=== PATIENT | male | born 1940 | race Caucasian/White ===

== ENCOUNTER 2020-06-07 11:19 | Outpatient (REF) | payer MEDICARE, SELFPAY ==
[2020-06-07 12:22] LABS: MANUAL DIFF FLAG NO
[2020-06-07 12:30] LABS: Basophils Absolute Auto 0.1 X10*3/uL (0.0-0.2); Basophils Percent Auto 0.7 % (0-2); Eosinophils Absolute Auto 0.1 X10*3/uL (0.0-0.4); Eosinophils Percent Auto 1.8 % (0-4); Hematocrit 42.4 % (42-52); Hemoglobin 13.6 g/dl (14.0-18.0); Imm Gran Abs Auto 0.01 X10*3/uL (0.00-0.03); Imm Gran Pct Auto 0.1 % (0.0-0.4); Lymphocytes Absolute Auto 1.3 X10*3/uL (1.2-4.9); Lymphocytes Percent Auto 16.6 % (20-40); Mean Corpuscular HGB Conc 32.1 g/dl (31.0-36.0); Mean Corpuscular Hemoglobin 31.4 pg (27.0-33.0); Mean Corpuscular Volume 97.9 fL (80-98); Mean Platelet Volume 10.5 fL (9.4-12.4); Monocytes Absolute Auto 0.6 X10*3/uL (0.1-1.2); Monocytes Percent Auto 7.2 % (2-11); Neutrophils Absolute Auto 5.6 X10*3/uL (2.0-8.3); Neutrophils Percent Auto 73.6 % (45-73); Platelet Count 179 X10*3/uL (160-400); Red Blood Count 4.33 X10*6/uL (4.60-5.80); Red Cell Distribution Width 12.7 % (11.0-16.0); White Blood Count 7.6 X10*3/uL (4.8-10.8)
[2020-06-07 12:40] LABS: Estimated Average Glucose 197 mg/dL; Hemoglobin A1c % 8.5 %
[2020-06-07 13:12] LABS: Alanine Aminotransferase 10 U/L (0-40); Alkaline Phosphatase 81 U/L (39-117); Anion Gap 14 (12-20); Aspartate Amino Transferase 14 U/L (5-37); Bilirubin Total 0.4 mg/dL (0.0-1.0); Blood Urea Nitrogen 21 mg/dL (9-16); Carbon Dioxide 30 mmol/L (22-29); Chloride 102 mmol/L (96-108); Estimated Glomerular Filt Rate 57; Glucose Random 290 mg/dL (60-115); Potassium 4.8 mmol/l (3.3-5.1); Sodium 141 mmol/L (135-145)
[2020-06-07 14:24] LABS: Creatinine Urine 128.02 mg/dL; Microalbum/Creatinine Ratio Ur 185.1 ug/mg cr
== END 2020-06-07 11:20 | disposition home or self-care (01) ==
LOC: HO.LAB 11:19
PROVIDERS: PCP Internal Medicine; Visit Provider Internal Medicine
DX: E11.9 Type 2 diabetes mellitus without complications (principal); I10 Essential (primary) hypertension; I42.9 Cardiomyopathy, unspecified; I25.10 Atherosclerotic heart disease of native coronary artery without angina pectoris
CPT/HCPCS: 36415; 80053; 82043; 83036; 85025

== ENCOUNTER 2020-09-17 08:01 | Outpatient (REF) | payer MEDICARE, SELFPAY ==
[2020-09-17 09:19] LABS: MANUAL DIFF FLAG NO
[2020-09-17 09:30] LABS: Estimated Average Glucose 197 mg/dL; Hemoglobin A1c % 8.5 %
[2020-09-17 09:32] LABS: Basophils Absolute Auto 0.1 X10*3/uL (0.0-0.2); Basophils Percent Auto 0.7 % (0-2); Eosinophils Absolute Auto 0.2 X10*3/uL (0.0-0.4); Eosinophils Percent Auto 2.5 % (0-4); Hematocrit 44.5 % (42-52); Hemoglobin 13.9 g/dl (14.0-18.0); Imm Gran Abs Auto 0.02 X10*3/uL (0.00-0.03); Imm Gran Pct Auto 0.3 % (0.0-0.4); Lymphocytes Absolute Auto 1.4 X10*3/uL (1.2-4.9); Lymphocytes Percent Auto 18.6 % (20-40); Mean Corpuscular HGB Conc 31.2 g/dl (31.0-36.0); Mean Corpuscular Hemoglobin 30.8 pg (27.0-33.0); Mean Corpuscular Volume 98.5 fL (80-98); Mean Platelet Volume 10.6 fL (9.4-12.4); Monocytes Absolute Auto 0.7 X10*3/uL (0.1-1.2); Monocytes Percent Auto 8.6 % (2-11); Neutrophils Absolute Auto 5.3 X10*3/uL (2.0-8.3); Neutrophils Percent Auto 69.3 % (45-73); Platelet Count 171 X10*3/uL (160-400); Red Blood Count 4.52 X10*6/uL (4.60-5.80); White Blood Count 7.6 X10*3/uL (4.8-10.8)
[2020-09-17 09:49] LABS: Alanine Aminotransferase 12 U/L (0-40); Albumin Level 4.3 g/dL (3.5-5.0); Alkaline Phosphatase 89 U/L (39-117); Anion Gap 14 (12-20); Aspartate Amino Transferase 17 U/L (5-37); Bilirubin Total 0.6 mg/dL (0.0-1.0); Blood Urea Nitrogen 19 mg/dL (9-16); Calcium 9.7 mg/dL (8.4-10.2); Carbon Dioxide 32 mmol/L (22-29); Chloride 104 mmol/L (96-108); Cholesterol 93 mg/dL; Estimated Glomerular Filt Rate > 60; Glucose Fasting 193 mg/dL (60-99); HDL Cholesterol 31 mg/dL; LDL Cholesterol Calculated 50 mg/dl; Potassium 5.2 mmol/L (3.3-5.1); Sodium 145 mmol/L (135-145); Total Protein 6.6 g/dL (6.5-8.0); Triglycerides 61 mg/dL
[2020-09-17 10:07] LABS: Prostate Specific Antigen 2.97 ng/mL (<0.05-4.0)
[2020-09-17 11:04] LABS: Glucose Urine UA NEG (NEG); Leukocyte Esterase Urine NEG (NEG); Nitrite Urine NEG (NEG); PH 6.5 (5.0-8.0); Urine Blood TRACE (NEG); Urine Ketones NEG (NEG); Urine Protein 1+ MG/DL (NEG-TRACE)
[2020-09-17 11:06] LABS: Appearance Urine CLEAR; Color Urine YELLOW
[2020-09-17 11:27] LABS: Microalbum/Creatinine Ratio Ur 238.4 ug/mg cr
[2020-09-17 11:30] LABS: Bacteria Urine 1+ /LPF; Mucus Urine 1+ /LPF; WBC Urine 0-2 /HPF (0-4)
== END 2020-09-17 08:02 | disposition home or self-care (01) ==
LOC: HO.LAB 08:01
PROVIDERS: PCP Internal Medicine; Visit Provider Internal Medicine
DX: Z00.00 Encounter for general adult medical examination without abnormal findings (principal); Z12.5 Encounter for screening for malignant neoplasm of prostate; I25.10 Atherosclerotic heart disease of native coronary artery without angina pectoris; N40.0 Benign prostatic hyperplasia without lower urinary tract symptoms; E78.00 Pure hypercholesterolemia, unspecified; E11.9 Type 2 diabetes mellitus without complications; I42.9 Cardiomyopathy, unspecified
CPT/HCPCS: 36415; 80053; 80061; 81001; 81003; 82043; 83036; 84153; 85025

== ENCOUNTER 2020-12-28 10:56 | Outpatient (REF) | payer MEDICARE, SELFPAY ==
[2020-12-28 11:27] LABS: MANUAL DIFF FLAG NO
[2020-12-28 11:36] LABS: Basophils Absolute Auto 0.1 X10*3/uL (0.0-0.2); Basophils Percent Auto 0.9 % (0-2); Eosinophils Absolute Auto 0.2 X10*3/uL (0.0-0.4); Eosinophils Percent Auto 2.4 % (0-4); Hematocrit 41.7 % (42-52); Hemoglobin 13.1 g/dl (14.0-18.0); Imm Gran Abs Auto 0.03 X10*3/uL (0.00-0.03); Imm Gran Pct Auto 0.4 % (0.0-0.4); Lymphocytes Absolute Auto 1.4 X10*3/uL (1.2-4.9); Lymphocytes Percent Auto 17.6 % (20-40); Mean Corpuscular HGB Conc 31.4 g/dl (31.0-36.0); Mean Corpuscular Hemoglobin 30.6 pg (27.0-33.0); Mean Corpuscular Volume 97.4 fL (80-98); Mean Platelet Volume 10.3 fL (9.4-12.4); Monocytes Absolute Auto 0.6 X10*3/uL (0.1-1.2); Monocytes Percent Auto 7.8 % (2-11); Neutrophils Absolute Auto 5.5 X10*3/uL (2.0-8.3); Neutrophils Percent Auto 70.9 % (45-73); Platelet Count 169 X10*3/uL (160-400); Red Blood Count 4.28 X10*6/uL (4.60-5.80); Red Cell Distribution Width 13.1 % (11.0-16.0); White Blood Count 7.8 X10*3/uL (4.8-10.8)
[2020-12-28 12:08] LABS: Alanine Aminotransferase 13 U/L (0-40); Alkaline Phosphatase 81 U/L (39-117); Anion Gap 12 (12-20); Aspartate Amino Transferase 17 U/L (5-37); Bilirubin Total 0.5 mg/dL (0.0-1.0); Blood Urea Nitrogen 17 mg/dL (9-16); Calcium 9.4 mg/dL (8.4-10.2); Carbon Dioxide 31 mmol/L (22-29); Chloride 104 mmol/L (96-108); Estimated Glomerular Filt Rate > 60; Glucose Random 253 mg/dL (60-115); Potassium 5.4 mmol/L (3.3-5.1); Sodium 142 mmol/L (135-145); Total Protein 6.2 g/dL (6.5-8.0)
[2020-12-28 12:12] LABS: Estimated Average Glucose 212 mg/dL
[2020-12-28 12:13] LABS: Creatinine Urine 136.29 mg/dL
== END 2020-12-28 10:57 | disposition home or self-care (01) ==
LOC: HO.LAB 10:56
PROVIDERS: PCP Internal Medicine; Visit Provider Internal Medicine
DX: I12.9 Hypertensive chronic kidney disease with stage 1 through stage 4 chronic kidney disease, or unspecified chronic kidney disease (principal); N18.9 Chronic kidney disease, unspecified; E11.22 Type 2 diabetes mellitus with diabetic chronic kidney disease
CPT/HCPCS: 36415; 80053; 82043; 83036; 85025

== ENCOUNTER 2021-03-06 10:50 | Outpatient (REF) | payer MEDICARE, SELFPAY ==
[2021-03-06 10:56] LABS: MANUAL DIFF FLAG NO
[2021-03-06 11:36] LABS: Basophils Absolute Auto 0.1 X10*3/uL (0.0-0.2); Basophils Percent Auto 0.6 % (0-2); Eosinophils Absolute Auto 0.2 X10*3/uL (0.0-0.4); Eosinophils Percent Auto 2.4 % (0-4); Hemoglobin 13.1 g/dl (14.0-18.0); Imm Gran Abs Auto 0.04 X10*3/uL (0.00-0.03); Imm Gran Pct Auto 0.5 % (0.0-0.4); Lymphocytes Absolute Auto 1.2 X10*3/uL (1.2-4.9); Lymphocytes Percent Auto 14.5 % (20-40); Mean Corpuscular Hemoglobin 31.4 pg (27.0-33.0); Mean Corpuscular Volume 98.3 fL (80-98); Mean Platelet Volume 10.1 fL (9.4-12.4); Monocytes Absolute Auto 0.8 X10*3/uL (0.1-1.2); Monocytes Percent Auto 9.1 % (2-11); Neutrophils Absolute Auto 6.1 X10*3/uL (2.0-8.3); Neutrophils Percent Auto 72.9 % (45-73); Platelet Count 192 X10*3/uL (160-400); Red Blood Count 4.17 X10*6/uL (4.60-5.80); Red Cell Distribution Width 13.2 % (11.0-16.0); White Blood Count 8.4 X10*3/uL (4.8-10.8)
[2021-03-06 11:54] LABS: Estimated Average Glucose 203 mg/dL; Hemoglobin A1c % 8.7 %
[2021-03-06 12:00] LABS: Alanine Aminotransferase 19 U/L (0-40); Albumin Level 3.9 g/dL (3.5-5.0); Alkaline Phosphatase 83 U/L (39-117); Anion Gap 14 (12-20); Aspartate Amino Transferase 18 U/L (5-37); Bilirubin Total 0.6 mg/dL (0.0-1.0); Blood Urea Nitrogen 19 mg/dL (9-16); Calcium 9.6 mg/dL (8.4-10.2); Carbon Dioxide 29 mmol/L (22-29); Chloride 104 mmol/L (96-108); Estimated Glomerular Filt Rate > 60; Glucose Random 267 mg/dL (60-115); Potassium 5.5 mmol/L (3.3-5.1); Sodium 141 mmol/L (135-145)
== END 2021-03-06 10:51 | disposition home or self-care (01) ==
LOC: HO.LAB 10:50
PROVIDERS: PCP Internal Medicine; Visit Provider Internal Medicine
DX: E11.9 Type 2 diabetes mellitus without complications (principal); I42.9 Cardiomyopathy, unspecified
CPT/HCPCS: 36415; 80053; 83036; 85025

== ENCOUNTER 2021-07-03 10:17 | Outpatient (REF) | payer MEDICARE, SELFPAY ==
[2021-07-03 10:37] LABS: MANUAL DIFF FLAG NO
[2021-07-03 11:08] LABS: Basophils Absolute Auto 0.1 X10*3/uL (0.0-0.2); Basophils Percent Auto 0.8 % (0-2); Eosinophils Absolute Auto 0.2 X10*3/uL (0.0-0.4); Eosinophils Percent Auto 2.7 % (0-4); Hematocrit 43.1 % (42.0-52.0); Hemoglobin 13.5 g/dl (14.0-18.0); Imm Gran Abs Auto 0.02 X10*3/uL (0.00-0.03); Imm Gran Pct Auto 0.3 % (0.0-0.4); Lymphocytes Absolute Auto 1.1 X10*3/uL (1.2-4.9); Lymphocytes Percent Auto 15.2 % (20-40); Mean Corpuscular HGB Conc 31.3 g/dl (31.0-36.0); Mean Corpuscular Hemoglobin 30.4 pg (27.0-33.0); Mean Corpuscular Volume 97.1 fL (80.0-98.0); Mean Platelet Volume 9.8 fL (9.4-12.4); Monocytes Absolute Auto 0.6 X10*3/uL (0.1-1.2); Monocytes Percent Auto 7.5 % (2-11); Neutrophils Absolute Auto 5.4 x10*3/uL (2.0-8.3); Neutrophils Percent Auto 73.5 % (45-73); Platelet Count 173 X10*3/uL (160-400); Red Blood Count 4.44 X10*6/uL (4.60-5.80); Red Cell Distribution Width 12.8 % (11.0-16.0); White Blood Count 7.3 X10*3/uL (4.8-10.8)
[2021-07-03 11:22] LABS: Estimated Average Glucose 217 mg/dL; Hemoglobin A1c % 9.2 %
[2021-07-03 11:29] LABS: Alanine Aminotransferase 16 U/L (0-40); Albumin Level 4.1 g/dL (3.5-5.0); Alkaline Phosphatase 80 U/L (39-117); Anion Gap 11 (12-20); Aspartate Amino Transferase 16 U/L (5-37); Bilirubin Total 0.5 mg/dL (0.0-1.0); Blood Urea Nitrogen 16 mg/dL (9-16); Calcium 9.6 mg/dL (8.4-10.2); Carbon Dioxide 33 mmol/L (22-29); Chloride 102 mmol/L (96-108); Estimated Glomerular Filt Rate > 60; Glucose Random 314 mg/dL (60-115); Sodium 141 mmol/L (135-145); Total Protein 6.4 g/dL (6.5-8.0)
[2021-07-03 16:08] LABS: Creatinine Urine 83.03 mg/dL; Microalbum/Creatinine Ratio Ur 227.6 ug/mg cr
== END 2021-07-03 10:18 | disposition home or self-care (01) ==
LOC: HO.LAB 10:17
PROVIDERS: PCP Internal Medicine; Visit Provider Internal Medicine
DX: E11.9 Type 2 diabetes mellitus without complications (principal); I25.10 Atherosclerotic heart disease of native coronary artery without angina pectoris
CPT/HCPCS: 36415; 80053; 82043; 83036; 85025

== ENCOUNTER 2021-08-18 11:08 | Outpatient (REF) | payer MEDICARE, SELFPAY ==
[2021-08-18 12:46] LABS: Estimated Average Glucose 189 mg/dL; Hemoglobin A1c % 8.2 %
[2021-08-18 13:23] LABS: Anion Gap 15 (12-20); Blood Urea Nitrogen 20 mg/dL (9-16); Calcium 9.7 mg/dL (8.4-10.2); Carbon Dioxide 28 mmol/L (22-29); Chloride 103 mmol/L (96-108); Estimated Glomerular Filt Rate > 60; Glucose Random 336 mg/dL (60-115); Potassium 4.8 mmol/L (3.3-5.1); Sodium 141 mmol/L (135-145)
== END 2021-08-18 11:09 | disposition home or self-care (01) ==
LOC: HO.LAB 11:08
PROVIDERS: PCP Internal Medicine; Visit Provider Internal Medicine
DX: I25.10 Atherosclerotic heart disease of native coronary artery without angina pectoris (principal); E11.9 Type 2 diabetes mellitus without complications
CPT/HCPCS: 36415; 80048; 83036

== ENCOUNTER 2021-10-21 10:37 | Outpatient (REF) | payer MEDICARE, SELFPAY ==
--- NOTE | ~2021-10-21 | XR_ITS ---
EXAMINATION: XR CHEST CLINICAL INFORMATION: Weight loss. Rule out lesion. Cardiomyopathy. COMPARISON: July 06, 2017 and July 16, 2015 TECHNIQUE: 2 views of the chest were obtained. FINDINGS: There is noted to be an enlarging 3.4 cm irregularly marginated soft tissue mass within either the superior segment of the right lower lobe or within the right upper lobe. There is also noted to be an approximately 1.6 cm nodule within the lower left lung. These lesions are suspicious for possible malignancy. Heart normal size. No evidence of pulmonary edema. No pneumothorax or pleural effusion. Unipolar pacemaker/defibrillator in place. XR/XR chest 2V IMPRESSION: 2 lung nodules as described suspicious for possible malignancy.
== END 2021-10-21 10:38 | disposition home or self-care (01) ==
LOC: HO.XRAY 10:37
PROVIDERS: PCP Internal Medicine; Visit Provider Internal Medicine
DX: I42.9 Cardiomyopathy, unspecified (principal); E11.9 Type 2 diabetes mellitus without complications; R63.4 Abnormal weight loss
CPT/HCPCS: 71046

== ENCOUNTER 2021-10-30 10:07 | Outpatient (REF) | payer MEDICARE, SELFPAY ==
--- NOTE | ~2021-10-30 | CT_ITS ---
EXAMINATION: CT CHEST WITHOUT CONTRAST CLINICAL INFORMATION: Follow-up lung nodules COMPARISON: Previous chest x-ray September 2021 TECHNIQUE: Multidetector volumetric CT imaging of the chest was done. Axial MIP volume rendering provided. Sagittal and coronal reformatted images were obtained. This CT examination was performed using dose optimization techniques as appropriate, variously including the following: *Automated exposure control *Adjustment of mA and/or kV according to patient size (this includes techniques or standardized protocols for targeted exams where dose is matched to indication/reason for exam; i.e. extremities or head) *Use of iterative reconstruction technique DLP: 127 mGy-cm FINDINGS: LUNGS: There is a 2.2 x 3 cm mass/nodule in the superior segment of the right lower lobe. This abuts the major fissure and retracts the fissure. It is uncertain whether this crosses the fissure involving the posterior segment of the right upper lobe. This has spiculated margins. Evaluation for left pulmonary nodules is somewhat limited due to artifact from respiratory motion. There is an 8 mm nodule in the superior segment of the left lower lobe axial image 280 series 7. There is a 1.3 cm nodule in the left lower lobe axial image 480 series 7. There is a 3 mm right upper lobe nodule axial image 125 series 7. There is a 3 mm left upper lobe nodule axial image 300 series 7. MEDIASTINUM: There are small mediastinal lymph nodes. No enlarged lymph nodes are seen. The heart does not appear enlarged. There is coronary artery calcification. There is a left subclavian AICD device. The thoracic aorta is normal in caliber. PLEURA: There is no pleural effusion. No pleural mass or thickening. AXILLA: No lymphadenopathy. UPPER ABDOMEN: There are gallstones in the gallbladder. There are multiple bilateral renal stones. Largest visualized stone measures 1 x 1.4 cm in the upper pole of the right kidney. There is diverticulosis of the colon. OSSEOUS STRUCTURES: There are degenerative changes of the spine. CT/CT chest wo con IMPRESSION: Bilateral pulmonary nodules, largest a 2.2 x 3 cm right lower lobe nodule//mass. Appearance is concerning for malignancy. Severe coronary artery calcification. Large bilateral renal stones. Fleischner guidelines were followed.
== END 2021-10-30 10:08 | disposition home or self-care (01) ==
LOC: HO.CT 10:07
PROVIDERS: PCP Internal Medicine; Visit Provider Internal Medicine
DX: R91.8 Other nonspecific abnormal finding of lung field (principal)
CPT/HCPCS: 71250

== ENCOUNTER 2021-11-04 12:03 | Outpatient (REF) | payer MEDICARE, SELFPAY ==
[2021-11-04 12:24] LABS: MANUAL DIFF FLAG NO
[2021-11-04 12:52] LABS: Basophils Absolute Auto 0.1 X10*3/uL (0.0-0.2); Basophils Percent Auto 1.2 % (0-2); Eosinophils Absolute Auto 0.2 X10*3/uL (0.0-0.4); Eosinophils Percent Auto 2.3 % (0-4); Hematocrit 37.3 % (42.0-52.0); Hemoglobin 11.8 g/dl (14.0-18.0); Imm Gran Abs Auto 0.02 X10*3/uL (0.00-0.03); Imm Gran Pct Auto 0.3 % (0.0-0.4); Lymphocytes Absolute Auto 1.1 X10*3/uL (1.2-4.9); Lymphocytes Percent Auto 15.1 % (20-40); Mean Corpuscular HGB Conc 31.6 g/dl (31.0-36.0); Mean Corpuscular Volume 101.1 fL (80.0-98.0); Mean Platelet Volume 10.1 fL (9.4-12.4); Monocytes Absolute Auto 0.5 X10*3/uL (0.1-1.2); Monocytes Percent Auto 7.2 % (2-11); Neutrophils Absolute Auto 5.4 x10*3/uL (2.0-8.3); Neutrophils Percent Auto 73.9 % (45-73); Platelet Count 177 X10*3/uL (160-400); Red Blood Count 3.69 X10*6/uL (4.60-5.80); Red Cell Distribution Width 13.9 % (11.0-16.0); White Blood Count 7.3 X10*3/uL (4.8-10.8)
[2021-11-04 13:07] LABS: INTERNATIONAL NORM RATIO 1.1 (0.9-1.1); Prothrombin Time 12.6 SEC (9.9-13.0)
[2021-11-04 13:10] LABS: Partial Thromboplastin Time 31.7 SEC (24.1-38.0)
== END 2021-11-04 12:04 | disposition home or self-care (01) ==
LOC: HO.LAB 12:03
PROVIDERS: PCP Internal Medicine Medical Oncology; Visit Provider Internal Medicine Medical Oncology
DX: R91.1 Solitary pulmonary nodule (principal); D49.1 Neoplasm of unspecified behavior of respiratory system; Z79.01 Long term (current) use of anticoagulants
CPT/HCPCS: 36415; 85025; 85610; 85730

== ENCOUNTER 2021-11-18 10:42 | Outpatient (REF) | payer MEDICARE, SELFPAY ==
--- NOTE | ~2021-11-18 | PE_ITS ---
EXAMINATION: Fluorine-18 FDG PET/CT Scan CLINICAL INDICATION: Initial treatment management. Right lower lobe lung nodule. PROCEDURE: 82 minutes following the intravenous administration of 18.4 mCi of fluorine 18 FDG, images from the base of the skull to the mid thighs were obtained using a combined PET/CT scanner with CT scan based attenuation correction. No oral contrast was administered. No intravenous contrast was administered. Transverse, coronal, sagittal, and volume reconstruction projections were obtained. The patient's blood glucose as determined by a finger stick, was 211 mg/dl immediately prior to injection. Total CT exam dose-length product 205.21 mGy-cm * These CT images were obtained using dose optimization techniques as appropriate, variously including the following: Automated exposure control * Adjustment of mA and/or kV according to patient size (this includes techniques or standardized protocols for targeted exams where dose is matched to indication/reason for exam; i.e. extremities or head) * Use of iterative reconstruction technique COMPARISON: No previous PET/CT scan is available for comparison. CT scan of the chest dated 10/30/2021 is available for comparison. FINDINGS: (Slice numbers described in this report are numbered superiorly to inferiorly with slice #1 in the head) NECK AND VISUALIZED HEAD: No foci of abnormal FDG activity are noted. The distribution of FDG activity is physiological. There is no cervical lymphadenopathy. THORAX: The spiculated right lung pulmonary mass a nodule in the superior segment of the left lower lobe measures 1.3 x 1.0 cm in largest transverse dimensions visualized on the prior 10/30/[address] scan is again visualized and is unchanged in appearance. This is FDG avid showing SUVmax 5.3, slice 87/267. This is again noted to penetrate the major interlobar fissure and extend into the posterior segment of the right upper lobe but most of the volume of the mass is in the superior segment of the right lower lobe. On the current CT images this measures 3.3 x 2.1 cm in largest transverse dimensions, and approximately 2.5 cm cephalocaudad. Additional 0.3 cm nodules visualized on 10/30/2021 are again visualized, in the right upper lobe posteriorly, slice 176/698 and anterolaterally in the left upper lobe, slice 255/698. Both of these are much too small to be characterized on the FDG PET images. No additional suspicious pulmonary nodules are visualized. There is no mediastinal, supraclavicular, or axillary lymphadenopathy. There is no pleural or pericardial fluid, or pneumothorax. A left-sided AICD and associated leads are noted, unchanged from 10/30/2021, ABDOMEN AND PELVIS: There is diffuse FDG activity throughout the gastrointestinal tract, most prominently in the hepatic flexure of the large bowel. This is probably physiological, possibly due to metformin use. No associated CT abnormalities are present. There is diverticulosis without evidence of diverticulitis. The hollow viscera are otherwise unremarkable. There are no suspicious foci of abnormally increased FDG activity present in the abdomen or pelvis. The liver is unremarkable. Multiple deep tendon densely calcified gallstones are present. The gallbladder is otherwise unremarkable. The spleen is unremarkable. Multiple bilateral densely calcified nonobstructing renal calculi are present, the largest in the upper pole of the right kidney measuring 2.2 x 1.3 cm in largest transverse dimensions. The kidneys are otherwise unremarkable. The adrenal glands and pancreas are unremarkable. Densely calcified calculi are present in the urinary bladder. The pelvic organs are otherwise unremarkable. There is no retroperitoneal, mesenteric, pelvic or inguinal lymphadenopathy. MUSCULOSKELETAL: No foci of abnormal FDG activity are present in the osseous structures. There are diffuse degenerative changes in the spine but no suspicious sclerotic or lytic lesions are visualized. VASCULAR: Diffuse vascular calcifications including dense coronary calcifications are noted. PET/PET CT fusion skull to thigh IMPRESSION: 1. The previously visualized right lung mass shows abnormal FDG activity and is most likely malignant in etiology. 2. No additional abnormalities suspicious for metastatic or other malignant lesions are noted. 3. Cholelithiasis. 4. Densely calcified bilateral nonobstructing renal calculi and prominent bladder calculi are noted. 5. Diffuse vascular calcifications including coronary.
== END 2021-11-18 10:43 | disposition home or self-care (01) ==
LOC: HO.PET 10:42
PROVIDERS: PCP Internal Medicine Medical Oncology; Visit Provider Internal Medicine Medical Oncology
DX: Z13.89 Encounter for screening for other disorder (principal)

== ENCOUNTER 2021-11-21 12:38 | Emergency (ER) | payer MEDICARE, SELFPAY ==
--- NOTE | ~2021-11-21 | XR_ITS ---
EXAMINATION: XR CHEST CLINICAL INFORMATION: Shortness of breath COMPARISON: Chest x-ray 10/21/2021 TECHNIQUE: Frontal view of the chest was obtained. FINDINGS: Pulmonary nodules in the right midlung measuring up to 3 cm in left lower lung measuring 1.2 cm appears slightly smaller than on prior chest x-ray. No airspace consolidation, pleural effusion, or pneumothorax. Normal cardiomediastinal silhouette. No evidence pulmonary edema. Left-sided AICD with lead tip terminating in the right ventricle, unchanged. No acute osseous injury. XR/XR chest 1V IMPRESSION: 1. No acute pulmonary process. 2. Pulmonary nodules in the right midlung and left lower lung redemonstrated, perhaps minimally smaller than on prior chest x-ray 10/21/2021.
[2021-11-21 12:51] VITALS: BP 118/55; PULSE 63; RESP 16; TEMP 36.5; O2SAT 97; BMI 21.7
--- NOTE | 2021-11-21 12:56 | ECG_ITS ---
Test Reason : shortness of breath Blood Pressure : / mmHG Vent. Rate : 066 BPM Atrial Rate : 066 BPM P-R Int : 190 ms QRS Dur : 100 ms QT Int : 416 ms P-R-T Axes : 071 044 002 degrees QTc Int : 436 ms Sinus rhythm with Premature atrial complexes cannot exclude Inferior infarct , age undetermined Cannot rule out Anterior infarct , age undetermined Abnormal ECG No previous ECGs available Referred By: Generic ED Physician Electronically Signed By:JAH CASTELLANOS
[2021-11-21 13:18] LABS: MANUAL DIFF FLAG NO
[2021-11-21 13:19] LABS: Basophils Absolute Auto 0.1 X10*3/uL (0.0-0.2); Basophils Percent Auto 0.4 % (0-2); Eosinophils Absolute Auto 0.1 X10*3/uL (0.0-0.4); Eosinophils Percent Auto 0.6 % (0-4); Hematocrit 43.4 % (42.0-52.0); Hemoglobin 13.9 g/dl (14.0-18.0); Imm Gran Abs Auto 0.05 X10*3/uL (0.00-0.03); Imm Gran Pct Auto 0.4 % (0.0-0.4); Lymphocytes Absolute Auto 1.1 X10*3/uL (1.2-4.9); Lymphocytes Percent Auto 8.1 % (20-40); Mean Corpuscular Hemoglobin 31.8 pg (27.0-33.0); Mean Corpuscular Volume 99.3 fL (80.0-98.0); Mean Platelet Volume 10.1 fL (9.4-12.4); Monocytes Absolute Auto 1.2 X10*3/uL (0.1-1.2); Monocytes Percent Auto 8.5 % (2-11); Neutrophils Absolute Auto 11.2 x10*3/uL (2.0-8.3); Platelet Count 170 X10*3/uL (160-400); Red Blood Count 4.37 X10*6/uL (4.60-5.80); Red Cell Distribution Width 13.4 % (11.0-16.0); White Blood Count 13.7 X10*3/uL (4.8-10.8)
[2021-11-21 13:36] LABS: COVID-19 Test Negative (Negative)
[2021-11-21 13:37] LABS: Anion Gap 15 (12-20); Blood Urea Nitrogen 22 mg/dL (9-16); Calcium 8.5 mg/dL (8.4-10.2); Carbon Dioxide 22 mmol/L (22-29); Chloride 105 mmol/L (96-108); Creatinine Clr Calc Pharmacy 36.5; Estimated Glomerular Filt Rate 49; Glucose Random 221 mg/dL (60-115); Potassium 4.6 mmol/L (3.3-5.1); Sodium 137 mmol/L (135-145)
[2021-11-21 13:44] LABS: Troponin-I High Sensitivity 11.3 ng/L (<3.5-35.0)
== END 2021-11-21 16:49 | disposition left against medical advice (07) ==
PROVIDERS: Emergency Provider Emergency Medicine; PCP Internal Medicine Medical Oncology
DX: R06.02 Shortness of breath (principal); R26.81 Unsteadiness on feet; Z20.822 Contact with and (suspected) exposure to COVID-19; Z79.899 Other long term (current) drug therapy
CPT/HCPCS: 36415; 71045; 80048; 84484; 85025; 87635; 93005; 99281; 99283

== ENCOUNTER 2021-11-26 10:32 | Inpatient (IN) | payer MEDICARE, SELFPAY ==
--- NOTE | 2021-11-26 | ECG_ITS ---
Test Reason : weakness Blood Pressure : / mmHG Vent. Rate : 052 BPM Atrial Rate : 052 BPM P-R Int : 206 ms QRS Dur : 094 ms QT Int : 452 ms P-R-T Axes : 068 063 -73 degrees QTc Int : 420 ms Sinus bradycardia with Premature atrial complexes Septal infarct (cited on or before 21-NOV-2021) Cannot ruke out inferior infarct T wave abnormality, consider inferolateral ischemia Abnormal ECG When compared with ECG of 21-NOV-2021 13:05, T wave inversion now evident in Inferior leads T wave inversion now evident in Lateral leads Referred By: Generic ED Physician Electronically Signed By:Nestor [place]
--- NOTE | ~2021-11-26 | XR_ITS ---
EXAMINATION: XR RIBS, RIGHT CLINICAL INFORMATION: Fall with right posterior chest wall pain COMPARISON: Previous chest x-ray most recent from earlier this month TECHNIQUE: 3 views of the right ribs were obtained. FINDINGS: The cardiac and mediastinal contours are stable. There is a left subclavian AICD that appears unchanged. There are bilateral pulmonary nodules that appear unchanged. The lungs are otherwise clear. There is no pleural effusion or pneumothorax. No rib fracture is seen. There are degenerative changes of the spine. XR/XR ribs RT min 3V w CXR1V IMPRESSION: No evidence for acute disease in the chest. No rib fracture seen.
--- NOTE | ~2021-11-26 | CT_ITS ---
EXAMINATION: NONCONTRAST HEAD CT NONCONTRAST CERVICAL SPINE CT INDICATION INFORMATION: Fall COMPARISON: None TECHNIQUE: Separate noncontrast CT examinations of the head and cervical spine were performed. Coronal and sagittal images were created for each examination at the technologist workstation. This CT examination was performed using dose optimization techniques as appropriate, variously including the following: *Automated exposure control *Adjustment of mA and/or kV according to patient size (this includes techniques or standardized protocols for targeted exams where dose is matched to indication/reason for exam; i.e. extremities or head) *Use of iterative reconstruction technique DLP: 1025 mGy-cm FINDINGS: Head: There is no evidence of acute intracranial hemorrhage or territorial infarction. No abnormal mass effect or midline shift is seen. [place]pp[place] to white matter differentiation is well preserved. No extra-axial fluid collections are identified. No hydrocephalus. Proportional prominence of the ventricles and sulcal spaces is consistent with moderate volume loss. Patchy periventricular and deep white matter hypoattenuation is consistent with moderate small vessel ischemic changes. No acute osseous or soft tissue abnormality. The mastoid air cells and visualized portions of the paranasal sinuses are well aerated. Cervical spine: There is anatomic alignment of the vertebral bodies and posterior elements. The atlantoaxial and atlantooccipital articulations are intact. Vertebral body heights are maintained. There is multilevel intervertebral disc space narrowing with endplate osteophyte formation and facet arthropathy. No evidence of acute fracture. No prevertebral soft tissue swelling. Visualized portions of the lung apices are unremarkable. The thyroid gland is unremarkable. CT/CT cervical spine wo con IMPRESSION: No acute intracranial finding. No acute fracture or malalignment of the cervical spine. Moderate degenerative change.
--- NOTE | ~2021-11-26 | XR_ITS ---
EXAMINATION: XR CHEST CLINICAL INFORMATION: Lower lobe tumor. Weakness. COMPARISON: Chest x-ray dated November 21, 2021. Chest CT dated October 30, 2021. TECHNIQUE: Portable AP view of the chest was obtained. XR/XR chest 1V FINDINGS/IMPRESSION: Bilateral lung masses are again visualized, better appreciated on recent prior CT scan. There is no acute radiographic finding. No infiltrate, effusion, or pneumothorax is seen. The heart appears normal in size. The tip of a left subclavian pulse generator device lead projects over the right ventricle. The aorta is mildly atherosclerotic. The right hemidiaphragm is mildly elevated, unchanged. The mediastinum, bones and soft tissues appear unremarkable.
--- NOTE | ~2021-11-26 | XR_ITS ---
EXAMINATION: XR LUMBOSACRAL SPINE CLINICAL INFORMATION: Fall. Right posterior chest wall pain. COMPARISON: PET/CT scan 11/18/2021 TECHNIQUE: Three views of the lumbosacral spine. FINDINGS: There is mild curvature of the mid lumbar spine to the right. Bone alignment is otherwise normal. No fracture or dislocation is seen. There is multilevel degenerative spondylosis. There is disc space narrowing at L5-S1. There is multilevel facet arthritis. Bilateral renal stones and bladder stones are noted. XR/XR lumbar spine 2-3V IMPRESSION: Degenerative changes. No fracture or dislocation.
--- NOTE | ~2021-11-26 | XR_ITS ---
EXAMINATION: XR CHEST CLINICAL INFORMATION: Cough COMPARISON: Multiple prior examinations including chest x-ray 11/28/20082021 TECHNIQUE: Frontal view of the chest was obtained. FINDINGS: Left subclavian AICD unchanged Right lung pulmonary nodule unchanged. Small nodules noted on prior CT not conspicuous on x-ray. Cardiac mediastinal silhouette unremarkable. Bone and soft tissues unremarkable. XR/XR chest 1V IMPRESSION: No acute disease. Right pulmonary nodule unchanged.
[2021-11-26 10:58] VITALS: BP 97/69; PULSE 66; RESP 16; TEMP 36.7; BMI 18.5
--- NOTE | 2021-11-26 11:38 | ED_ITS ---
HPI - Weakness General Chief complaint: Weakness <Jamel Smalls MD - Last Filed: 11/26/21 13:52> Stated complaint: lethargic <Jamel Smalls MD - Last Filed: 11/26/21 13:52> Time Seen by Provider: 11/26/21 11:38 <Jamel Smalls MD - Last Filed: 11/26/21 13:52> Source: family <Jamel Smalls MD - Last Filed: 11/26/21 13:52> Mode of arrival: ambulatory <Jamel Smalls MD - Last Filed: 11/26/21 13:52> Limitations: no limitations <Jamel Smalls MD - Last Filed: 11/26/21 13:52> History of Present Illness HPI Narrative: weight loss and weakness, saw Dr. Parry and had a PET scan. 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 Now with increased tiredness and fatigue. Not getting up or walking. Lethargic, disoriented, could not get himself dressed this morning. Not eating or drinking. <Jamel Smalls MD - Last Filed: 11/26/21 13:52> MD Complaint: generalized weakness <Jamel Smalls MD - Last Filed: 11/26/21 13:52> Onset (ago): week(s) <Jamel Smalls MD - Last Filed: 11/26/21 13:52> Duration: constant <Jamel Smalls MD - Last Filed: 11/26/21 13:52> Severity: moderate <Jamel Smalls MD - Last Filed: 11/26/21 13:52> Relieving factors: none <Jamel Smalls MD - Last Filed: 11/26/21 13:52> Associated symptoms: loss of appetite and other (nausea, vomiting and diarrhea) <Jamel Smalls MD - Last Filed: 11/26/21 13:52> Related Data Home medications: Home Medications Medication Instructions Recorded Confirmed aspirin 81 mg tablet,delayed 81 mg PO DAILY 11/26/21 11/26/21 release glipizide 10 mg tablet 1 tab PO BID 11/26/21 11/26/21 metformin 500 mg tablet 2 tab PO BID 11/26/21 11/26/21 metoprolol tartrate 50 mg tablet 50 mg PO BID 11/26/21 11/26/21 simvastatin 80 mg tablet 1 tab PO BEDTIME 11/26/21 11/26/21 <Jamel Smalls MD - Last Filed: 11/26/21 13:52> Allergies/Adverse reactions: Allergies Allergy/AdvReac Type Severity Reaction Status Date / Time No Known Allergies Allergy Verified 11/26/21 10:58 <Jamel Smalls MD - Last Filed: 11/26/21 13:52> Review of Systems Constitutional: Constitutional: Reports no additional constitutional complaints <Jamel Smalls MD - Last Filed: 11/26/21 13:52> Eyes: Eyes: Reports no additional eye complaints <Jamel Smalls MD - Last Filed: 11/26/21 13:52> ENT: Denies dizziness <Jamel Smalls MD - Last Filed: 11/26/21 13:52> Cardiovascular: Cardiovascular: Reports no additional cardiovascular complaints <Jamel Smalls MD - Last Filed: 11/26/21 13:52> Respiratory: Respiratory: Reports as per HPI <Jamel Smalls MD - Last Filed: 11/26/21 13:52> Gastrointestinal: Gastrointestinal: Reports no additional gastrointestinal complaints <Jamel Smalls MD - Last Filed: 11/26/21 13:52> Musculoskeletal: Musculoskeletal: Reports no additional musculoskeletal complaints <Jamel Smalls MD - Last Filed: 11/26/21 13:52> Integumentary/Breasts: Skin/Breast: Denies rash <Jamel Smalls MD - Last Filed: 11/26/21 13:52> Neurologic: Reports system reviewed and no additional complaints, except as documented, Denies dizziness and Denies Sensory deficit (Neuro) <Jamel Smalls MD - Last Filed: 11/26/21 13:52> Psychiatric: Psychiatric: Denies anxiety <Jamel Smalls MD - Last Filed: 11/26/21 13:52> PMFSH Past Medical History Medical History: Medical History Anemia CAD (coronary artery disease) Hyperlipidemia Hypertension Personal history of nicotine dependence Type 2 diabetes mellitus without complication <Jamel Smalls MD - Last Filed: 11/26/21 13:52> Surgical History: Surgical History History of heart artery stent History of implantable cardiac defibrillator (ICD) <Jamel Smalls MD - Last Filed: 11/26/21 13:52> Family History Family History: Family History Father ETOH abuse Mother DM2 (diabetes mellitus, type 2) Brother Ischemic heart disease <Jamel Smalls MD - Last Filed: 11/26/21 13:52> Social History Social History: Social History Patient Tobacco Use Status: Former Tobacco user Advance Directives: No Advance Directives Information Provided: Yes service: No Current occupational status: retired Current occupation: Retired - own an [employer] <Jamel Smalls MD - Last Filed: 11/26/21 13:52> Physical Exam Vital Signs: Vital Signs: Last Vital Signs Temp 97.4 F 11/27/21 05:11 Pulse 87 11/27/21 05:11 Resp 16 11/27/21 05:11 BP 119/57 L 11/27/21 05:11 Pulse Ox 90 L 11/27/21 05:11 O2 Del Method 11/27/21 05:11 BMI result Body Mass Index 18.5 <Jamel Smalls MD - Last Filed: 11/26/21 13:52> Vital Signs: Last Vital Signs Temp 97.4 F 11/27/21 05:11 Pulse 87 11/27/21 05:11 Resp 16 11/27/21 05:11 BP 119/57 L 11/27/21 05:11 Pulse Ox 90 L 11/27/21 05:11 O2 Del Method 11/27/21 05:11 BMI result Body Mass Index 18.5 <Sarah Coelho MD - Last Filed: 11/27/21 06:10> Const: Other: frail male, cachectic appearing weak <Jamel Smalls MD - Last Filed: 11/26/21 13:52> Nutritional Appearance: average body habitus <Jamel Smalls MD - Last Filed: 11/26/21 13:52> Orientation/consciousness: oriented to person <Jamel Smalls MD - Last Filed: 11/26/21 13:52> Limitations: no limitations <Jamel Smalls MD - Last Filed: 11/26/21 13:52> HEENT: Other: very dry oral mucosa <Jamel Smalls MD - Last Filed: 11/26/21 13:52> Ears: external ears normal <Jamel Smalls MD - Last Filed: 11/26/21 13:52> General nose exam: Normal external nose present <Jamel Smalls MD - Last Filed: 11/26/21 13:52> Mouth: Normal oral and palatal mucosa present and oropharynx normal <Jamel Smalls MD - Last Filed: 11/26/21 13:52> Throat: Yes posterior oropharynx normal <Jamel Smalls MD - Last Filed: 11/26/21 13:52> Eyes: General: appearance normal, both eyes and all related structures <Jamel Smalls MD - Last Filed: 11/26/21 13:52> Neck: Other: supple <Jamel Smalls MD - Last Filed: 11/26/21 13:52> Neck: Yes normal visual inspection <Jamel Smalls MD - Last Filed: 11/26/21 13:52> Chest: Chest palpation & inspection: normal inspection of the chest <Jamel Smalls MD - Last Filed: 11/26/21 13:52> Resp: Auscultation: clear to auscultation bilaterally <Jamel Smalls MD - Last Filed: 11/26/21 13:52> Cardio: Jugular venous distension: no JVD <Jamel Smalls MD - Last Filed: 11/26/21 13:52> Rate: regular rate <Jamel Smalls MD - Last Filed: 11/26/21 13:52> Rhythm: regular rhythm <Jamel Smalls MD - Last Filed: 11/26/21 13:52> Heart sounds: S1 normal heart sound present and S2 normal heart sound present <Jamel Smalls MD - Last Filed: 11/26/21 13:52> GI: Other: scaphoid abdomen, non tender <Jamel Smalls MD - Last Filed: 11/26/21 13:52> Palpation (GI): Soft to palpation, nontender and No hepatosplenomegaly present <Jamel Smalls MD - Last Filed: 11/26/21 13:52> Auscultation: normal bowel sounds <Jamel Smalls MD - Last Filed: 11/26/21 13:52> : General: Yes no CVA tenderness <Jamel Smalls MD - Last Filed: 11/26/21 13:52> Back/Spine/Pelvis: Back: no CVA tenderness <Jamel Smalls MD - Last Filed: 11/26/21 13:52> Skin: General skin exam: no rashes or lesions noted <Jamel Smalls MD - Last Filed: 11/26/21 13:52> Neuro: General: oriented to person <Jamel Smalls MD - Last Filed: 11/26/21 13:52> Cranial nerves: Yes CN's II-XII intact bilaterally <Jamel Smalls MD - Last Filed: 11/26/21 13:52> Motor exam (neuro): 5/5 motor strength present throughout <Jamel Smalls MD - Last Filed: 11/26/21 13:52> Sensory Exam: No Sensory deficit (Neuro) <Jamel Smalls MD - Last Filed: 11/26/21 13:52> Extrem: Other: 2+ edema bilaterally <Jamel Smalls MD - Last Filed: 11/26/21 13:52> Psych: Appearance: grossly normal <Jamel Smalls MD - Last Filed: 11/26/21 13:52> Course Course Course Narrative: 03:14 a Mr. Stephen got out of bed, seems that he was trying to get to the bathroom, got confused, and walk into another patient's room and fell. Seems that patient fell, it was unwitnessed, unclear if he hit his head. Patient had been conscious the whole time. He was helped up, back to his room. Head CT and neck CT are pending. Patient has no complaints. Dr. Phillip has been informed of the incident Head and cervical spine CT negative <Sarah Coelho MD - Last Filed: 11/27/21 06:10> Reevaluation(s) Reevaluation #1: Patient with right lung mass, new dehydration and renal failure, will start hydrating and admit <Jamel Smalls MD - Last Filed: 11/26/21 13:52> Time: 13:51 <Jamel Smalls MD - Last Filed: 11/26/21 13:52> MDM - Weakness Lab Data Result diagrams: : 11/26/21 12:43 11/26/21 12:43 <Jamel Smalls MD - Last Filed: 11/26/21 13:52> Labs: Lab Results 11/26/21 11/26/21 11/26/21 Range/Units 12:43 12:43 12:43 WBC 13.8 H (4.8-10.8) X10*3/uL RBC 4.36 L (4.60-5.80) X10*6/uL Hgb 14.2 (14.0-18.0) g/dl Hct 43.6 (42.0-52.0) % MCV 100.0 H (80.0-98.0) fL MCH 32.6 (27.0-33.0) pg MCHC 32.6 (31.0-36.0) g/dl RDW 13.1 (11.0-16.0) % Plt Count 222 D (160-400) X10*3/uL MPV 9.5 (9.4-12.4) fL Immature Gran % (Auto) 0.4 (0.0-0.4) % Neut % (Auto) 89.4 H (45-73) % Lymph % (Auto) 5.7 L (20-40) % [place] % (Auto) 4.1 (2-11) % Eos % (Auto) 0.1 (0-4) % Baso % (Auto) 0.3 (0-2) % Lymph # (Auto) 0.8 L (1.2-4.9) X10*3/uL [place] # (Auto) 0.6 (0.1-1.2) X10*3/uL Eos # (Auto) 0.0 (0.0-0.4) X10*3/uL Baso # (Auto) 0.0 (0.0-0.2) X10*3/uL Abs Immat Gran (auto) 0.05 H (0.00-0.03) X10*3/uL Absolute Neuts (auto) 12.3 H (2.0-8.3) x10*3/uL Absolute Nucleated RBC 0.000 (0.0-0.012) X10*3/uL Nucleated RBC % (auto) 0.0 (0.0-0.2) /100WBC Sodium 141 (135-145) mmol/L Potassium 5.3 H (3.3-5.1) mmol/L Chloride 106 (96-108) mmol/L Carbon Dioxide 23 (22-29) mmol/L Anion Gap 17 (12-20) BUN 61 H D (9-16) mg/dL Creatinine 2.15 H (0.5-1.4) mg/dL Estim Creat Clear Calc 20.0 Estimated GFR 30 POC Glucose (60-115) mg/dL Random Glucose 182 H (60-115) mg/dL Lactic Acid (0.5-2.0) mmol/L Calcium 8.6 (8.4-10.2) mg/dL Total Bilirubin 0.4 (0.0-1.0) mg/dL Direct Bilirubin 0.2 (0.0-0.5) mg/dL AST 41 H D (5-37) U/L ALT 34 (0-40) U/L Alkaline Phosphatase 80 (39-117) U/L Total Protein 5.7 L (6.5-8.0) g/dL Albumin 3.5 (3.5-5.0) g/dL Lipase 283 H (8-78) U/L TSH 1.83 (0.32-4.0) uIU/mL Urine Color Urine Appearance Urine pH (5.0-8.0) Ur Specific [place] (1.005-1.025) Urine Protein (NEG-TRACE) MG/DL Urine Glucose (UA) (NEG) MG/DL Urine Ketones (NEG) MG/DL Urine Blood (NEG) Urine Nitrite (NEG) Ur Leukocyte Esterase (NEG) Urine RBC (0) /HPF Urine WBC (0-4) /HPF Ur Squamous Epith Cells /LPF Ur Renal Epithelial Cell /LPF Triple Phos Crystals /LPF Amorphous Sediment /LPF Urine Bacteria /LPF Hyaline Casts /LPF Granular Casts /LPF Urine Mucus /LPF COVID-19 ([facility]) (Negative) COVID-19 Clin Com 11/26/21 11/26/21 11/26/21 Range/Units 12:43 13:56 14:12 WBC (4.8-10.8) X10*3/uL RBC (4.60-5.80) X10*6/uL Hgb (14.0-18.0) g/dl Hct (42.0-52.0) % MCV (80.0-98.0) fL MCH (27.0-33.0) pg MCHC (31.0-36.0) g/dl RDW (11.0-16.0) % Plt Count (160-400) X10*3/uL MPV (9.4-12.4) fL Immature Gran % (Auto) (0.0-0.4) % Neut % (Auto) (45-73) % Lymph % (Auto) (20-40) % [place] % (Auto) (2-11) % Eos % (Auto) (0-4) % Baso % (Auto) (0-2) % Lymph # (Auto) (1.2-4.9) X10*3/uL [place] # (Auto) (0.1-1.2) X10*3/uL Eos # (Auto) (0.0-0.4) X10*3/uL Baso # (Auto) (0.0-0.2) X10*3/uL Abs Immat Gran (auto) (0.00-0.03) X10*3/uL Absolute Neuts (auto) (2.0-8.3) x10*3/uL Absolute Nucleated RBC (0.0-0.012) X10*3/uL Nucleated RBC % (auto) (0.0-0.2) /100WBC Sodium (135-145) mmol/L Potassium (3.3-5.1) mmol/L Chloride (96-108) mmol/L Carbon Dioxide (22-29) mmol/L Anion Gap (12-20) BUN (9-16) mg/dL Creatinine (0.5-1.4) mg/dL Estim Creat Clear Calc Estimated GFR POC Glucose 104 (60-115) mg/dL Random Glucose (60-115) mg/dL Lactic Acid 1.8 (0.5-2.0) mmol/L Calcium (8.4-10.2) mg/dL Total Bilirubin (0.0-1.0) mg/dL Direct Bilirubin (0.0-0.5) mg/dL AST (5-37) U/L ALT (0-40) U/L Alkaline Phosphatase (39-117) U/L Total Protein (6.5-8.0) g/dL Albumin (3.5-5.0) g/dL Lipase (8-78) U/L TSH (0.32-4.0) uIU/mL Urine Color Urine Appearance Urine pH (5.0-8.0) Ur Specific [place] (1.005-1.025) Urine Protein (NEG-TRACE) MG/DL Urine Glucose (UA) (NEG) MG/DL Urine Ketones (NEG) MG/DL Urine Blood (NEG) Urine Nitrite (NEG) Ur Leukocyte Esterase (NEG) Urine RBC (0) /HPF Urine WBC (0-4) /HPF Ur Squamous Epith Cells /LPF Ur Renal Epithelial Cell /LPF Triple Phos Crystals /LPF Amorphous Sediment /LPF Urine Bacteria /LPF Hyaline Casts /LPF Granular Casts /LPF Urine Mucus /LPF COVID-19 ([facility]) Negative (Negative) COVID-19 Clin Com See Note 11/26/21 Range/Units 15:32 WBC (4.8-10.8) X10*3/uL RBC (4.60-5.80) X10*6/uL Hgb (14.0-18.0) g/dl Hct (42.0-52.0) % MCV (80.0-98.0) fL MCH (27.0-33.0) pg MCHC (31.0-36.0) g/dl RDW (11.0-16.0) % Plt Count (160-400) X10*3/uL MPV (9.4-12.4) fL Immature Gran % (Auto) (0.0-0.4) % Neut % (Auto) (45-73) % Lymph % (Auto) (20-40) % [place] % (Auto) (2-11) % Eos % (Auto) (0-4) % Baso % (Auto) (0-2) % Lymph # (Auto) (1.2-4.9) X10*3/uL [place] # (Auto) (0.1-1.2) X10*3/uL Eos # (Auto) (0.0-0.4) X10*3/uL Baso # (Auto) (0.0-0.2) X10*3/uL Abs Immat Gran (auto) (0.00-0.03) X10*3/uL Absolute Neuts (auto) (2.0-8.3) x10*3/uL Absolute Nucleated RBC (0.0-0.012) X10*3/uL Nucleated RBC % (auto) (0.0-0.2) /100WBC Sodium (135-145) mmol/L Potassium (3.3-5.1) mmol/L Chloride (96-108) mmol/L Carbon Dioxide (22-29) mmol/L Anion Gap (12-20) BUN (9-16) mg/dL Creatinine (0.5-1.4) mg/dL Estim Creat Clear Calc Estimated GFR POC Glucose (60-115) mg/dL Random Glucose (60-115) mg/dL Lactic Acid (0.5-2.0) mmol/L Calcium (8.4-10.2) mg/dL Total Bilirubin (0.0-1.0) mg/dL Direct Bilirubin (0.0-0.5) mg/dL AST (5-37) U/L ALT (0-40) U/L Alkaline Phosphatase (39-117) U/L Total Protein (6.5-8.0) g/dL Albumin (3.5-5.0) g/dL Lipase (8-78) U/L TSH (0.32-4.0) uIU/mL Urine Color YELLOW Urine Appearance HAZY Urine pH 5.5 (5.0-8.0) Ur Specific [place] >= 1.030 H (1.005-1.025) Urine Protein 1+ H (NEG-TRACE) MG/DL Urine Glucose (UA) NEG (NEG) MG/DL Urine Ketones 15 (NEG) MG/DL Urine Blood 3+ H (NEG) Urine Nitrite NEG (NEG) Ur Leukocyte Esterase TRACE H (NEG) Urine RBC 10-14 H (0) /HPF Urine WBC 5-9 H (0-4) /HPF Ur Squamous Epith Cells 1+ /LPF Ur Renal Epithelial Cell 3+ /LPF Triple Phos Crystals TRACE /LPF Amorphous Sediment 4+ /LPF Urine Bacteria TRACE /LPF Hyaline Casts 1-4 /LPF Granular Casts 5-9 /LPF Urine Mucus TRACE /LPF COVID-19 ([facility]) (Negative) COVID-19 Clin Com <Jamel Smalls MD - Last Filed: 11/26/21 13:52> Lab Results 11/26/21 11/26/21 11/26/21 Range/Units 12:43 12:43 12:43 WBC 13.8 H (4.8-10.8) X10*3/uL RBC 4.36 L (4.60-5.80) X10*6/uL Hgb 14.2 (14.0-18.0) g/dl Hct 43.6 (42.0-52.0) % MCV 100.0 H (80.0-98.0) fL MCH 32.6 (27.0-33.0) pg MCHC 32.6 (31.0-36.0) g/dl RDW 13.1 (11.0-16.0) % Plt Count 222 D (160-400) X10*3/uL MPV 9.5 (9.4-12.4) fL Immature Gran % (Auto) 0.4 (0.0-0.4) % Neut % (Auto) 89.4 H (45-73) % Lymph % (Auto) 5.7 L (20-40) % [place] % (Auto) 4.1 (2-11) % Eos % (Auto) 0.1 (0-4) % Baso % (Auto) 0.3 (0-2) % Lymph # (Auto) 0.8 L (1.2-4.9) X10*3/uL [place] # (Auto) 0.6 (0.1-1.2) X10*3/uL Eos # (Auto) 0.0 (0.0-0.4) X10*3/uL Baso # (Auto) 0.0 (0.0-0.2) X10*3/uL Abs Immat Gran (auto) 0.05 H (0.00-0.03) X10*3/uL Absolute Neuts (auto) 12.3 H (2.0-8.3) x10*3/uL Absolute Nucleated RBC 0.000 (0.0-0.012) X10*3/uL Nucleated RBC % (auto) 0.0 (0.0-0.2) /100WBC Sodium 141 (135-145) mmol/L Potassium 5.3 H (3.3-5.1) mmol/L Chloride 106 (96-108) mmol/L Carbon Dioxide 23 (22-29) mmol/L Anion Gap 17 (12-20) BUN 61 H D (9-16) mg/dL Creatinine 2.15 H (0.5-1.4) mg/dL Estim Creat Clear Calc 20.0 Estimated GFR 30 POC Glucose (60-115) mg/dL Random Glucose 182 H (60-115) mg/dL Lactic Acid (0.5-2.0) mmol/L Calcium 8.6 (8.4-10.2) mg/dL Total Bilirubin 0.4 (0.0-1.0) mg/dL Direct Bilirubin 0.2 (0.0-0.5) mg/dL AST 41 H D (5-37) U/L ALT 34 (0-40) U/L Alkaline Phosphatase 80 (39-117) U/L Total Protein 5.7 L (6.5-8.0) g/dL Albumin 3.5 (3.5-5.0) g/dL Lipase 283 H (8-78) U/L TSH 1.83 (0.32-4.0) uIU/mL Urine Color Urine Appearance Urine pH (5.0-8.0) Ur Specific [place] (1.005-1.025) Urine Protein (NEG-TRACE) MG/DL Urine Glucose (UA) (NEG) MG/DL Urine Ketones (NEG) MG/DL Urine Blood (NEG) Urine Nitrite (NEG) Ur Leukocyte Esterase (NEG) Urine RBC (0) /HPF Urine WBC (0-4) /HPF Ur Squamous Epith Cells /LPF Ur Renal Epithelial Cell /LPF Triple Phos Crystals /LPF Amorphous Sediment /LPF Urine Bacteria /LPF Hyaline Casts /LPF Granular Casts /LPF Urine Mucus /LPF COVID-19 ([facility]) (Negative) COVID-19 Clin Com 11/26/21 11/26/21 11/26/21 Range/Units 12:43 13:56 14:12 WBC (4.8-10.8) X10*3/uL RBC (4.60-5.80) X10*6/uL Hgb (14.0-18.0) g/dl Hct (42.0-52.0) % MCV (80.0-98.0) fL MCH (27.0-33.0) pg MCHC (31.0-36.0) g/dl RDW (11.0-16.0) % Plt Count (160-400) X10*3/uL MPV (9.4-12.4) fL Immature Gran % (Auto) (0.0-0.4) % Neut % (Auto) (45-73) % Lymph % (Auto) (20-40) % [place] % (Auto) (2-11) % Eos % (Auto) (0-4) % Baso % (Auto) (0-2) % Lymph # (Auto) (1.2-4.9) X10*3/uL [place] # (Auto) (0.1-1.2) X10*3/uL Eos # (Auto) (0.0-0.4) X10*3/uL Baso # (Auto) (0.0-0.2) X10*3/uL Abs Immat Gran (auto) (0.00-0.03) X10*3/uL Absolute Neuts (auto) (2.0-8.3) x10*3/uL Absolute Nucleated RBC (0.0-0.012) X10*3/uL Nucleated RBC % (auto) (0.0-0.2) /100WBC Sodium (135-145) mmol/L Potassium (3.3-5.1) mmol/L Chloride (96-108) mmol/L Carbon Dioxide (22-29) mmol/L Anion Gap (12-20) BUN (9-16) mg/dL Creatinine (0.5-1.4) mg/dL Estim Creat Clear Calc Estimated GFR POC Glucose 104 (60-115) mg/dL Random Glucose (60-115) mg/dL Lactic Acid 1.8 (0.5-2.0) mmol/L Calcium (8.4-10.2) mg/dL Total Bilirubin (0.0-1.0) mg/dL Direct Bilirubin (0.0-0.5) mg/dL AST (5-37) U/L ALT (0-40) U/L Alkaline Phosphatase (39-117) U/L Total Protein (6.5-8.0) g/dL Albumin (3.5-5.0) g/dL Lipase (8-78) U/L TSH (0.32-4.0) uIU/mL Urine Color Urine Appearance Urine pH (5.0-8.0) Ur Specific [place] (1.005-1.025) Urine Protein (NEG-TRACE) MG/DL Urine Glucose (UA) (NEG) MG/DL Urine Ketones (NEG) MG/DL Urine Blood (NEG) Urine Nitrite (NEG) Ur Leukocyte Esterase (NEG) Urine RBC (0) /HPF Urine WBC (0-4) /HPF Ur Squamous Epith Cells /LPF Ur Renal Epithelial Cell /LPF Triple Phos Crystals /LPF Amorphous Sediment /LPF Urine Bacteria /LPF Hyaline Casts /LPF Granular Casts /LPF Urine Mucus /LPF COVID-19 ([facility]) Negative (Negative) COVID-19 Clin Com See Note 11/26/21 Range/Units 15:32 WBC (4.8-10.8) X10*3/uL RBC (4.60-5.80) X10*6/uL Hgb (14.0-18.0) g/dl Hct (42.0-52.0) % MCV (80.0-98.0) fL MCH (27.0-33.0) pg MCHC (31.0-36.0) g/dl RDW (11.0-16.0) % Plt Count (160-400) X10*3/uL MPV (9.4-12.4) fL Immature Gran % (Auto) (0.0-0.4) % Neut % (Auto) (45-73) % Lymph % (Auto) (20-40) % [place] % (Auto) (2-11) % Eos % (Auto) (0-4) % Baso % (Auto) (0-2) % Lymph # (Auto) (1.2-4.9) X10*3/uL [place] # (Auto) (0.1-1.2) X10*3/uL Eos # (Auto) (0.0-0.4) X10*3/uL Baso # (Auto) (0.0-0.2) X10*3/uL Abs Immat Gran (auto) (0.00-0.03) X10*3/uL Absolute Neuts (auto) (2.0-8.3) x10*3/uL Absolute Nucleated RBC (0.0-0.012) X10*3/uL Nucleated RBC % (auto) (0.0-0.2) /100WBC Sodium (135-145) mmol/L Potassium (3.3-5.1) mmol/L Chloride (96-108) mmol/L Carbon Dioxide (22-29) mmol/L Anion Gap (12-20) BUN (9-16) mg/dL Creatinine (0.5-1.4) mg/dL Estim Creat Clear Calc Estimated GFR POC Glucose (60-115) mg/dL Random Glucose (60-115) mg/dL Lactic Acid (0.5-2.0) mmol/L Calcium (8.4-10.2) mg/dL Total Bilirubin (0.0-1.0) mg/dL Direct Bilirubin (0.0-0.5) mg/dL AST (5-37) U/L ALT (0-40) U/L Alkaline Phosphatase (39-117) U/L Total Protein (6.5-8.0) g/dL Albumin (3.5-5.0) g/dL Lipase (8-78) U/L TSH (0.32-4.0) uIU/mL Urine Color YELLOW Urine Appearance HAZY Urine pH 5.5 (5.0-8.0) Ur Specific [place] >= 1.030 H (1.005-1.025) Urine Protein 1+ H (NEG-TRACE) MG/DL Urine Glucose (UA) NEG (NEG) MG/DL Urine Ketones 15 (NEG) MG/DL Urine Blood 3+ H (NEG) Urine Nitrite NEG (NEG) Ur Leukocyte Esterase TRACE H (NEG) Urine RBC 10-14 H (0) /HPF Urine WBC 5-9 H (0-4) /HPF Ur Squamous Epith Cells 1+ /LPF Ur Renal Epithelial Cell 3+ /LPF Triple Phos Crystals TRACE /LPF Amorphous Sediment 4+ /LPF Urine Bacteria TRACE /LPF Hyaline Casts 1-4 /LPF Granular Casts 5-9 /LPF Urine Mucus TRACE /LPF COVID-19 (HUGO) (Negative) COVID-19 Clin Com <Sarah Coelho MD - Last Filed: 11/27/21 06:10> Imaging Data Chest x-ray: My impression: Mass in the right lung <Jamel Smalls MD - Last Filed: 11/26/21 13:52> Head and cervical spine CT: Radiologist's impression: Head: There is no evidence of acute intracranial hemorrhage or territorial infarction. No abnormal mass effect or midline shift is seen. Sheppard to white matter differentiation is well preserved. No extra-axial fluid collections are identified. No hydrocephalus. Proportional prominence of the ventricles and sulcal spaces is consistent with moderate volume loss. Patchy periventricular and deep white matter hypoattenuation is consistent with moderate small vessel ischemic changes. No acute osseous or soft tissue abnormality. The mastoid air cells and visualized portions of the paranasal sinuses are well aerated. Cervical spine: There is anatomic alignment of the vertebral bodies and posterior elements. The atlantoaxial and atlantooccipital articulations are intact. Vertebral body heights are maintained. There is multilevel intervertebral disc space narrowing with endplate osteophyte formation and facet arthropathy. No evidence of acute fracture. No prevertebral soft tissue swelling. Visualized portions of the lung apices are unremarkable. The thyroid gland is unremarkable. CT/CT head/brain wo con IMPRESSION: No acute intracranial finding. ? No acute fracture or malalignment of the cervical spine. Moderate degenerative change. <Sarah Coelho MD - Last Filed: 11/27/21 06:10> Discharge Plan Discharge Clinical Impression: Right lower lobe lung mass, Dehydration, Acute kidney failure <Jamel Smalls MD - Last Filed: 11/26/21 13:52> Patient Disposition: Admitted As Inpatient <Jamel Smalls MD - Last Filed: 11/26/21 13:52>
[2021-11-26] MEDS: 0.9 % Sodium Chloride 1,000 ML 999 ML IVCONT ×2 (12:20→14:40)
[2021-11-26 12:48] LABS: MANUAL DIFF FLAG NO
[2021-11-26 12:50] LABS: Basophils Percent Auto 0.3 % (0-2); Eosinophils Percent Auto 0.1 % (0-4); Hematocrit 43.6 % (42.0-52.0); Hemoglobin 14.2 g/dl (14.0-18.0); Imm Gran Abs Auto 0.05 X10*3/uL (0.00-0.03); Imm Gran Pct Auto 0.4 % (0.0-0.4); Lymphocytes Absolute Auto 0.8 X10*3/uL (1.2-4.9); Lymphocytes Percent Auto 5.7 % (20-40); Mean Corpuscular HGB Conc 32.6 g/dl (31.0-36.0); Mean Corpuscular Hemoglobin 32.6 pg (27.0-33.0); Mean Platelet Volume 9.5 fL (9.4-12.4); Monocytes Absolute Auto 0.6 X10*3/uL (0.1-1.2); Monocytes Percent Auto 4.1 % (2-11); Neutrophils Absolute Auto 12.3 x10*3/uL (2.0-8.3); Neutrophils Percent Auto 89.4 % (45-73); Platelet Count 222 X10*3/uL (160-400); Red Blood Count 4.36 X10*6/uL (4.60-5.80); Red Cell Distribution Width 13.1 % (11.0-16.0); White Blood Count 13.8 X10*3/uL (4.8-10.8)
[2021-11-26 12:55] VITALS: BP 138/74; PULSE 54; RESP 19; TEMP 36.6
[2021-11-26 13:00] LABS: Lactic Acid 1.8 mmol/L (0.5-2.0)
[2021-11-26 13:09] LABS: Alanine Aminotransferase 34 U/L (0-40); Albumin Level 3.5 g/dL (3.5-5.0); Alkaline Phosphatase 80 U/L (39-117); Anion Gap 17 (12-20); Aspartate Amino Transferase 41 U/L (5-37); Bilirubin Direct 0.2 mg/dL (0.0-0.5); Bilirubin Total 0.4 mg/dL (0.0-1.0); Blood Urea Nitrogen 61 mg/dL (9-16); Calcium 8.6 mg/dL (8.4-10.2); Carbon Dioxide 23 mmol/L (22-29); Chloride 106 mmol/L (96-108); Estimated Glomerular Filt Rate 30; Glucose Random 182 mg/dL (60-115); Lipase 283 U/L (8-78); Potassium 5.3 mmol/L (3.3-5.1); Sodium 141 mmol/L (135-145); Total Protein 5.7 g/dL (6.5-8.0)
[2021-11-26 13:29] LABS: TSH reflex Free T4 1.83 uIU/mL (0.32-4.0)
[2021-11-26 14:17] LABS: Glucose, Whole Blood 104 mg/dL (60-115)
[2021-11-26 14:21] LABS: COVID-19 Test Negative (Negative); IDNOW Serial# 16C4AD1C
--- NOTE | 2021-11-26 14:54 | PC.NURSE ---
pt sitting up eating in bed. reports feeling much better. family at bedside aware of plan of care for admission.
[2021-11-26 15:30] VITALS: BP 113/45; PULSE 56; RESP 18; O2SAT 100
[2021-11-26 15:40] LABS: Appearance Urine HAZY; Color Urine YELLOW; Glucose Urine UA NEG (NEG); Leukocyte Esterase Urine TRACE (NEG); Nitrite Urine NEG (NEG); PH 5.5 (5.0-8.0); Specific Gravity - Urine >= 1.030 (1.005-1.025); UACC Culture Trigger NO; Urine Blood 3+ (NEG); Urine Ketones 15 MG/DL (NEG); Urine Protein 1+ MG/DL (NEG-TRACE)
--- NOTE | 2021-11-26 15:40 | PHA.MEDREC ---
Pharmacy Consult ? Medication Reconciliation Pharmacy has completed the medication reconciliation.
[2021-11-26 16:00] LABS: Amorphous Sediment Urine 4+ /LPF; Bacteria Urine TRACE /LPF; Mucus Urine TRACE /LPF; Renal Epithelial Cells Urine 3+ /LPF; Squamous Epithelial Cell Urine 1+ /LPF; Triple Phosphate Crystal Urine TRACE /LPF; UACC CULT YES
[2021-11-26] MEDS: Heparin Sodium,Porcine 5,000 UNIT/ML VIAL 5000 UNIT SUBCUT (16:30)
--- NOTE | 2021-11-26 22:17 | MHC.CM.PN ---
CM met with admitted patient with bed assignment pending. IMM 11/26. Lives alone. Drives. A&Ox3. No DME/services. Vax x2/boosted. Cannot remember director diversity. HCP at home with will. Pt declines completing one for [facility] [place] HCP/daughter Ailyn Cha ([phone]), lives in [facility]. Pt states daughter is here visiting for a few days. Pt thinks he may need more help at home. Unsure if he is strong enough to go home. Pt agreeable to [facility] if needed. Also agreeable to [facility] if needed. Wants to see how he feels with care in the hospital. D/C plan: unsure at this time. No referrals placed. Pt states his daughter can bring him home if only stays for a day or two. Pt has no local family. CM to follow for d/c needs.
[2021-11-27] VITALS (7 sets, daily range): BP systolic 119–146; BP diastolic 57–73; PULSE 57–88; RESP 14–18; TEMP 36.3–36.7; O2SAT 90–99
[2021-11-27] MEDS: 0.9 % Sodium Chloride Flush 3 ML SYRINGE IVFLUSH ×2 (00:58→16:12)
[2021-11-27] MEDS: Heparin Sodium,Porcine 5,000 UNIT/ML VIAL 5000 UNIT SUBCUT ×2 (03:10→13:57)
--- NOTE | 2021-11-27 03:20 | PC.NURSE ---
Around this time pt was found to have wandered out of his bed and walked into Rm 7 in the ER thinking it was a bathroom and then falling on the floor. Another pt was in room 7 and heard the fall and then came out and told staff. Romero RN and Ed RN went to attend to pt, no obvious injuries were noted, pt was then helped to the bathroom to finish his bowel movement. Pt was cleaned and changed into a fresh gown. Pt will get precautionary CTs of cervical spine and head per Dr. Coelho. Pt is now back in room 6 resting comfortably. Aviva MONSIVAISrn discharge nurse went to get a tele-sitter camera for the pt room due to inadequate staffing tonight.
--- NOTE | 2021-11-27 07:50 | PM.IMHP ---
History of Present Illness Date of Service: 11/26/21 Chief Complaint: weakness, wait loss 81 year male with Diabetes controlled with Metformin and Glipizide, h/o CAD with no agnia symptoms, s/p pace maker for history of bradycardia, HLD on statin. In october was diagnosed with a 2.2 x 3 cm mass/nodule in the superior segment of theright lower lobe of th lung by CT and subsequent PET scan showed no metastic activity. He is was planned to see thoracic surgery ( Dr. Aguilar) on 11/28/21, nm oncologist is Dr. Cespedes. He presents on this occasion with weakness, fatigue, poor apette, decrease oral for 2 to 3 weeks, and has lost about 30 Ib onver the last 3 months, in fact he has not felt well since May. He smoked for nearly 52 years. He is found to have MAYELA and started on intravenous fluid and is bein admitted. Review of Systems Review of Systems: Gen: no fever, poor apetite Resp: no sob, no cough CV: no chest, no TOLBERT, no leg edema GI: No n/v, no abd pain Neuro: No confusion Yes all other systems are reviewed and are negative [facility] Medical History (Updated 11/27/21 @ 13:28 by Amairani Land PA-C) Anemia CAD (coronary artery disease) Hyperlipidemia Hypertension Personal history of nicotine dependence Type 2 diabetes mellitus without complication Family History Father ETOH abuse Mother DM2 (diabetes mellitus, type 2) Brother Ischemic heart disease Surgical History (Updated 11/27/21 @ 13:22 by Amairani Land PA-C) History of heart artery stent History of implantable cardiac defibrillator (ICD) Social History Patient Tobacco Use Status: Former Tobacco user Advance Directives: No Advance Directives Information Provided: Yes service: No Current occupational status: retired Current occupation: Retired - own an [employer] Allergies Allergy/AdvReac Type Severity Reaction Status Date / Time No Known Allergies Allergy Verified 11/26/21 10:58 Active Medications: Current Medications Al Hydroxide/Mg Hydroxide (Magnesium Hydrox/Alum Hydrox 30 Ml Oral.Susp) 30 ml PO Q4H PRN PRN Reason: Heartburn/Nausea Heparin Sodium (Porcine) (Heparin Sodium,Porcine 5,000 Unit/Ml Vial) 5,000 unit SUBCUT Q12H [facility] Last Admin: 11/27/21 03:10 Dose: 5,000 unit Melatonin (Melatonin 3 Mg Tablet) 6 mg PO BEDTIME PRN PRN Reason: Insomnia Pharmacy Consult (Consult Rx Perform Med Rec) 1 each MISCELLANE ONCE PRN PRN Reason: Consult order Sodium Chloride (0.9 % Sodium Chloride Flush 3 Ml Syringe) 3 ml IVFLUSH QSHIFT [facility] Last Admin: 11/27/21 00:58 Dose: 3 ml Home Medications Medication Instructions Recorded Confirmed Last Taken Type aspirin 81 mg tablet,delayed 81 mg PO DAILY 11/26/21 11/26/21 11/26/21 History release glipizide 10 mg tablet 1 tab PO BID 11/26/21 11/26/21 11/26/21 History metformin 500 mg tablet 2 tab PO BID 11/26/21 11/26/21 11/26/21 History metoprolol tartrate 50 mg tablet 50 mg PO BID 11/26/21 11/26/21 11/26/21 History simvastatin 80 mg tablet 1 tab PO BEDTIME 11/26/21 11/26/21 11/25/21 History Physical Exam Vital Signs and Narrative: Vital Signs: Last Vital Signs Temp 97.4 F 11/27/21 05:11 Pulse 87 11/27/21 05:11 Resp 16 11/27/21 05:11 BP 119/57 L 11/27/21 05:11 Pulse Ox 90 L 11/27/21 05:11 O2 Del Method 11/27/21 05:11 BMI result Body Mass Index 18.5 Const: Other: Constitutional: Alert, in no distress, underweight. Mental Status: Oriented to person, place and time. Eyes: Pupils are equal, round and reactive to light. Ear, Nose and Throat: Oropharynx clear, mucous membranes moist. missing some front teeth Respiratory: Clear to auscultation. No wheezing, rales or rhonchi. Cardiovascular: S1 S2 regular. No murmurs, rubs or gallops. Gastrointestinal: Abdomen soft, non-tender, non-distended. Normal bowel sounds.? Neurologic: Cranial nerves II-XII grossly intact. No focal neurological deficits. Moves all extremities spontaneously.? Skin: No rashes or lesions.? Musculoskeletal: No cyanosis or clubbing. Psychiatric: Normal mood and affect? Results Labs CBC and Chem 7: 11/26/21 12:43 11/27/21 10:47 Labs: Laboratory Results - last 24 hr 11/26/21 11/26/21 11/26/21 12:43 12:43 12:43 MCV 100.0 H MCH 32.6 MCHC 32.6 RDW 13.1 Plt Count 222 D MPV 9.5 Immature Gran % (Auto) 0.4 Neut % (Auto) 89.4 H Lymph % (Auto) 5.7 L [place] % (Auto) 4.1 Eos % (Auto) 0.1 Baso % (Auto) 0.3 Lymph # (Auto) 0.8 L [place] # (Auto) 0.6 Eos # (Auto) 0.0 Baso # (Auto) 0.0 Abs Immat Gran (auto) 0.05 H Absolute Neuts (auto) 12.3 H Absolute Nucleated RBC 0.000 Nucleated RBC % (auto) 0.0 Anion Gap 17 Estim Creat Clear Calc 20.0 Estimated GFR 30 POC Glucose Random Glucose 182 H Lactic Acid Calcium 8.6 Total Bilirubin 0.4 Direct Bilirubin 0.2 AST 41 H D ALT 34 Alkaline Phosphatase 80 Total Protein 5.7 L Albumin 3.5 Lipase 283 H TSH 1.83 Urine Color Urine Appearance Urine pH Ur Specific [place] Urine Protein Urine Glucose (UA) Urine Ketones Urine Blood Urine Nitrite Ur Leukocyte Esterase Urine RBC Urine WBC Ur Squamous Epith Cells Ur Renal Epithelial Cell Triple Phos Crystals Amorphous Sediment Urine Bacteria Hyaline Casts Granular Casts Urine Mucus COVID-19 ([facility]) COVID-19 Clin Com 11/26/21 11/26/21 11/26/21 12:43 13:56 14:12 MCV MCH MCHC RDW Plt Count MPV Immature Gran % (Auto) Neut % (Auto) Lymph % (Auto) [place] % (Auto) Eos % (Auto) Baso % (Auto) Lymph # (Auto) [place] # (Auto) Eos # (Auto) Baso # (Auto) Abs Immat Gran (auto) Absolute Neuts (auto) Absolute Nucleated RBC Nucleated RBC % (auto) Anion Gap Estim Creat Clear Calc Estimated GFR POC Glucose 104 Random Glucose Lactic Acid 1.8 Calcium Total Bilirubin Direct Bilirubin AST ALT Alkaline Phosphatase Total Protein Albumin Lipase TSH Urine Color Urine Appearance Urine pH Ur Specific [place] Urine Protein Urine Glucose (UA) Urine Ketones Urine Blood Urine Nitrite Ur Leukocyte Esterase Urine RBC Urine WBC Ur Squamous Epith Cells Ur Renal Epithelial Cell Triple Phos Crystals Amorphous Sediment Urine Bacteria Hyaline Casts Granular Casts Urine Mucus COVID-19 ([facility]) Negative COVID-19 Clin Com See Note 11/26/21 15:32 MCV MCH MCHC RDW Plt Count MPV Immature Gran % (Auto) Neut % (Auto) Lymph % (Auto) [place] % (Auto) Eos % (Auto) Baso % (Auto) Lymph # (Auto) [place] # (Auto) Eos # (Auto) Baso # (Auto) Abs Immat Gran (auto) Absolute Neuts (auto) Absolute Nucleated RBC Nucleated RBC % (auto) Anion Gap Estim Creat Clear Calc Estimated GFR POC Glucose Random Glucose Lactic Acid Calcium Total Bilirubin Direct Bilirubin AST ALT Alkaline Phosphatase Total Protein Albumin Lipase TSH Urine Color YELLOW Urine Appearance HAZY Urine pH 5.5 Ur Specific [place] >= 1.030 H Urine Protein 1+ H Urine Glucose (UA) NEG Urine Ketones 15 Urine Blood 3+ H Urine Nitrite NEG Ur Leukocyte Esterase TRACE H Urine RBC 10-14 H Urine WBC 5-9 H Ur Squamous Epith Cells 1+ Ur Renal Epithelial Cell 3+ Triple Phos Crystals TRACE Amorphous Sediment 4+ Urine Bacteria TRACE Hyaline Casts 1-4 Granular Casts 5-9 Urine Mucus TRACE COVID-19 ([facility]) COVID-19 Clin Com Imaging Radiologist's Impressions: Impressions Chest X-Ray 11/26/21 12:23 FINDINGS/IMPRESSION: Bilateral lung masses are again visualized, better appreciated on recent prior CT scan. There is no acute radiographic finding. No infiltrate, effusion, or pneumothorax is seen. The heart appears normal in size. The tip of a left subclavian pulse generator device lead projects over the right ventricle. The aorta is mildly atherosclerotic. The right hemidiaphragm is mildly elevated, unchanged. The mediastinum, bones and soft tissues appear unremarkable. Cervical Spine CT 11/27/21 04:50 IMPRESSION: No acute intracranial finding. No acute fracture or malalignment of the cervical spine. Moderate degenerative change. Head CT 11/27/21 04:50 IMPRESSION: No acute intracranial finding. No acute fracture or malalignment of the cervical spine. Moderate degenerative change. Assessment and Plan (1) Right lower lobe lung mass: Status: Acute (2) Pulmonary nodules: Status: Acute (3) Dehydration: Status: Acute (4) Acute kidney failure: Status: Acute Plan 81 with increaseing weakness, weight loss in setting of lung mass, MAYELA MAYELA--pre renal state -IVF and reassess and if not improving then nephro consult Weaknesss--liekly from dehydration, malignancy Lung mass likely malignant -was planned to see CT surgery tomorrow -discuss with Dr. Cespedes his oncologist Moderate protein caloy malnutrition -likely related to neoplasm -Nutriotion eval CAD--stable -continue metoprolol, ASA, Lipitor HLP--Lipitor diabetes--Hold metformin d/t renal failure, hold glipizide HTN--Metoprolol DVT prophylaxis: Heparin DNR/DNI--discussed with patienet and HCP (daughter Crow) Admission to span at least 2 midnight for IVF to restore kidney funtion, not taking in adequate oral hydration Quality Stroke Does the patient have a stroke diagnosis?: No VTE Prior VTE?: No VTE Risk Level:: Medical - moderate - high VTE Device Contraindication: N/A - Device Ordered VTE Drug Contraindication: N/A - Med Ordered
[2021-11-27 11:12] LABS: Anion Gap 16 (12-20); Blood Urea Nitrogen 52 mg/dL (9-16); Carbon Dioxide 22 mmol/L (22-29); Chloride 108 mmol/L (96-108); Creatinine Clr Calc Pharmacy 23.7; Estimated Glomerular Filt Rate 36; Glucose Random 189 mg/dL (60-115); Potassium 4.8 mmol/L (3.3-5.1); Sodium 141 mmol/L (135-145)
[2021-11-27 11:34] LABS: Glucose, Whole Blood 101 mg/dL (60-115)
--- NOTE | 2021-11-27 12:47 | PM.HEMONCCN ---
Subjective - Subjective Chief complaint: lung tumor Patient: known to practice within the last 3 years Consult date: 11/27/21 Primary Care Provider: Vernon Guido MD HPI - Consult Narrative Narrative: Kendall Stephen is a 81 year old male admitted yesterday for dehydration. 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 Review of Systems - Eyes Reports blurry vision - ENT Reports system reviewed and no additional complaints, except as documented - Cardiovascular Reports fast heart rate - Respiratory Reports change in phlegm color, Reports cough - Gastrointestinal Reports dyspepsia - Genitourinary Genitourinary: Reports urinary urgency - Musculoskeletal Reports decreased muscle mass - Neurologic Reports system reviewed and no additional complaints, except as documented, Reports weakness, Denies sensory deficit [facility] Medical History: Medical History (Last Reviewed 11/27/21 @ 07:50 by Rakan Salmeron MD) Anemia CAD (coronary artery disease) Hyperlipidemia Hypertension Personal history of nicotine dependence Type 2 diabetes mellitus without complication Family History: Family History (Last Reviewed 11/27/21 @ 07:50 by Rakan Salmeron MD) Father ETOH abuse Mother DM2 (diabetes mellitus, type 2) Brother Ischemic heart disease Surgical History: Surgical History (Last Reviewed 11/27/21 @ 07:50 by Rakan Salmeron MD) History of heart artery stent History of implantable cardiac defibrillator (ICD) Social History: Social History (Last Reviewed 11/27/21 @ 07:50 by Rakan Salmeron MD) Tobacco History: Patient Tobacco Use Status: Former Tobacco user Advance Directives: Advance Directives: No Advance Directives Information Provided: Yes Occupation Assessmet: service: No Current occupational status: retired 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 Home Medications and Allergies Current Medications: Current Medications Al Hydroxide/Mg Hydroxide (Magnesium Hydrox/Alum Hydrox 30 Ml Oral.Susp) 30 ml PO Q4H PRN PRN Reason: Heartburn/Nausea Aspirin (Aspirin Enteric Coated 81 Mg Tablet.) 81 mg PO DAILY [facility] Atorvastatin Calcium (Atorvastatin Calcium 40 Mg Tablet) 40 mg PO BEDTIME [facility] Heparin Sodium (Porcine) (Heparin Sodium,Porcine 5,000 Unit/Ml Vial) 5,000 unit SUBCUT Q12H [facility] Last Admin: 11/27/21 03:10 Dose: 5,000 unit Lactated Ringer's (Lr) 1,000 mls @ 100 mls/hr IVCONT .Q10H [facility] Insulin Human Lispro (Insulin Lispro 100 Unit/Ml 3 Ml Vial) 0 unit SUBCUT QIDACHS [facility]; Protocol Melatonin (Melatonin 3 Mg Tablet) 6 mg PO BEDTIME PRN PRN Reason: Insomnia Metoprolol Tartrate (Metoprolol Tartrate 50 Mg Tablet) 50 mg PO BID [facility]; Protocol Pharmacy Consult (Consult Rx Perform Med Rec) 1 each MISCELLANE ONCE PRN PRN Reason: Consult order Sodium Chloride (0.9 % Sodium Chloride Flush 3 Ml Syringe) 3 ml IVFLUSH QSHIFT [facility] Last Admin: 11/27/21 00:58 Dose: 3 ml Home Medications Medication Instructions Recorded Confirmed Type aspirin 81 mg tablet,delayed 81 mg PO DAILY 11/26/21 11/26/21 History release glipizide 10 mg tablet 1 tab PO BID 11/26/21 11/26/21 History metformin 500 mg tablet 2 tab PO BID 11/26/21 11/26/21 History metoprolol tartrate 50 mg tablet 50 mg PO BID 11/26/21 11/26/21 History simvastatin 80 mg tablet 1 tab PO BEDTIME 11/26/21 11/26/21 History Allergies Allergy/AdvReac Type Severity Reaction Status Date / Time No Known Allergies Allergy Verified 11/26/21 10:58 Physical Exam Vital signs: Vital Signs Temp 97.6 F 11/27/21 09:43 Pulse 60 11/27/21 09:43 Resp 14 11/27/21 09:43 BP 143/69 H 11/27/21 09:43 Pulse Ox 97 11/27/21 09:43 O2 Del Method 11/27/21 09:43 Intake & Output 11/26/21 11/27/21 11/27/21 18:59 06:59 18:59 Intake Total 1000 / 1000 Balance 1000 / 1000 Intake: Intake, IV Amount 1000 / 1000 0.9 % Sodium Chloride 1,000 ml 1000 / 1000 @ 999 mls/hr IVCONT .Q1H1M [facility] Rx#:[id number] Other: Weight 53.6 kg Weight 53.6 kg - Constitutional Present: no acute distress, somnolent - Routine HEENT Exam Head: Present: atraumatic - Routine Neck Exam Present: supple - Routine Respiratory Exam Present: decreased breath sounds - Routine Cardiovascular Exam Cardiovascular: Present: RRR - Routine Abdominal Exam Present: diminished bowel sounds - Routine Extremities Exam Present: nontender - Routine Neurological Exam Present: oriented X3, altered mental status Hem/Onc Consult Result - Labs CBC & Chem 7: 11/26/21 12:43 11/27/21 10:47 Labs: Short CBC 11/26/21 Range/Units 12:43 WBC 13.8 H (4.8-10.8) X10*3/uL Hgb 14.2 (14.0-18.0) g/dl Hct 43.6 (42.0-52.0) % Plt Count 222 D (160-400) X10*3/uL BMP 11/26/21 11/27/21 12:43 10:47 Sodium 141 141 Potassium 5.3 H 4.8 Chloride 106 108 Carbon Dioxide 23 22 BUN 61 H D 52 H Creatinine 2.15 H 1.82 H Calcium 8.6 8.0 L D Liver Function 11/26/21 Range/Units 12:43 Total Bilirubin 0.4 (0.0-1.0) mg/dL Direct Bilirubin 0.2 (0.0-0.5) mg/dL AST 41 H D (5-37) U/L ALT 34 (0-40) U/L Alkaline Phosphatase 80 (39-117) U/L Albumin 3.5 (3.5-5.0) g/dL Urine 11/26/21 Range/Units 15:32 Urine Color YELLOW Urine Appearance HAZY Urine pH 5.5 (5.0-8.0) Ur Specific [place] >= 1.030 H (1.005-1.025) Urine Protein 1+ H (NEG-TRACE) MG/DL Urine Glucose (UA) NEG (NEG) MG/DL Assessment and Plan Patient Active problem list reviewed?: Yes (1) Pulmonary nodules Status: Acute Assessment and plan: He has one significant nodule which is pet positive. Suggest PFTs and thoracic surgery consultation. - Time Spent With Patient Time Spent with Patient (in minutes): 20
[2021-11-27] MEDS: Insulin Lispro 100 UNIT/ML 3 ML VIAL SUBCUT ×3 (13:57→20:22)
[2021-11-27] MEDS: Lactated Ringers 1,000 ML 100 ML IVCONT (14:01)
--- NOTE | 2021-11-27 14:08 | P.PNIM_ITS ---
Subjective Subjective Date of Service: 11/27/21 Interval History: f/u on mayela, failure to thrive, lung mass interval history:Stiil feels weak, Cr is better Review of Systems weakness, no sob, no feve Physical Exam Vital Signs: Vital Signs: Last Vital Signs Temp 97.6 F 11/27/21 09:43 Pulse 60 11/27/21 09:43 Resp 14 11/27/21 09:43 BP 143/69 H 11/27/21 09:43 Pulse Ox 97 11/27/21 09:43 O2 Del Method 11/27/21 09:43 BMI result Body Mass Index 18.5 Const: Other: General: AO X 3, no acute distress, cachectic Resp: CTA bilateral CVS: S1,S2,RRR GI: +BS, NT, no distention Skin: No rash Neuro: motor grossly intact Psych: appropriate affect Objective Data Active Medications Al Hydroxide/Mg Hydroxide (Magnesium Hydrox/Alum Hydrox 30 Ml Oral.Susp) 30 ml PO Q4H PRN PRN Reason: Heartburn/Nausea Aspirin (Aspirin Enteric Coated 81 Mg Tablet.) 81 mg PO DAILY [facility] Atorvastatin Calcium (Atorvastatin Calcium 40 Mg Tablet) 40 mg PO BEDTIME [facility] Heparin Sodium (Porcine) (Heparin Sodium,Porcine 5,000 Unit/Ml Vial) 5,000 unit SUBCUT Q12H [facility] Last Admin: 11/27/21 13:57 Dose: 5,000 unit Documented By: NORA Lactated Ringer's (Lr) 1,000 mls @ 100 mls/hr IVCONT .Q10H [facility] Last Admin: 11/27/21 14:01 Dose: 100 mls/hr Documented By: NORA Insulin Human Lispro (Insulin Lispro 100 Unit/Ml 3 Ml Vial) 0 unit SUBCUT QIDACHS [facility]; Protocol Last Admin: 11/27/21 13:57 Dose: 2 unit Documented By: NORA Melatonin (Melatonin 3 Mg Tablet) 6 mg PO BEDTIME PRN PRN Reason: Insomnia Metoprolol Tartrate (Metoprolol Tartrate 50 Mg Tablet) 50 mg PO BID [facility]; Protocol Pharmacy Consult (Consult Rx Perform Med Rec) 1 each MISCELLANE ONCE PRN PRN Reason: Consult order Sodium Chloride (0.9 % Sodium Chloride Flush 3 Ml Syringe) 3 ml IVFLUSH QSHIFT [facility] Last Admin: 11/27/21 13:58 Dose: Not Given Documented By: NORA Non-Admin Reason: IV Running Labs CBC & Chem 7: 11/26/21 12:43 11/27/21 10:47 Labs: Laboratory Results - last 24 hr 11/26/21 11/26/21 11/26/21 13:56 14:12 15:32 Anion Gap Estim Creat Clear Calc Estimated GFR POC Glucose 104 Random Glucose Calcium Urine Color YELLOW Urine Appearance HAZY Urine pH 5.5 Ur Specific [place] >= 1.030 H Urine Protein 1+ H Urine Glucose (UA) NEG Urine Ketones 15 Urine Blood 3+ H Urine Nitrite NEG Ur Leukocyte Esterase TRACE H Urine RBC 10-14 H Urine WBC 5-9 H Ur Squamous Epith Cells 1+ Ur Renal Epithelial Cell 3+ Triple Phos Crystals TRACE Amorphous Sediment 4+ Urine Bacteria TRACE Hyaline Casts 1-4 Granular Casts 5-9 Urine Mucus TRACE COVID-19 ([facility]) Negative COVID-19 Clin Com See Note 11/27/21 11/27/21 10:47 11:30 Anion Gap 16 Estim Creat Clear Calc 23.7 Estimated GFR 36 POC Glucose 101 Random Glucose 189 H Calcium 8.0 L D Urine Color Urine Appearance Urine pH Ur Specific [place] Urine Protein Urine Glucose (UA) Urine Ketones Urine Blood Urine Nitrite Ur Leukocyte Esterase Urine RBC Urine WBC Ur Squamous Epith Cells Ur Renal Epithelial Cell Triple Phos Crystals Amorphous Sediment Urine Bacteria Hyaline Casts Granular Casts Urine Mucus COVID-19 ([facility]) COVID-19 Clin Com Microbiology Microbiology Results: Microbiology 11/26/21 15:32 Urine Culture - Preliminary Urine clean catch - Urine agrawal top No growth to date. Assessment and Plan (1) Right lower lobe lung mass: Status: Acute (2) Pulmonary nodules: Status: Acute (3) Dehydration: Status: Acute (4) Acute kidney failure: Status: Acute Plan 81 with increaseing weakness, weight loss in setting of lung mass, MAYELA MAYELA--pre renal? state, better -IVF and reassess and if not improving then nephro consult Weaknesss--liekly from dehydration, malignancy Lung mass likely malignant -was planned to see CT surgery tomorrow, so will get inpatient consult -discussed with Dr. Cespedes his oncologist Moderate protein caloy malnutrition -likely related to neoplasm -Nutriotion eval CAD--stable -continue metoprolol, ASA, Lipitor HLP--Lipitor diabetes--Hold metformin d/t renal failure, hold glipizide HTN--Metoprolol DVT prophylaxis: Heparin DNR/DNI--discussed with patienet and HCP (daughter Crow) Admission to [facility] at least 2 midnight for IVF to restore kidney funtion, not taking in adequate oral hydration Quality Stroke Does the patient have a stroke diagnosis?: No VTE Prior VTE?: No VTE Risk Level:: Medical - moderate - high VTE Device Contraindication: N/A - Device Ordered VTE Drug Contraindication: N/A - Med Ordered
--- NOTE | 2021-11-27 14:24 | PC.NURSE ---
pt need being met tolerating po using bedside urinal. waiting for bedassignment
--- NOTE | 2021-11-27 15:32 | PC.NURSE ---
Report taken from previous rn pt is caox4 with nonlabored resp and strong and regular radial pulses. pt in no distress.
[2021-11-27 17:17] LABS: Glucose, Whole Blood 169 mg/dL (60-115)
--- NOTE | 2021-11-27 18:05 | PC.NURSE ---
[place] [facility] [facility] [place]
[2021-11-27 20:14] LABS: Glucose, Whole Blood 219 mg/dL (60-115)
[2021-11-27] MEDS: Metoprolol Tartrate 50 MG TABLET PO (20:22)
[2021-11-27] MEDS: Atorvastatin Calcium 40 MG TABLET PO (20:22)
[2021-11-28] VITALS (7 sets, daily range): BP systolic 131–149; BP diastolic 63–66; PULSE 56–69; RESP 12–18; TEMP 36.3–36.7; O2SAT 92–100; BMI 18.5
[2021-11-28] MEDS: Lactated Ringers 1,000 ML 100 ML IVCONT ×3 (00:47→22:54)
[2021-11-28] MEDS: Heparin Sodium,Porcine 5,000 UNIT/ML VIAL 5000 UNIT SUBCUT ×2 (03:29→16:11)
[2021-11-28 07:47] LABS: Glucose, Whole Blood 96 mg/dL (60-115)
[2021-11-28] MEDS: Aspirin Enteric Coated 81 MG TABLET.DR PO (08:49)
[2021-11-28] MEDS: Metoprolol Tartrate 50 MG TABLET PO ×2 (08:49→21:23)
--- NOTE | 2021-11-28 09:26 | HO.PM.IMPN ---
Subjective Subjective Date of Service: 11/28/21 Interval History: f/u on garfield, failure to thrive, lung mass interval history:Stiil feels weak, was able to eat a little bit yesterday Review of Systems weakness, no sob, no feve Physical Exam Vital Signs: Vital Signs: Last Vital Signs Temp 97.6 F 11/28/21 07:32 Pulse 66 11/28/21 07:32 Resp 18 11/28/21 07:32 BP 142/64 H 11/28/21 07:32 Pulse Ox 96 11/28/21 07:32 O2 Del Method 11/28/21 07:32 BMI result Body Mass Index 18.5 Const: Other: General: AO X 3, no acute distress, cachectic Resp: CTA bilateral CVS: S1,S2,RRR GI: +BS, NT, no distention Skin: No rash Neuro: motor grossly intact Psych: appropriate affect Objective Data Active Medications Al Hydroxide/Mg Hydroxide (Magnesium Hydrox/Alum Hydrox 30 Ml Oral.Susp) 30 ml PO Q4H PRN PRN Reason: Heartburn/Nausea Aspirin (Aspirin Enteric Coated 81 Mg Tablet.Dr) 81 mg PO DAILY [facility] Last Admin: 11/28/21 08:49 Dose: 81 mg Documented By: MARLY Atorvastatin Calcium (Atorvastatin Calcium 40 Mg Tablet) 40 mg PO BEDTIME [facility] Last Admin: 11/27/21 20:22 Dose: 40 mg Documented By: DASHAWN Heparin Sodium (Porcine) (Heparin Sodium,Porcine 5,000 Unit/Ml Vial) 5,000 unit SUBCUT Q12H [facility] Last Admin: 11/28/21 03:29 Dose: 5,000 unit Documented By: DASHAWN Lactated Ringer's (Lr) 1,000 mls @ 100 mls/hr IVCONT .Q10H [facility] Last Admin: 11/28/21 00:47 Dose: 100 mls/hr Documented By: DASHAWN Insulin Human Lispro (Insulin Lispro 100 Unit/Ml 3 Ml Vial) 0 unit SUBCUT QIDACHS [facility]; Protocol Last Admin: 11/28/21 08:22 Dose: Not Given Documented By: MARLY Non-Admin Reason: No Insulin Coverage Melatonin (Melatonin 3 Mg Tablet) 6 mg PO BEDTIME PRN PRN Reason: Insomnia Metoprolol Tartrate (Metoprolol Tartrate 50 Mg Tablet) 50 mg PO BID [facility]; Protocol Last Admin: 11/28/21 08:49 Dose: 50 mg Documented By: MARLY Pharmacy Consult (Consult Rx Perform Med Rec) 1 each MISCELLANE ONCE PRN PRN Reason: Consult order Sodium Chloride (0.9 % Sodium Chloride Flush 3 Ml Syringe) 3 ml IVFLUSH QSHIFT [facility] Last Admin: 11/28/21 08:49 Dose: Not Given Documented By: MARLY Non-Admin Reason: IV Running Labs CBC & Chem 7: 11/26/21 12:43 11/27/21 10:47 Labs: Laboratory Results - last 24 hr 11/27/21 11/27/21 11/27/21 10:47 11:30 17:13 Anion Gap 16 Estim Creat Clear Calc 23.7 Estimated GFR 36 POC Glucose 101 169 H Random Glucose 189 H Calcium 8.0 L D 11/27/21 11/28/21 20:03 07:32 Anion Gap Estim Creat Clear Calc Estimated GFR POC Glucose 219 H 96 Random Glucose Calcium Microbiology Microbiology Results: Microbiology 11/26/21 12:53 Blood Culture - Preliminary Blood - Venous No growth after 24 hours. 11/26/21 12:43 Blood Culture - Preliminary Blood - Venous No growth after 24 hours. 11/26/21 15:32 Urine Culture - Preliminary Urine clean catch - Urine agrawal top No growth to date. Assessment and Plan (1) Right lower lobe lung mass: Status: Acute (2) Pulmonary nodules: Status: Acute (3) Dehydration: Status: Acute (4) Acute kidney failure: Status: Acute Plan 81 with increaseing weakness, weight loss in setting of lung mass, GARFIELD GARFIELD--pre renal? 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 Cespedes recommended thoracic surgery consult and PFTs (which is not done as inpatient) Moderate protein caloy malnutrition -likely related to neoplasm -Nutriotion eval CAD--stable -continue metoprolol, ASA, Lipitor HLP--Lipitor diabetes--Hold metformin d/t renal failure, hold glipizide HTN--Metoprolol DVT prophylaxis: Heparin DNR/DNI--discussed with patienet and HCP (daughter Souzane) Inpatient need for GARFIELD needing IVF to restore kidney funtion, not taking in adequate oral hydration PT eval Quality Stroke Does the patient have a stroke diagnosis?: No VTE Prior VTE?: No VTE Risk Level:: Medical - moderate - high VTE Device Contraindication: N/A - Device Ordered VTE Drug Contraindication: N/A - Med Ordered
--- NOTE | 2021-11-28 11:17 | PM.CNGS ---
History of Present Illness Consult details Consult date: 11/28/21 Narrative: Mr. Stephen is an 81-year-old male who is admitted to the [facility] for weakness, dehydration, and failure to thrive. The patient has had a slowly progressive decline since May of this year per his daughter, but over the past 2 to 3 weeks has gotten much worse. He has lost about 30 to 40 pounds since May, the most of which over the past 3 months. Patient complains of poor appetite and feeling fatigued. Of note, the daughter does state that he lost his longtime and best friend who about a month ago and feels that he may also be slightly depressed which may be worsening his current state. Upon work-up in the ER he was noted to have an MAYELA and was started on IV fluids and was admitted to the medical service for ongoing management. Patient also notes that he has had a couple dark, black bowel movements recently. Denies any maroon or bloody stools. Denies any abdominal pain or difficulty swallowing. Patient is unsure when, or if, he has had a colonoscopy in the past. The patient also apparently had a fall last night/early this morning when he was changing rooms within the hospital. States that he fell onto his right chest wall. Denies any head injury or loss of consciousness. A cervical spine and head CT was performed that showed no acute abnormality, but he does complain of some lower right back pain/chest pain since that fall. Thoracic surgery is being consulted as he was initially scheduled to have an outpatient visit with Dr. Aguilar in the office today for a newly diagnosed 2.2 x 3 cm mass in the superior segment of the right lower lobe found on CT in October 2021. He had previously seen Dr. Cespedes from medical oncology who had ordered a PET CT scan which was also done in October 2021 that showed abnormal uptake within the right lower lobe mass itself with an SUV max of 5.3, as well as generalized uptake within the GI tract, but no uptake within intrathoracic lymph nodes or the other previously seen pulmonary nodules. Most specifically, on CT scan there was a left lower lobe 1.3 cm nodule which was not completely evaluated due to significant respiratory artifact, which was not PET positive and looked much smaller than noted previously. Patient has a longtime history of smoking for about 52 years. He denies any personal history of cancer within his immediate family or with himself. He does endorse unintentional weight loss and poor appetite since May of about 30 to 40 pounds. Denies any hemoptysis, night sweats, or lumps or bumps in his neck/armpits/groins that may be of concern for lymphadenopathy. Review of Systems Constitutional: Constitutional: Denies body ache(s), Denies chills, Denies excessive sweating, Denies fever(s), Denies frequent falls, Denies headache(s), Reports lethargy, Denies night sweats, Reports poor appetite, Reports weakness and Reports weight loss Eyes: Eyes: Denies blurry vision, Denies diplopia and Denies loss of vision ENT: Denies dysphagia, Denies dizziness, Denies headache(s), Denies hoarseness, Denies neck mass, Denies neck pain, Denies odynophagia, Denies sore throat and Denies throat swelling Cardiovascular: Cardiovascular: Denies chest pain, Denies chest pain at rest, Denies chest pain with activity, Denies Epigastric Pain, Reports pedal edema, Denies lightheadedness, Denies palpitations, Denies dyspnea, Reports dyspnea on exertion, Denies orthopnea and Denies paroxysmal nocturnal dyspnea Respiratory: Respiratory: Reports cough, Denies hemoptysis, Denies dyspnea, Reports dyspnea on exertion, Denies stridor and Denies wheezing Gastrointestinal: Gastrointestinal: Denies abdominal pain, Reports melena, Denies bloating, Denies hematochezia, Denies dysphagia, Denies heartburn, Reports loose stools, Denies nausea, Denies odynophagia and Denies vomiting Genitourinary: Genitourinary: Denies dysuria, Denies flank pain, Denies urinary frequency, Denies urinary incontinence and Denies urinary urgency Musculoskeletal: Musculoskeletal: Reports back pain, Denies arthralgias, Denies neck pain, Denies numbness and Denies tingling Integumentary/Breasts: Skin/Breast: Denies lesions, Denies rash and Denies wounds Neurologic: Denies dizziness, Denies frequent falls, Denies headache(s), Denies loss of vision, Denies memory loss, Denies numbness, Denies tingling and Reports weakness Psychiatric: Psychiatric: Denies memory loss Endocrine: Endocrine: Denies excessive sweating and Denies palpitations Allergic/Immunologic: Allergic/Immunologic: Denies throat swelling and Denies wheezing PMFSH Past Medical History Medical History Anemia CAD (coronary artery disease) Hyperlipidemia Hypertension Personal history of nicotine dependence Type 2 diabetes mellitus without complication Family History Family History Father ETOH abuse Mother DM2 (diabetes mellitus, type 2) Brother Ischemic heart disease Surgical History Surgical History History of heart artery stent History of implantable cardiac defibrillator (ICD) Social History Social History Household Members: None Housing: House Do you presently have visiting nurse or other home services: No Patient Tobacco Use Status: Never used Tobacco Smoked in Last 30 Days: No e-Cigarette/Vaping Use: Never Used Use of substances other than those prescribed or required for medical reasons: No Currently Displaying Signs/Symptoms of Drug Intoxication Withdrawal: No Do you feel safe in your current relationship?: No Current Relationship Advance Directives: No Advance Directives Information Provided: Yes Do you have thoughts of harming others: None Do you have a plan to hurt others: No Plan Recently lost weight without trying: Yes How much weight loss: 14-23 pounds Nutrition Risks: Poor intake 0-25% >4 days service: No Current occupational status: retired Current occupation: Retired - own an [employer] Allergies Allergy/AdvReac Type Severity Reaction Status Date / Time No Known Allergies Allergy Verified 11/26/21 10:58 Active Medications: Current Medications Al Hydroxide/Mg Hydroxide (Magnesium Hydrox/Alum Hydrox 30 Ml Oral.Susp) 30 ml PO Q4H PRN PRN Reason: Heartburn/Nausea Aspirin (Aspirin Enteric Coated 81 Mg Tablet.) 81 mg PO DAILY [facility] Last Admin: 11/28/21 08:49 Dose: 81 mg Atorvastatin Calcium (Atorvastatin Calcium 40 Mg Tablet) 40 mg PO BEDTIME [facility] Last Admin: 11/27/21 20:22 Dose: 40 mg Heparin Sodium (Porcine) (Heparin Sodium,Porcine 5,000 Unit/Ml Vial) 5,000 unit SUBCUT Q12H [facility] Last Admin: 11/28/21 03:29 Dose: 5,000 unit Lactated Ringer's (Lr) 1,000 mls @ 100 mls/hr IVCONT .Q10H [facility] Last Admin: 11/28/21 00:47 Dose: 100 mls/hr Insulin Human Lispro (Insulin Lispro 100 Unit/Ml 3 Ml Vial) 0 unit SUBCUT QIDACHS [facility]; Protocol Last Admin: 11/28/21 08:22 Dose: Not Given Melatonin (Melatonin 3 Mg Tablet) 6 mg PO BEDTIME PRN PRN Reason: Insomnia Metoprolol Tartrate (Metoprolol Tartrate 50 Mg Tablet) 50 mg PO BID [facility]; Protocol Last Admin: 11/28/21 08:49 Dose: 50 mg Pharmacy Consult (Consult Rx Perform Med Rec) 1 each MISCELLANE ONCE PRN PRN Reason: Consult order Sodium Chloride (0.9 % Sodium Chloride Flush 3 Ml Syringe) 3 ml IVFLUSH QSHIFT [facility] Last Admin: 11/28/21 08:49 Dose: Not Given Home Medications Medication Instructions Recorded Confirmed Last Taken Type aspirin 81 mg tablet,delayed 81 mg PO DAILY 11/26/21 11/26/21 11/26/21 History release glipizide 10 mg tablet 1 tab PO BID 11/26/21 11/26/21 11/26/21 History metformin 500 mg tablet 2 tab PO BID 11/26/21 11/26/21 11/26/21 History metoprolol tartrate 50 mg tablet 50 mg PO BID 11/26/21 11/26/21 11/26/21 History simvastatin 80 mg tablet 1 tab PO BEDTIME 11/26/21 11/26/21 11/25/21 History Physical Exam Vital Signs: Vital Signs: Last Vital Signs Temp 97.6 F 11/28/21 07:32 Pulse 66 11/28/21 10:46 Resp 18 11/28/21 07:32 BP 142/64 H 11/28/21 10:46 Pulse Ox 96 11/28/21 10:46 O2 Del Method 11/28/21 07:32 BMI result Body Mass Index 18.5 General: No acute distress, resting comfortably in bed, thin frail appearing male laying in bed, daughter (Lyla) at bedside Head: Normocephalic, atraumatic, symmetric Eyes: Sclera anicteric, eyelids without edema or erythema, +EOMS intact ENT: Oral mucosa and tongue are moist without lesions or exudates Neck: Soft, supple, symmetric, trachea midline, no crepitus, no mass visualized or palpated Cardiovascular: Regular rate and rhythm, no murmur/rubs/gallops, pacemaker noted in left chest. Bilateral upper extremities without edema. Bilateral lower extremities with 2+ pitting edema from mid calf down to the ankles, no calf tenderness. Respiratory: Lungs CTA B, breathing nonlabored, speaking in full sentences, on room air. No use of accessory muscles. No obvious chest wall abnormalities. Gastrointestinal: Soft, non-tender, non-distended, +normoactive bowel sounds. Skin: Warm and dry throughout, no rashes Lymphatic: no cervical, supraclavicular, or axillary infraclavicular lymphadenopathy noted Musculoskeletal: No obvious deformity of the cervical, thoracic, or lumbar spine. Patient does have tenderness to palpation lateral right to the lumbar spine over the lower posterior ribs without deformity. Neurological: Alert and oriented x 3, no focal neurological deficit noted Genitourinary: Urinal at patient bedside with medium yellow clear urine Psychiatric: No agitation, appropriate affect Results Labs Result diagrams: 11/26/21 12:43 11/28/21 10:50 Labs: Abnormal lab results 11/27/21 11/27/21 Range/Units 17:13 20:03 POC Glucose 169 H 219 H (60-115) mg/dL Urine 11/26/21 Range/Units 15:32 Urine Color YELLOW Urine Appearance HAZY Urine pH 5.5 (5.0-8.0) Ur Specific [place] >= 1.030 H (1.005-1.025) Urine Protein 1+ H (NEG-TRACE) MG/DL Urine Glucose (UA) NEG (NEG) MG/DL All other labs normal. Imaging Additional studies: CT Scan Report Signed Patient: Kendall Stephne Attending Dr: Vernon Guido MD Ordering Physician: Vernon Guido MD Date of Service: 10/30/21 Procedure(s): CT chest wo con Accession Number(s): [id number] cc: Vernon Guido MD~ EXAMINATION: CT CHEST WITHOUT CONTRAST CLINICAL INFORMATION: Follow-up lung nodules? COMPARISON: Previous chest x-ray September 2021? TECHNIQUE: Multidetector volumetric CT imaging of the chest was done. Axial MIP volume rendering provided. Sagittal and coronal reformatted images were obtained.? This CT examination was performed using dose optimization techniques as appropriate, variously including the following: *Automated exposure control *Adjustment of mA and/or kV according to patient size (this includes techniques or standardized protocols for targeted exams where dose is matched to indication/reason for exam; i.e. extremities or head) *Use of iterative reconstruction technique DLP: 127 mGy-cm FINDINGS: LUNGS: There is a 2.2 x 3 cm mass/nodule in the superior segment of the right lower lobe. This abuts the major fissure and retracts the fissure. It is uncertain whether this crosses the fissure involving the posterior segment of the right upper lobe. This has spiculated margins. Evaluation for left pulmonary nodules is somewhat limited due to artifact from respiratory motion. There is an 8 mm nodule in the superior segment of the left lower lobe axial image 280 series 7. There is a 1.3 cm nodule in the left lower lobe axial image 480 series 7. There is a 3 mm right upper lobe nodule axial image 125 series 7. There is a 3 mm left upper lobe nodule axial image 300 series 7. MEDIASTINUM: There are small mediastinal lymph nodes. No enlarged lymph nodes are seen. The heart does not appear enlarged. There is coronary artery calcification. There is a left subclavian AICD device. The thoracic aorta is normal in caliber. PLEURA: There is no pleural effusion. No pleural mass or thickening.? AXILLA: No lymphadenopathy.? UPPER ABDOMEN: There are gallstones in the gallbladder. There are multiple bilateral renal stones. Largest visualized stone measures 1 x 1.4 cm in the upper pole of the right kidney. There is diverticulosis of the colon. OSSEOUS STRUCTURES: There are degenerative changes of the spine.? CT/CT chest wo con IMPRESSION: Bilateral pulmonary nodules, largest a 2.2 x 3 cm right lower lobe nodule//mass. Appearance is concerning for malignancy. Severe coronary artery calcification. Large bilateral renal stones. ? Fleischner guidelines were followed. PET Report Signed Patient: Kendall Stephen Attending Dr: Braden Cespedes MD Ordering Physician: Braden Cespedes MD Date of Service: 11/18/21 Procedure(s): PET CT fusion skull to thigh Accession Number(s): [id number] cc: Braden Cespedes MD~ EXAMINATION: Fluorine-18 FDG PET/CT Scan CLINICAL INDICATION: Initial treatment management. Right lower lobe lung nodule. PROCEDURE: 82 minutes following the intravenous administration of 18.4 mCi of fluorine 18 FDG, images from the base of the skull to the mid thighs were obtained using a combined PET/CT scanner with CT scan based attenuation correction. No oral contrast was administered. No intravenous contrast was administered. Transverse, coronal, sagittal, and volume reconstruction projections were obtained. The patient's blood glucose as determined by a finger stick, was 211 mg/dl immediately prior to injection. Total CT exam dose-length product 205.21 mGy-cm *? These CT images were obtained using dose optimization techniques as appropriate, variously including the following: Automated exposure control *? Adjustment of mA and/or kV according to patient size (this includes techniques or standardized protocols for targeted exams where dose is matched to indication/reason for exam; i.e. extremities or head) *? Use of iterative reconstruction technique COMPARISON: No previous PET/CT scan is available for comparison. CT scan of the chest dated 10/30/2021 is available for comparison. FINDINGS: (Slice numbers described in this report are numbered superiorly to inferiorly with slice #1 in the head) NECK AND VISUALIZED HEAD: No foci of abnormal FDG activity are noted. The distribution of FDG activity is physiological. There is no cervical lymphadenopathy. THORAX: The spiculated right lung pulmonary mass a nodule in the superior segment of the left lower lobe measures 1.3 x 1.0 cm in largest transverse dimensions visualized on the prior 10/30/[address] scan is again visualized and is unchanged in appearance. This is FDG avid showing SUVmax 5.3, slice 87/267. This is again noted to penetrate the major interlobar fissure and extend into the posterior segment of the right upper lobe but most of the volume of the mass is in the superior segment of the right lower lobe. On the current CT images this measures 3.3 x 2.1 cm in largest transverse dimensions, and approximately 2.5 cm cephalocaudad. Additional 0.3 cm nodules visualized on 10/30/2021 are again visualized, in the right upper lobe posteriorly, slice 176/698 and anterolaterally in the left upper lobe, slice 255/698. Both of these are much too small to be characterized on the FDG PET images. No additional suspicious pulmonary nodules are visualized. There is no mediastinal, supraclavicular, or axillary lymphadenopathy. There is no pleural or pericardial fluid, or pneumothorax. A left-sided AICD and associated leads are noted, unchanged from 10/30/2021, ABDOMEN AND PELVIS: There is diffuse FDG activity throughout the gastrointestinal tract, most prominently in the hepatic flexure of the large bowel. This is probably physiological, possibly due to metformin use.? No associated CT abnormalities are present. There is diverticulosis without evidence of diverticulitis. The hollow viscera are otherwise unremarkable. There are no suspicious foci of abnormally increased FDG activity present in the abdomen or pelvis. The liver is unremarkable. Multiple deep tendon densely calcified gallstones are present. The gallbladder is otherwise unremarkable. The spleen is unremarkable. Multiple bilateral densely calcified nonobstructing renal calculi are present, the largest in the upper pole of the right kidney measuring 2.2 x 1.3 cm in largest transverse dimensions. The kidneys are otherwise unremarkable. The adrenal glands and pancreas are unremarkable. Densely calcified calculi are present in the urinary bladder. The pelvic organs are otherwise unremarkable. There is no retroperitoneal, mesenteric, pelvic or inguinal lymphadenopathy. MUSCULOSKELETAL: No foci of abnormal FDG activity are present in the osseous structures. There are diffuse degenerative changes in the spine but no suspicious sclerotic or lytic lesions are visualized. VASCULAR: Diffuse vascular calcifications including dense coronary calcifications are noted. PET/PET CT fusion skull to thigh IMPRESSION: 1.? The previously visualized right lung mass shows abnormal FDG activity and is most likely malignant in etiology. 2.? No additional abnormalities suspicious for metastatic or other malignant lesions are noted. 3.? Cholelithiasis. 4.? Densely calcified bilateral nonobstructing renal calculi and prominent bladder calculi are noted. 5.? Diffuse vascular calcifications including coronary. Assessment and Plan (1) Right lower lobe lung mass: Status: Acute Plan Mr. Stephen is an 81 year old male who was recently found to have a 2.2 x 3cm mass in the superior segment of the right lower lobe which is PET positive with an SUV max of 5.3. He has been seen by Dr. Mc from medical oncology who referred the patient to see Dr. Aguilar as an outpatient, however prior to his office visit the patient was admitted to [facility] for weakness, dehydration, and FTT. FTT / weight loss Recommend optimizing patient's medical status during this admission, including a territory sales professional consult for nutritional support. Patient complained of recent black stools at home, as well as during this admission. Would recommend sending an occult stool blood to evaluate this. Patient is unsure when, or if, he has ever had a colonoscopy. Fall Patient states he had a fall last night/early this morning. Complaining of a fair amount of pain in his lower back/right posterior chest wall. No obvious traumatic injury upon inspection such as stepoff or deformity. Ordered rib xrays to evaluate for rib fractures, and has lumbar spine xrays pending ordered by hospitalist. Right lung mass Likely malignancy. PET scan showed uptake within the mass and diffuse generalized uptake in the GI tract, but no other uptake elsewhere including in the other known pulmonary nodules or intrathoracic lymph nodes. Workup will continue as an outpatient. Patient will need PFTs. Patient will also likely need a navigational bronchoscopy with biopsy of the right lung mass in addition to an EBUS to stage the mediastinum. Patient has severe coronary atherosclerosis seen on CT scan, as well as a pacemaker. Will need cardiology clearance for any surgical procedure. Case discussed with Dr. Aguilar. Thank you for the consultation. Thoracic surgery will continue following as an outpatient. Please call us back with any questions or concerns while the patient is in-house. Procedures Date of Service Date of Service: 11/28/21
[2021-11-28 11:20] LABS: Anion Gap 15 (12-20); Blood Urea Nitrogen 40 mg/dL (9-16); Calcium 7.8 mg/dL (8.4-10.2); Carbon Dioxide 20 mmol/L (22-29); Chloride 109 mmol/L (96-108); Creatinine Clr Calc Pharmacy 28.9; Estimated Glomerular Filt Rate 45; Glucose Random 206 mg/dL (60-115); Potassium 4.6 mmol/L (3.3-5.1); Sodium 139 mmol/L (135-145)
[2021-11-28 12:03] LABS: Glucose, Whole Blood 185 mg/dL (60-115)
[2021-11-28] MEDS: Insulin Lispro 100 UNIT/ML 3 ML VIAL SUBCUT ×3 (12:59→21:22)
--- NOTE | 2021-11-28 14:03 | MHC.CLN ---
NUTRITION CONSULT FOR MALNUTRITION. PER NUTRITION DX, QUALIFIES SEVERE MALNUTRITION IN THE CONTEXT OF ACUTE ILLNESS/INJURY. DAUGHTER PRESENT AT VISIT. PATIENT LIKES ENSURE SUPPLEMENT. ORDER IN PLACE FOR ENSURE TID (1050 KCALS, 60 G PROTEIN). DECLINE IN INTAKE, APPETITE AND WEIGHT LOSS REPORTED SINCE . TRIGGERS SIGNIFICANT WEIGHT LOSS X 2 MONTHS BASED ON INFORMATION PROVIDED BY DAUGHTER. WEIGHT 10/12=61.4 KG. WEIGHT LOSS -12.7% X 2 MONTHS. DAUGHTER SELECTED SOFTER FOODS FOR PATIENT AND GAVE PREFERENCES TO [facility]. FOLLOW FOR INTAKE/DIET TOLERANCE. SEE CLINICAL NUTRITION ASSESSMENT.
[2021-11-28 16:24] LABS: Glucose, Whole Blood 197 mg/dL (60-115)
[2021-11-28 20:19] LABS: Glucose, Whole Blood 193 mg/dL (60-115)
[2021-11-28] MEDS: Atorvastatin Calcium 40 MG TABLET PO (21:23)
[2021-11-29 03:07] VITALS: BP 141/65; PULSE 58; RESP 14; TEMP 36.4; O2SAT 93
[2021-11-29] MEDS: Heparin Sodium,Porcine 5,000 UNIT/ML VIAL 5000 UNIT SUBCUT ×2 (04:51→16:53)
[2021-11-29 07:30] VITALS: BP 162/70; PULSE 68; RESP 14; TEMP 36.4; O2SAT 93
[2021-11-29 07:33] LABS: Glucose, Whole Blood 133 mg/dL (60-115)
[2021-11-29] MEDS: Metoprolol Tartrate 50 MG TABLET PO ×2 (08:30→21:09)
[2021-11-29] MEDS: Aspirin Enteric Coated 81 MG TABLET.DR PO (08:30)
[2021-11-29] MEDS: 0.9 % Sodium Chloride Flush 3 ML SYRINGE IVFLUSH ×3 (08:31→21:09)
[2021-11-29 11:23] LABS: Glucose, Whole Blood 220 mg/dL (60-115)
[2021-11-29] MEDS: Insulin Lispro 100 UNIT/ML 3 ML VIAL SUBCUT ×3 (11:25→21:09)
--- NOTE | 2021-11-29 11:25 | HO.PM.IMPN ---
Subjective Subjective Date of Service: 11/29/21 Interval History: f/u on mayela, failure to thrive, lung mass interval history:Stiil feels weak, was able to eat a little bit yesterday Review of Systems weakness, no sob, no feve Physical Exam Vital Signs: Vital Signs: Last Vital Signs Temp 97.6 F 11/29/21 07:30 Pulse 68 11/29/21 07:30 Resp 14 11/29/21 07:30 BP 162/70 H 11/29/21 07:30 Pulse Ox 93 11/29/21 07:30 O2 Del Method 11/29/21 07:30 BMI result Body Mass Index 18.5 Objective Data Active Medications Al Hydroxide/Mg Hydroxide (Magnesium Hydrox/Alum Hydrox 30 Ml Oral.Susp) 30 ml PO Q4H PRN PRN Reason: Heartburn/Nausea Aspirin (Aspirin Enteric Coated 81 Mg Tablet.) 81 mg PO DAILY [facility] Last Admin: 11/29/21 08:30 Dose: 81 mg Documented By: EMMANUEL Atorvastatin Calcium (Atorvastatin Calcium 40 Mg Tablet) 40 mg PO BEDTIME [facility] Last Admin: 11/28/21 21:23 Dose: 40 mg Documented By: ANIKA Heparin Sodium (Porcine) (Heparin Sodium,Porcine 5,000 Unit/Ml Vial) 5,000 unit SUBCUT Q12H [facility] Last Admin: 11/29/21 04:51 Dose: 5,000 unit Documented By: ANIKA Insulin Human Lispro (Insulin Lispro 100 Unit/Ml 3 Ml Vial) 0 unit SUBCUT QIDACHS [facility]; Protocol Last Admin: 11/29/21 08:31 Dose: Not Given Documented By: EMMANUEL Non-Admin Reason: No Insulin Coverage Melatonin (Melatonin 3 Mg Tablet) 6 mg PO BEDTIME PRN PRN Reason: Insomnia Metoprolol Tartrate (Metoprolol Tartrate 50 Mg Tablet) 50 mg PO BID [facility]; Protocol Last Admin: 11/29/21 08:30 Dose: 50 mg Documented By: EMMANUEL Pharmacy Consult (Consult Rx Perform Med Rec) 1 each MISCELLANE ONCE PRN PRN Reason: Consult order Sodium Chloride (0.9 % Sodium Chloride Flush 3 Ml Syringe) 3 ml IVFLUSH QSHIFT [facility] Last Admin: 11/29/21 08:31 Dose: 3 ml Documented By: HO.NGENOAL Labs CBC & Chem 7: 11/26/21 12:43 11/28/21 10:50 Labs: Laboratory Results - last 24 hr 11/28/21 11/28/21 11/28/21 11:19 15:54 20:01 POC Glucose 185 H 197 H 193 H 11/29/21 11/29/21 07:28 11:19 POC Glucose 133 H 220 H Microbiology Microbiology Results: Microbiology 11/26/21 12:53 Blood Culture - Preliminary Blood - Venous No growth after 48 hours. 11/26/21 12:43 Blood Culture - Preliminary Blood - Venous No growth after 48 hours. 11/26/21 15:32 Urine Culture - Final Urine clean catch - Urine agrawal top No growth. Assessment and Plan (1) Right lower lobe lung mass: Status: Acute (2) Pulmonary nodules: Status: Acute (3) Dehydration: Status: Acute (4) Acute kidney failure: Status: Acute Plan 81 with increaseing weakness, weight loss in setting of lung mass, MAYELA MAYELA--pre renal? 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 Cespedes recommended thoracic surgery consult and PFTs (which is not done as inpatient) Fall with chest wall pain and back pain--Xrays no fracture Moderate protein caloy malnutrition -likely related to neoplasm -Nutriotion eval--supplements CAD--stable -continue metoprolol, ASA, Lipitor HLP--Lipitor Diabetes--Hold metformin d/t renal failure, hold glipizide HTN--Metoprolol DVT prophylaxis: Heparin DNR/DNI--discussed with patienet and HCP (elizabet Maria) Inpatient need for MAYELA needing IVF to restore kidney funtion, not taking in adequate oral hydration PT eval Quality Stroke Does the patient have a stroke diagnosis?: No VTE Prior VTE?: No VTE Risk Level:: Medical - moderate - high VTE Device Contraindication: N/A - Device Ordered VTE Drug Contraindication: N/A - Med Ordered
[2021-11-29 12:00] VITALS: BP 135/64; PULSE 58; RESP 17; TEMP 37.3; O2SAT 93
--- NOTE | 2021-11-29 14:25 | P.PNHO-ONC_ITS ---
Medical Summary - Medical Summary Date of Service: 11/29/21 Interval History Interval history: Kendall Stephen is a 81 year old male admitted yesterday for dehydration. 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 He denies pain or dyspnea. Review of Systems - Constitutional Reports anorexia - ENT Reports system reviewed and no additional complaints, except as documented - Respiratory Reports chest congestion, Reports cough, Reports dyspnea on exertion - Gastrointestinal Reports other - Genitourinary Genitourinary: Reports urinary urgency - Musculoskeletal Reports muscle weakness - Neurologic Reports system reviewed and no additional complaints, except as documented, Reports weakness, Denies frequent falls, Denies headache(s), Denies loss of vision, Denies memory loss, Denies numbness, Denies sensory deficit, Denies tingling PMFSH Medical History: Medical History (Last Reviewed 11/28/21 @ 10:47 by Jackie Dent, PT) Anemia CAD (coronary artery disease) Hyperlipidemia Hypertension Personal history of nicotine dependence Type 2 diabetes mellitus without complication Family History: Family History (Last Reviewed 11/27/21 @ 07:50 by Rakan Salmeron MD) Father ETOH abuse Mother DM2 (diabetes mellitus, type 2) Brother Ischemic heart disease Surgical History: Surgical History (Last Reviewed 11/28/21 @ 10:47 by Jackie Dent, PT) History of heart artery stent History of implantable cardiac defibrillator (ICD) Social History: Social History (Last Reviewed 11/27/21 @ 07:50 by Rakan Salmeron MD) Living Situation History: Household Members: None Housing: House Do you presently have visiting nurse or other home services: No Alcohol History Details: 1. How often do you have a drink containing alcohol?: a. Never AUDIT-C Alcohol total score: 0 Currently Displaying Signs/Symptoms of Alcohol Withdrawal: No Tobacco History: Patient Tobacco Use Status: Never used Tobacco Smoked in Last 30 Days: No e-Cigarette/Vaping Use: Never Used Substance Use History: Use of substances other than those prescribed or required for medical reasons : No Currently Displaying Signs/Symptoms of Drug Intoxication Withdrawal: No Domestic Abuse History: Do you feel safe in your current relationship?: No Current Relationship Advance Directives: Advance Directives: No Advance Directives Information Provided: Yes Homicidal Assessment: Do you have thoughts of harming others: None Do you have a plan to hurt others: No Plan Nutrition Assessment: Recently lost weight without trying: Yes How much weight loss: 14-23 pounds Nutrition Risks: Poor intake 0-25% >4 days Occupation Assessmet: service: No Current occupational status: retired 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 Home Medications and Allergies Current Medications: Current Medications Al Hydroxide/Mg Hydroxide (Magnesium Hydrox/Alum Hydrox 30 Ml Oral.Susp) 30 ml PO Q4H PRN PRN Reason: Heartburn/Nausea Aspirin (Aspirin Enteric Coated 81 Mg Tablet.) 81 mg PO DAILY [facility] Last Admin: 11/29/21 08:30 Dose: 81 mg Atorvastatin Calcium (Atorvastatin Calcium 40 Mg Tablet) 40 mg PO BEDTIME [facility] Last Admin: 11/28/21 21:23 Dose: 40 mg Heparin Sodium (Porcine) (Heparin Sodium,Porcine 5,000 Unit/Ml Vial) 5,000 unit SUBCUT Q12H [facility] Last Admin: 11/29/21 04:51 Dose: 5,000 unit Insulin Human Lispro (Insulin Lispro 100 Unit/Ml 3 Ml Vial) 0 unit SUBCUT QIDACHS [facility]; Protocol Last Admin: 11/29/21 11:25 Dose: 4 unit Melatonin (Melatonin 3 Mg Tablet) 6 mg PO BEDTIME PRN PRN Reason: Insomnia Metoprolol Tartrate (Metoprolol Tartrate 50 Mg Tablet) 50 mg PO BID [facility]; Protocol Last Admin: 11/29/21 08:30 Dose: 50 mg Pharmacy Consult (Consult Rx Perform Med Rec) 1 each MISCELLANE ONCE PRN PRN Reason: Consult order Sodium Chloride (0.9 % Sodium Chloride Flush 3 Ml Syringe) 3 ml IVFLUSH QSHIFT [facility] Last Admin: 11/29/21 08:31 Dose: 3 ml Home Medications Medication Instructions Recorded Confirmed Type aspirin 81 mg tablet,delayed 81 mg PO DAILY 11/26/21 11/26/21 History release glipizide 10 mg tablet 1 tab PO BID 11/26/21 11/26/21 History metformin 500 mg tablet 2 tab PO BID 11/26/21 11/26/21 History metoprolol tartrate 50 mg tablet 50 mg PO BID 11/26/21 11/26/21 History simvastatin 80 mg tablet 1 tab PO BEDTIME 11/26/21 11/26/21 History Allergies Allergy/AdvReac Type Severity Reaction Status Date / Time No Known Allergies Allergy Verified 11/26/21 10:58 Exam Vital signs: Vital Signs Temp 99.2 F 11/29/21 12:00 Pulse 58 11/29/21 12:00 Resp 17 11/29/21 12:00 BP 135/64 11/29/21 12:00 Pulse Ox 93 11/29/21 12:00 O2 Del Method 11/29/21 12:00 Intake & Output 11/28/21 11/29/21 11/29/21 18:59 06:59 18:59 Intake Total 1480 / 3820 2340 / 3820 961.667 / 961.667 Output Total 690 / 690 Balance 1480 / 3130 1650 / 3130 961.667 / 961.667 Urine Output (Average ml/kg/hr) 1.07 1.07 Intake: Intake, Oral Amount 480 / 820 340 / 820 Intake, IV Amount 1000 / 3000 2000 / 3000 961.667 / 961.667 0.9 % Sodium Chloride 1,000 ml 1000 / 1000 @ 999 mls/hr IVCONT .Q1H1M RIGOBERTO Rx#:[id number] Lactated Ringers 1,000 ml @ 100 1000 / 2000 1000 / 2000 961.667 / 961.667 mls/hr IVCONT .Q10H RIGOBERTO Rx#: [id number] Output: Output, Urine Amount 690 / 690 Other: Meal Refused No NPO No Breakfast % Eaten 50% Dinner % Eaten 50% Evening Snack % Eaten 100 Number of Incontinent Voids 1 Urine Urinal Urine Color Yellow Stool Bedpan Weight 53.6 kg Weight 53.6 kg BMI result Body Mass Index 18.5 - Constitutional Present: no acute distress, somnolent - Routine HEENT Exam Head: Present: atraumatic, normal inspection - Routine Respiratory Exam Present: decreased breath sounds - Routine Cardiovascular Exam Cardiovascular: Present: RRR - Routine Abdominal Exam Present: diminished bowel sounds - Routine Extremities Exam Present: nontender - Routine Neurological Exam Present: oriented X3, altered mental status Data - Labs CBC & Chem 7: 11/26/21 12:43 11/28/21 10:50 Labs: 11/26/21 ECG 12 lead EKG Stat 11/26/21 11:08 EKG Documentation DIRECTED 11/26/21 12:06 XR chest 1V Stat 11/26/21 12:15 0.9 % Sodium Chloride [Ns] 1,000 ml IVCONT 999 mls/hr 11/26/21 12:43 Basic Metabolic Panel Stat Complete Blood Count Auto Diff Stat Lactic Acid Stat Lipase Stat Liver Panel Stat TSH reflex Free T4 Stat 11/26/21 13:48 Diabetic Diet 11/26/21 13:56 COVID-19 ID NOW ([employer]) Stat 11/26/21 14:12 Glucose, Whole Blood Routine 11/26/21 15:32 Urine Culture Routine 11/26/21 15:41 Intake and Output Q8HR Vital Signs QSHIFT 11/27/21 03:17 CT cervical spine wo con Stat CT head/brain wo con Stat 11/27/21 08:15 Lactated Ringers [Lr] 1,000 ml IVCONT 100 mls/hr 11/27/21 10:47 BMP [Basic Metabolic Panel] Routine 11/27/21 11:30 Glucose, Whole Blood Routine 11/27/21 17:13 Glucose, Whole Blood Routine 11/27/21 20:03 Glucose, Whole Blood Routine 11/28/21 XR lumbar spine 2-3V Routine XR ribs RT min 3V w CXR1V Routine 11/28/21 07:32 Glucose, Whole Blood Routine 11/28/21 10:50 BMP [Basic Metabolic Panel] Routine 11/28/21 11:19 Glucose, Whole Blood Routine 11/28/21 15:54 Glucose, Whole Blood Routine 11/28/21 20:01 Glucose, Whole Blood Routine 11/29/21 07:28 Glucose, Whole Blood Routine 11/29/21 11:19 Glucose, Whole Blood Routine Laboratory Last Values WBC 13.8 X10*3/uL (4.8-10.8) H 11/26/21 12:43 RBC 4.36 X10*6/uL (4.60-5.80) L 11/26/21 12:43 Hgb 14.2 g/dl (14.0-18.0) 11/26/21 12:43 Hct 43.6 % (42.0-52.0) 11/26/21 12:43 MCV 100.0 fL (80.0-98.0) H 11/26/21 12:43 MCH 32.6 pg (27.0-33.0) 11/26/21 12:43 MCHC 32.6 g/dl (31.0-36.0) 11/26/21 12:43 RDW 13.1 % (11.0-16.0) 11/26/21 12:43 Plt Count 222 X10*3/uL (160-400) D 11/26/21 12:43 MPV 9.5 fL (9.4-12.4) 11/26/21 12:43 Immature Gran % (Auto) 0.4 % (0.0-0.4) 11/26/21 12:43 Neut % (Auto) 89.4 % (45-73) H 11/26/21 12:43 Lymph % (Auto) 5.7 % (20-40) L 11/26/21 12:43 [place] % (Auto) 4.1 % (2-11) 11/26/21 12:43 Eos % (Auto) 0.1 % (0-4) 11/26/21 12:43 Baso % (Auto) 0.3 % (0-2) 11/26/21 12:43 Lymph # (Auto) 0.8 X10*3/uL (1.2-4.9) L 11/26/21 12:43 [place] # (Auto) 0.6 X10*3/uL (0.1-1.2) 11/26/21 12:43 Eos # (Auto) 0.0 X10*3/uL (0.0-0.4) 11/26/21 12:43 Baso # (Auto) 0.0 X10*3/uL (0.0-0.2) 11/26/21 12:43 Abs Immat Gran (auto) 0.05 X10*3/uL (0.00-0.03) H 11/26/21 12:43 Absolute Neuts (auto) 12.3 x10*3/uL (2.0-8.3) H 11/26/21 12:43 Absolute Nucleated RBC 0.000 X10*3/uL (0.0-0.012) 11/26/21 12:43 Nucleated RBC % (auto) 0.0 /100WBC (0.0-0.2) 11/26/21 12:43 Sodium 139 mmol/L (135-145) 11/28/21 10:50 Potassium 4.6 mmol/L (3.3-5.1) 11/28/21 10:50 Chloride 109 mmol/L (96-108) H 11/28/21 10:50 Carbon Dioxide 20 mmol/L (22-29) L 11/28/21 10:50 Anion Gap 15 (12-20) 11/28/21 10:50 BUN 40 mg/dL (9-16) H 11/28/21 10:50 Creatinine 1.49 mg/dL (0.5-1.4) H 11/28/21 10:50 Estim Creat Clear Calc 28.9 11/28/21 10:50 Estimated GFR 45 11/28/21 10:50 POC Glucose 220 mg/dL (60-115) H 11/29/21 11:19 Random Glucose 206 mg/dL (60-115) H 11/28/21 10:50 Lactic Acid 1.8 mmol/L (0.5-2.0) 11/26/21 12:43 Calcium 7.8 mg/dL (8.4-10.2) L 11/28/21 10:50 Total Bilirubin 0.4 mg/dL (0.0-1.0) 11/26/21 12:43 Direct Bilirubin 0.2 mg/dL (0.0-0.5) 11/26/21 12:43 AST 41 U/L (5-37) H D 11/26/21 12:43 ALT 34 U/L (0-40) 11/26/21 12:43 Alkaline Phosphatase 80 U/L (39-117) 11/26/21 12:43 Total Protein 5.7 g/dL (6.5-8.0) L 11/26/21 12:43 Albumin 3.5 g/dL (3.5-5.0) 11/26/21 12:43 Lipase 283 U/L (8-78) H 11/26/21 12:43 TSH 1.83 uIU/mL (0.32-4.0) 11/26/21 12:43 Urine Color YELLOW 11/26/21 15:32 Urine Appearance HAZY 11/26/21 15:32 Urine pH 5.5 (5.0-8.0) 11/26/21 15:32 Ur Specific Warner >= 1.030 (1.005-1.025) H 11/26/21 15:32 Urine Protein 1+ MG/DL (NEG-TRACE) H 11/26/21 15:32 Urine Glucose (UA) NEG MG/DL (NEG) 11/26/21 15:32 Urine Ketones 15 MG/DL (NEG) 11/26/21 15:32 Urine Blood 3+ (NEG) H 11/26/21 15:32 Urine Nitrite NEG (NEG) 11/26/21 15:32 Ur Leukocyte Esterase TRACE (NEG) H 11/26/21 15:32 Urine RBC 10-14 /HPF (0) H 11/26/21 15:32 Urine WBC 5-9 /HPF (0-4) H 11/26/21 15:32 Ur Squamous Epith Cells 1+ /LPF 11/26/21 15:32 Ur Renal Epithelial Cell 3+ /LPF 11/26/21 15:32 Triple Phos Crystals TRACE /LPF 11/26/21 15:32 Amorphous Sediment 4+ /LPF 11/26/21 15:32 Urine Bacteria TRACE /LPF 11/26/21 15:32 Hyaline Casts 1-4 /LPF 11/26/21 15:32 Granular Casts 5-9 /LPF 11/26/21 15:32 Urine Mucus TRACE /LPF 11/26/21 15:32 COVID-19 (HUGO) Negative (Negative) 11/26/21 13:56 COVID-19 Clin Com See Note 11/26/21 13:56 - Imaging Radiologist's impression: ITS Impressions Chest X-Ray 11/26/21 12:23 FINDINGS/IMPRESSION: Bilateral lung masses are again visualized, better appreciated on recent prior CT scan. There is no acute radiographic finding. No infiltrate, effusion, or pneumothorax is seen. The heart appears normal in size. The tip of a left subclavian pulse generator device lead projects over the right ventricle. The aorta is mildly atherosclerotic. The right hemidiaphragm is mildly elevated, unchanged. The mediastinum, bones and soft tissues appear unremarkable. Cervical Spine CT 11/27/21 04:50 IMPRESSION: No acute intracranial finding. No acute fracture or malalignment of the cervical spine. Moderate degenerative change. Head CT 11/27/21 04:50 IMPRESSION: No acute intracranial finding. No acute fracture or malalignment of the cervical spine. Moderate degenerative change. Lumbar Spine X-Ray 11/28/21 12:38 IMPRESSION: Degenerative changes. No fracture or dislocation. Ribs X-Ray 11/28/21 12:38 IMPRESSION: No evidence for acute disease in the chest. No rib fracture seen. Assessment and Plan Patient Active problem list reviewed?: Yes (1) Pulmonary nodules Status: Acute Assessment and plan: He has one significant nodule which is pet positive. He has been seen by the thoracic service whose note was greatly appreciated for its quality. He is much improved and his work up will continue. (2) Dehydration Start date: 11/29/21 Status: Acute - Time Spent With Patient Time Spent with Patient (in minutes): 15
[2021-11-29 15:46] VITALS: BP 140/60; PULSE 64; RESP 17; TEMP 36.6; O2SAT 94
[2021-11-29 16:51] LABS: Glucose, Whole Blood 343 mg/dL (60-115)
[2021-11-29 19:54] VITALS: BP 126/63; PULSE 76; RESP 17; TEMP 36.8; O2SAT 99
[2021-11-29 20:07] LABS: Glucose, Whole Blood 193 mg/dL (60-115)
[2021-11-29] MEDS: Atorvastatin Calcium 40 MG TABLET PO (21:09)
[2021-11-29 21:41] LABS: OBS Int Ctl Valid YES; OBS1 POSITIVE (NEGATIVE)
[2021-11-29 23:16] VITALS: BP 137/63; PULSE 63; RESP 18; TEMP 36.6; O2SAT 93
[2021-11-30 03:08] VITALS: BP 135/62; PULSE 72; RESP 18; TEMP 36.8; O2SAT 92
[2021-11-30] MEDS: Heparin Sodium,Porcine 5,000 UNIT/ML VIAL 5000 UNIT SUBCUT ×2 (03:24→14:23)
[2021-11-30] MEDS: HYDROmorphone HCl 0.5 MG/0.5 ML SYRINGE IVPUSH (05:04)
[2021-11-30 07:31] VITALS: BP 109/60; PULSE 86; RESP 17; TEMP 37.5
[2021-11-30 07:54] LABS: Glucose, Whole Blood 151 mg/dL (60-115)
--- NOTE | 2021-11-30 08:35 | HO.PM.IMPN ---
Subjective Subjective Date of Service: 11/30/21 Interval History: f/u on mayela, failure to thrive, lung mass interval history:He's coughing with clear mucus, no fever, difficulty getting O2 sat due to cold extremity--same thing happened yesterday and finally when able to obtain was 98, he doesn't feel sob Review of Systems weakness, no sob, no fever Physical Exam Vital Signs: Vital Signs: Last Vital Signs Temp 99.5 F 11/30/21 07:31 Pulse 86 11/30/21 07:31 Resp 17 11/30/21 07:31 BP 109/60 11/30/21 07:31 Pulse Ox 92 11/30/21 03:08 O2 Del Method 11/30/21 03:08 BMI result Body Mass Index 18.5 Const: Other: General: AO X 3, no acute distress, cachectic Resp: CTA bilateral CVS: S1,S2,RRR GI: +BS, NT, no distention Skin: No rash Neuro: motor grossly intact Psych: appropriate affect Objective Data Active Medications Al Hydroxide/Mg Hydroxide (Magnesium Hydrox/Alum Hydrox 30 Ml Oral.Susp) 30 ml PO Q4H PRN PRN Reason: Heartburn/Nausea Aspirin (Aspirin Enteric Coated 81 Mg Tablet.) 81 mg PO DAILY [facility] Last Admin: 11/29/21 08:30 Dose: 81 mg Documented By: EMMANUEL Atorvastatin Calcium (Atorvastatin Calcium 40 Mg Tablet) 40 mg PO BEDTIME [facility] Last Admin: 11/29/21 21:09 Dose: 40 mg Documented By: DASHAWN Heparin Sodium (Porcine) (Heparin Sodium,Porcine 5,000 Unit/Ml Vial) 5,000 unit SUBCUT Q12H [facility] Last Admin: 11/30/21 03:24 Dose: 5,000 unit Documented By: DASHAWN Hydromorphone HCl (Hydromorphone Hcl 0.5 Mg/0.5 Ml Syringe) 0.5 mg IVPUSH Q4H PRN; Protocol PRN Reason: Breakthrough Pain Last Admin: 11/30/21 05:04 Dose: 0.5 mg Documented By: DASHAWN Insulin Human Lispro (Insulin Lispro 100 Unit/Ml 3 Ml Vial) 0 unit SUBCUT QIDACHS [facility]; Protocol Last Admin: 11/29/21 21:09 Dose: 2 unit Documented By: DASHAWN Melatonin (Melatonin 3 Mg Tablet) 6 mg PO BEDTIME PRN PRN Reason: Insomnia Metoprolol Tartrate (Metoprolol Tartrate 50 Mg Tablet) 50 mg PO BID [facility]; Protocol Last Admin: 11/29/21 21:09 Dose: 50 mg Documented By: DASHAWN Pharmacy Consult (Consult Rx Perform Med Rec) 1 each MISCELLANE ONCE PRN PRN Reason: Consult order Sodium Chloride (0.9 % Sodium Chloride Flush 3 Ml Syringe) 3 ml IVFLUSH QSHIFT [facility] Last Admin: 11/29/21 21:09 Dose: 3 ml Documented By: DASHAWN Labs CBC & Chem 7: 11/26/21 12:43 11/28/21 10:50 Labs: Laboratory Results - last 24 hr 11/29/21 11/29/21 11/29/21 11:19 16:41 19:56 POC Glucose 220 H 343 H 193 H Stool Occult Blood 11/29/21 11/30/21 21:11 07:36 POC Glucose 151 H Stool Occult Blood POSITIVE Assessment and Plan (1) Right lower lobe lung mass: Status: Acute (2) Pulmonary nodules: Status: Acute (3) Dehydration: Status: Acute (4) Acute kidney failure: Status: Acute Plan 81 with increaseing weakness, weight loss in setting of lung mass, MAYELA MAYELA--pre renal? 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 Cespedes recommended thoracic surgery consult and PFTs (which is not done as inpatient) Cough--repeat CXR, cough meds Fall with chest wall pain and back pain--Xrays no fracture Moderate protein caloy malnutrition -likely related to neoplasm -Nutriotion eval--supplements CAD--stable -continue metoprolol, ASA, Lipitor HLP--Lipitor Diabetes--Hold metformin d/t renal failure, hold glipizide HTN--Metoprolol DVT prophylaxis: Heparin DNR/DNI--discussed with patienet and HCP (elizabet Maria) Inpatient need for MAYELA needing IVF to restore kidney funtion, not taking in adequate oral hydration PT recommends STR, Prognosis is poor Quality Stroke Does the patient have a stroke diagnosis?: No VTE Prior VTE?: No VTE Risk Level:: Medical - moderate - high VTE Device Contraindication: N/A - Device Ordered VTE Drug Contraindication: N/A - Med Ordered
[2021-11-30] MEDS: Aspirin Enteric Coated 81 MG TABLET.DR PO (09:27)
[2021-11-30] MEDS: Metoprolol Tartrate 50 MG TABLET PO ×2 (09:27→20:28)
[2021-11-30] MEDS: Insulin Lispro 100 UNIT/ML 3 ML VIAL SUBCUT ×2 (09:27→20:28)
[2021-11-30] MEDS: 0.9 % Sodium Chloride Flush 3 ML SYRINGE IVFLUSH ×3 (09:28→20:29)
[2021-11-30 09:33] LABS: Anion Gap 18 (12-20); Blood Urea Nitrogen 31 mg/dL (9-16); Calcium 7.6 mg/dL (8.4-10.2); Carbon Dioxide 19 mmol/L (22-29); Chloride 107 mmol/L (96-108); Creatinine Clr Calc Pharmacy 32.7; Estimated Glomerular Filt Rate 52; Glucose Random 177 mg/dL (60-115); Potassium 4.6 mmol/L (3.3-5.1); Sodium 139 mmol/L (135-145)
[2021-11-30 11:27] VITALS: BP 109/55; PULSE 89; RESP 16; TEMP 37.3; O2SAT 90
[2021-11-30 11:29] LABS: Glucose, Whole Blood 206 mg/dL (60-115)
[2021-11-30] MEDS: guaiFENesin 100 MG/5 ML LIQUID PO (14:23)
[2021-11-30 15:23] LABS: COVID-19 Test Negative (Negative); IDNOW Serial# 16C4AD1C
[2021-11-30 15:35] VITALS: BP 110/62; PULSE 84; RESP 18; TEMP 36.8; O2SAT 96
[2021-11-30 16:28] LABS: Glucose, Whole Blood 165 mg/dL (60-115)
[2021-11-30 19:28] VITALS: BP 92/50; PULSE 80; RESP 18; TEMP 36.6; O2SAT 95
[2021-11-30 19:48] LABS: Glucose, Whole Blood 174 mg/dL (60-115)
[2021-11-30] MEDS: Atorvastatin Calcium 40 MG TABLET PO (20:28)
[2021-11-30 23:21] VITALS: BP 93/50; PULSE 60; RESP 18; TEMP 36.3; O2SAT 92
[2021-12-01] VITALS (7 sets, daily range): BP systolic 93–117; BP diastolic 52–63; PULSE 61–76; RESP 16–20; TEMP 36.1–37.2; O2SAT 90–100
[2021-12-01] MEDS: Heparin Sodium,Porcine 5,000 UNIT/ML VIAL 5000 UNIT SUBCUT ×2 (04:22→16:26)
[2021-12-01 07:15] LABS: Glucose, Whole Blood 151 mg/dL (60-115)
[2021-12-01] MEDS: Insulin Lispro 100 UNIT/ML 3 ML VIAL SUBCUT ×4 (08:18→21:32)
[2021-12-01] MEDS: Metoprolol Tartrate 50 MG TABLET PO ×2 (08:18→21:31)
[2021-12-01] MEDS: Aspirin Enteric Coated 81 MG TABLET.DR PO (08:18)
[2021-12-01] MEDS: 0.9 % Sodium Chloride Flush 3 ML SYRINGE IVFLUSH ×2 (08:18→16:27)
--- NOTE | 2021-12-01 09:41 | P.PNIM_ITS ---
Subjective Subjective Date of Service: 12/01/21 Interval History: f/u on mayela, failure to thrive, lung mass interval history:Very frail looking, denying pain, no sob, cough, marginal O2 sat Review of Systems weakness, no sob, no fever Physical Exam Vital Signs: Vital Signs: Last Vital Signs Temp 97.5 F 12/01/21 07:25 Pulse 73 12/01/21 07:25 Resp 20 12/01/21 07:25 BP 115/60 12/01/21 07:25 Pulse Ox 90 L 12/01/21 07:25 O2 Del Method 12/01/21 07:25 O2 Flow Rate 2 12/01/21 07:25 BMI result Body Mass Index 18.5 Const: Other: General: AO X 3, no acute distress, cachectic Resp: CTA bilateral CVS: S1,S2,RRR GI: +BS, NT, no distention Skin: No rash Neuro: motor grossly intact Psych: appropriate affect Objective Data Active Medications Al Hydroxide/Mg Hydroxide (Magnesium Hydrox/Alum Hydrox 30 Ml Oral.Susp) 30 ml PO Q4H PRN PRN Reason: Heartburn/Nausea Aspirin (Aspirin Enteric Coated 81 Mg Tablet.) 81 mg PO DAILY [facility] Last Admin: 12/01/21 08:18 Dose: 81 mg Documented By: HODA Atorvastatin Calcium (Atorvastatin Calcium 40 Mg Tablet) 40 mg PO BEDTIME RIGOBERTO Last Admin: 11/30/21 20:28 Dose: 40 mg Documented By: KARLY Guaifenesin (Guaifenesin 100 Mg/5 Ml Liquid) 5 ml PO Q4H PRN PRN Reason: Cough Last Admin: 11/30/21 14:23 Dose: 5 ml Documented By: CAREY Heparin Sodium (Porcine) (Heparin Sodium,Porcine 5,000 Unit/Ml Vial) 5,000 unit SUBCUT Q12H RIGOBERTO Last Admin: 12/01/21 04:22 Dose: 5,000 unit Documented By: KARLY Hydromorphone HCl (Hydromorphone Hcl 0.5 Mg/0.5 Ml Syringe) 0.5 mg IVPUSH Q4H PRN; Protocol PRN Reason: Breakthrough Pain Last Admin: 11/30/21 05:04 Dose: 0.5 mg Documented By: DASHAWN Insulin Human Lispro (Insulin Lispro 100 Unit/Ml 3 Ml Vial) 0 unit SUBCUT QIDACHS RIGOBERTO; Protocol Last Admin: 12/01/21 08:18 Dose: 2 unit Documented By: HODA Melatonin (Melatonin 3 Mg Tablet) 6 mg PO BEDTIME PRN PRN Reason: Insomnia Metoprolol Tartrate (Metoprolol Tartrate 50 Mg Tablet) 50 mg PO BID [facility]; Protocol Last Admin: 12/01/21 08:18 Dose: 50 mg Documented By: HODA Pharmacy Consult (Consult Rx Perform Med Rec) 1 each MISCELLANE ONCE PRN PRN Reason: Consult order Sodium Chloride (0.9 % Sodium Chloride Flush 3 Ml Syringe) 3 ml IVFLUSH QSHIFT RIGOBERTO Last Admin: 12/01/21 08:18 Dose: 3 ml Documented By: HODA Labs CBC & Chem 7: 11/26/21 12:43 11/30/21 09:05 Labs: Laboratory Results - last 24 hr 11/30/21 11/30/21 11/30/21 11:24 14:30 15:39 POC Glucose 206 H 165 H COVID-19 ([facility]) Negative COVID-19 Clin Com See Note 11/30/21 12/01/21 19:43 07:10 POC Glucose 174 H 151 H COVID-19 ([facility]) COVID-19 Clin Com Assessment and Plan (1) Pulmonary nodules: Status: Acute (2) Acute kidney failure: Status: Acute (3) Right lower lobe lung mass: Status: Acute Plan 81 with increaseing weakness, weight loss in setting of lung mass, MAYELA MAYELA--pre renal? state, resolved -IVF, follow BMP Weaknesss--liekly from dehydration, malignancy Hypoxia no sob , likely related lung mass, also extremities are very cold making it hard to detect O2, CXR negative Lung mass likely malignant -Seen by CT surgery--outpatient w/u in cluding PFTs -Seen by Dr. Cespedes recommended thoracic surgery consult and PFTs (which is not done as inpatient) -Overall looking very frail with not so good prognosis, and will discuss with patient and daughter re hospice Cough--repeat CXR no acute finding Fall with chest wall pain and back pain--Xrays no fracture Moderate protein calor malnutrition -likely related to neoplasm -Nutrition eval--supplements CAD--stable -continue metoprolol, ASA, Lipitor HLP--Lipitor Diabetes--Hold metformin d/t renal failure, hold glipizide HTN--Metoprolol DVT prophylaxis: Heparin DNR/DNI--discussed with patienet and HCP (daughter Crow) Inpatient need for MAYELA needing IVF to restore kidney funtion, not taking in adequate oral hydration PT recommends STR, Prognosis is poor Quality Stroke Does the patient have a stroke diagnosis?: No VTE Prior VTE?: No VTE Risk Level:: Medical - moderate - high VTE Device Contraindication: N/A - Device Ordered VTE Drug Contraindication: N/A - Med Ordered
[2021-12-01 11:55] LABS: Glucose, Whole Blood 242 mg/dL (60-115)
--- NOTE | 2021-12-01 14:15 | MHC.CLN ---
NUTRITION DIET LIBERALIZED FROM CARDIAC TO REGULAR TO PROMOTE PO INTAKE. CONTINUE ENSURE TID TO PROVIDE 1050 KCALS, 60 G PROTEIN, INTAKE USUALLY 24-50%. QUALIFIES SEVERE MALNUTRITION. REQUIRES SOFTER FOODS FOR EASE OF CHEWING. FOLLOW FOR INTAKE/DIET TOLERANCE.
[2021-12-01 16:03] LABS: Glucose, Whole Blood 223 mg/dL (60-115)
[2021-12-01 19:41] LABS: Glucose, Whole Blood 232 mg/dL (60-115)
[2021-12-01] MEDS: Atorvastatin Calcium 40 MG TABLET PO (21:31)
[2021-12-02] VITALS (9 sets, daily range): BP systolic 100–133; BP diastolic 54–63; PULSE 60–101; RESP 14–18; TEMP 35.7–36.8; O2SAT 94–98
--- NOTE | 2021-12-02 02:03 | PC.NURSE ---
family member called to check on pt and requesting appetite stimulant
[2021-12-02] MEDS: Heparin Sodium,Porcine 5,000 UNIT/ML VIAL 5000 UNIT SUBCUT ×2 (03:45→16:14)
[2021-12-02] MEDS: HYDROmorphone HCl 0.5 MG/0.5 ML SYRINGE IVPUSH (06:02)
[2021-12-02 07:50] LABS: Glucose, Whole Blood 151 mg/dL (60-115)
[2021-12-02] MEDS: 0.9 % Sodium Chloride Flush 3 ML SYRINGE IVFLUSH ×4 (09:03→20:49)
[2021-12-02] MEDS: Metoprolol Tartrate 50 MG TABLET PO ×2 (09:03→20:48)
[2021-12-02] MEDS: Aspirin Enteric Coated 81 MG TABLET.DR PO (09:03)
[2021-12-02] MEDS: Insulin Lispro 100 UNIT/ML 3 ML VIAL SUBCUT ×4 (09:03→20:48)
[2021-12-02] MEDS: guaiFENesin 100 MG/5 ML LIQUID PO (09:12)
[2021-12-02 11:28] LABS: Glucose, Whole Blood 206 mg/dL (60-115)
--- NOTE | 2021-12-02 15:21 | MHC.CM.PN ---
PER MEDICAL ROUNDS, PATIENT POSSIBLY GOALS OF CARE DISCUSSION. POSSIBLY HOSPICE.
[2021-12-02 15:43] LABS: Glucose, Whole Blood 220 mg/dL (60-115)
[2021-12-02] MEDS: Atorvastatin Calcium 40 MG TABLET PO (20:48)
[2021-12-02 21:18] LABS: Glucose, Whole Blood 158 mg/dL (60-115)
[2021-12-03 03:32] VITALS: BP 113/52; PULSE 79; RESP 18; TEMP 37.1; O2SAT 92
[2021-12-03] MEDS: Heparin Sodium,Porcine 5,000 UNIT/ML VIAL 5000 UNIT SUBCUT ×2 (04:05→17:34)
[2021-12-03] MEDS: HYDROmorphone HCl 0.5 MG/0.5 ML SYRINGE IVPUSH (04:10)
[2021-12-03 07:31] LABS: Glucose, Whole Blood 107 mg/dL (60-115)
[2021-12-03 08:03] VITALS: BP 121/67; PULSE 88; RESP 18; TEMP 36.5; O2SAT 92
[2021-12-03 09:16] LABS: Hematocrit 40.5 % (42.0-52.0); Hemoglobin 13.3 g/dl (14.0-18.0); Mean Corpuscular HGB Conc 32.8 g/dl (31.0-36.0); Mean Corpuscular Hemoglobin 32.8 pg (27.0-33.0); Mean Corpuscular Volume 99.8 fL (80.0-98.0); Platelet Count 221 X10*3/uL (160-400); Red Blood Count 4.06 X10*6/uL (4.60-5.80); Red Cell Distribution Width 13.9 % (11.0-16.0); White Blood Count 12.6 X10*3/uL (4.8-10.8)
[2021-12-03 09:38] LABS: Anion Gap 16 (12-20); Blood Urea Nitrogen 47 mg/dL (9-16); Calcium 7.6 mg/dL (8.4-10.2); Carbon Dioxide 21 mmol/L (22-29); Chloride 110 mmol/L (96-108); Creatinine Clr Calc Pharmacy 27.8; Estimated Glomerular Filt Rate 43; Glucose Random 161 mg/dL (60-115); Potassium 4.8 mmol/L (3.3-5.1); Sodium 142 mmol/L (135-145)
[2021-12-03 09:39] LABS: Alanine Aminotransferase 86 U/L (0-40); Albumin Level 2.7 g/dL (3.5-5.0); Alkaline Phosphatase 192 U/L (39-117); Aspartate Amino Transferase 65 U/L (5-37); Bilirubin Direct 0.3 mg/dL (0.0-0.5); Bilirubin Total 0.4 mg/dL (0.0-1.0); Total Protein 4.7 g/dL (6.5-8.0)
[2021-12-03] MEDS: Aspirin Enteric Coated 81 MG TABLET.DR PO (10:53)
[2021-12-03] MEDS: Metoprolol Tartrate 50 MG TABLET PO ×2 (10:53→21:35)
[2021-12-03] MEDS: 0.9 % Sodium Chloride Flush 3 ML SYRINGE IVFLUSH (10:54)
[2021-12-03 11:13] LABS: Glucose, Whole Blood 110 mg/dL (60-115)
[2021-12-03 12:00] VITALS: BP 133/63; PULSE 97; RESP 16; TEMP 37.2; O2SAT 92
--- NOTE | 2021-12-03 12:17 | HO.PM.IMPN ---
Subjective Subjective Date of Service: 12/03/21 Interval History: Very weak Appetite not good Unsure whether he wants to pursue workup of lung mass or transition to hospice care Per daughter, pt's best friend unexpectedly 2 wk ago and he is experiencing complicated bereavement Review of Systems Review of Systems: Yes all other systems are reviewed and are negative Physical Exam Vital Signs: Vital Signs: Last Vital Signs Temp 99.0 F 12/03/21 11:05 Pulse 97 12/03/21 11:05 Resp 16 12/03/21 11:05 BP 133/63 12/03/21 11:05 Pulse Ox 92 12/03/21 11:05 O2 Del Method 12/03/21 11:05 O2 Flow Rate 2 12/03/21 11:05 BMI result Body Mass Index 18.5 Gen: in no acute distress but very frail HEENT: sclera anicteric, moist mucus membranes, bitemporal wasting Neck: supple Lungs: clear to auscultation bilaterally Heart: regular rate and rhythm, no murmurs Abd: soft, non-tender, non-distended Ext: no edema Skin: warm/well-perfused Neuro: alert and oriented x3, no focal findings Psych: restricted affect Objective Data Active Medications Al Hydroxide/Mg Hydroxide (Magnesium Hydrox/Alum Hydrox 30 Ml Oral.Susp) 30 ml PO Q4H PRN PRN Reason: Heartburn/Nausea Aspirin (Aspirin Enteric Coated 81 Mg Tablet.) 81 mg PO DAILY [facility] Last Admin: 12/03/21 10:53 Dose: 81 mg Documented By: KIESHA Atorvastatin Calcium (Atorvastatin Calcium 40 Mg Tablet) 40 mg PO BEDTIME [facility] Last Admin: 12/02/21 20:48 Dose: 40 mg Documented By: DASHAWN Guaifenesin (Guaifenesin 100 Mg/5 Ml Liquid) 5 ml PO Q4H PRN PRN Reason: Cough Last Admin: 12/02/21 09:12 Dose: 5 ml Documented By: KIESHA Heparin Sodium (Porcine) (Heparin Sodium,Porcine 5,000 Unit/Ml Vial) 5,000 unit SUBCUT Q12H [facility] Last Admin: 12/03/21 04:05 Dose: 5,000 unit Documented By: DASHAWN Hydromorphone HCl (Hydromorphone Hcl 0.5 Mg/0.5 Ml Syringe) 0.5 mg IVPUSH Q4H PRN; Protocol PRN Reason: Breakthrough Pain Last Admin: 12/03/21 04:10 Dose: 0.5 mg Documented By: DASHAWN Lactated Ringer's (Lr) 1,000 mls @ 80 mls/hr IVCONT .[id number] [facility] Stop: 12/04/21 13:14 Insulin Human Lispro (Insulin Lispro 100 Unit/Ml 3 Ml Vial) 0 unit SUBCUT QIDACHS [facility]; Protocol Last Admin: 12/03/21 11:44 Dose: Not Given Documented By: KIESHA Non-Admin Reason: No Insulin Coverage Melatonin (Melatonin 3 Mg Tablet) 6 mg PO BEDTIME PRN PRN Reason: Insomnia Metoprolol Tartrate (Metoprolol Tartrate 50 Mg Tablet) 50 mg PO BID [facility]; Protocol Last Admin: 12/03/21 10:53 Dose: 50 mg Documented By: KIESHA Mirtazapine (Mirtazapine 15 Mg Tablet) 15 mg PO BEDTIME [facility] Pharmacy Consult (Consult Rx Perform Med Rec) 1 each MISCELLANE ONCE PRN PRN Reason: Consult order Sodium Chloride (0.9 % Sodium Chloride Flush 3 Ml Syringe) 3 ml IVFLUSH QSHIFT [facility] Last Admin: 12/03/21 10:54 Dose: 3 ml Documented By: KIESHA Labs CBC & Chem 7: 12/03/21 09:05 12/03/21 09:05 Labs: Laboratory Results - last 24 hr 12/02/21 12/02/21 12/03/21 15:30 19:58 07:19 MCV MCH MCHC RDW Plt Count MPV Absolute Nucleated RBC Nucleated RBC % (auto) Anion Gap Estim Creat Clear Calc Estimated GFR POC Glucose 220 H 158 H 107 Random Glucose Calcium Total Bilirubin Direct Bilirubin AST ALT Alkaline Phosphatase Total Protein Albumin 12/03/21 12/03/21 12/03/21 09:05 09:05 09:05 MCV 99.8 H MCH 32.8 MCHC 32.8 RDW 13.9 Plt Count 221 MPV 10.0 Absolute Nucleated RBC 0.000 Nucleated RBC % (auto) 0.0 Anion Gap 16 Estim Creat Clear Calc 27.8 Estimated GFR 43 POC Glucose Random Glucose 161 H Calcium 7.6 L Total Bilirubin 0.4 Direct Bilirubin 0.3 AST 65 H ALT 86 H Alkaline Phosphatase 192 H D Total Protein 4.7 L Albumin 2.7 L D 12/03/21 11:09 MCV MCH MCHC RDW Plt Count MPV Absolute Nucleated RBC Nucleated RBC % (auto) Anion Gap Estim Creat Clear Calc Estimated GFR POC Glucose 110 Random Glucose Calcium Total Bilirubin Direct Bilirubin AST ALT Alkaline Phosphatase Total Protein Albumin Assessment and Plan (1) Pulmonary nodules: Status: Acute (2) Acute kidney failure: Status: Acute (3) Right lower lobe lung mass: Status: Acute Plan hospital d#8 81yo M with CAD s/p AICD, DM2, HTN presenting with weakness + weight loss in setting of lung mass for which he is undergoing outpatient workup by Dr Cespedes, admitted with MAYELA # prerenal MAYELA - give another round of IV fluids, monitor BMP, avoid nephrotoxins # acute hypoxic resp failure - wean O2 as tolerated # lung mass - CT surg + Oncology consulted; outpt cardiac clearance, PFTs, bronchoscopy with EBUS + biopsies - pt unsure re: workup vs. hospice care # fall - no fracture, continue pain meds # mod pr/jacob malnutr - likely due to malignancy - on Ensure - add mirtazapine for appetite stimulation # CAD - continue ASA, statin, metoprolol # complicated bereavement - CARE Team consult, mirtazapine # VTE ppx - UFH # dispo - will need STR In my clinical judgment, the patient requires continued hospitalization for the following reasons: MAYELA, placement Quality Stroke Does the patient have a stroke diagnosis?: No VTE Prior VTE?: No VTE Risk Level:: Medical - moderate - high VTE Device Contraindication: N/A - Device Ordered VTE Drug Contraindication: N/A - Med Ordered
--- NOTE | 2021-12-03 12:49 | MHC.CLN ---
F/U PATIENT WITH LUNG MASS. UNSURE OF FURTHER WORKUP. FAMILY REQUESTED APPETITE STIMULANT. NEW ORDER FOR MIRTAZAPINE 15 MG . DIET=REGULAR WITH ENSURE TID. ENSURE PROVIDES 1050 KCALS, 60 G PROTEIN. INTAKE CONTINUES USUALLY POOR. FOLLOW FOR INTAKE/DIET TOLERANCE.
[2021-12-03] MEDS: Lactated Ringers 1,000 ML 80 ML IVCONT (13:26)
[2021-12-03 15:58] VITALS: BP 115/55; PULSE 69; RESP 18; TEMP 36.6; O2SAT 94
[2021-12-03 16:12] LABS: Glucose, Whole Blood 179 mg/dL (60-115)
[2021-12-03] MEDS: Insulin Lispro 100 UNIT/ML 3 ML VIAL SUBCUT ×2 (17:35→21:33)
[2021-12-03 19:49] LABS: Glucose, Whole Blood 215 mg/dL (60-115)
[2021-12-03 19:54] VITALS: BP 116/56; PULSE 61; RESP 18; TEMP 36.4; O2SAT 98
[2021-12-03] MEDS: Mirtazapine 15 MG TABLET PO (21:35)
[2021-12-03] MEDS: Atorvastatin Calcium 40 MG TABLET PO (21:35)
[2021-12-03] MEDS: Melatonin 3 MG TABLET 6 MG PO (21:35)
[2021-12-03 23:39] VITALS: BP 117/60; PULSE 61; RESP 17; TEMP 36.7; O2SAT 97
[2021-12-04] VITALS: PULSE 61; O2SAT 97
[2021-12-04] MEDS: Heparin Sodium,Porcine 5,000 UNIT/ML VIAL 5000 UNIT SUBCUT (03:16)
[2021-12-04] MEDS: Lactated Ringers 1,000 ML 80 ML IVCONT (03:18)
[2021-12-04 03:51] VITALS: BP 107/63; PULSE 57; RESP 17; TEMP 36; O2SAT 93
[2021-12-04] MEDS: HYDROmorphone HCl 0.5 MG/0.5 ML SYRINGE IVPUSH (06:20)
[2021-12-04 07:28] VITALS: BP 147/64; PULSE 72; RESP 16; TEMP 36.6; O2SAT 95
[2021-12-04 07:41] LABS: Glucose, Whole Blood 136 mg/dL (60-115)
[2021-12-04 09:00] VITALS: BP 147/64; PULSE 72; O2SAT 95
[2021-12-04] MEDS: Aspirin Enteric Coated 81 MG TABLET.DR PO (10:16)
[2021-12-04] MEDS: Metoprolol Tartrate 50 MG TABLET PO (10:16)
[2021-12-04 11:06] VITALS: BP 141/62; PULSE 70; RESP 18; TEMP 36.9; O2SAT 96
[2021-12-04 11:07] LABS: Anion Gap 20 (12-20); Blood Urea Nitrogen 48 mg/dL (9-16); Calcium 7.6 mg/dL (8.4-10.2); Carbon Dioxide 18 mmol/L (22-29); Chloride 109 mmol/L (96-108); Creatinine Clr Calc Pharmacy 26.3; Estimated Glomerular Filt Rate 40; Glucose Random 233 mg/dL (60-115); Potassium 5.5 mmol/L (3.3-5.1); Sodium 141 mmol/L (135-145)
[2021-12-04 11:21] LABS: Glucose, Whole Blood 176 mg/dL (60-115)
--- NOTE | 2021-12-04 11:37 | MHC.CM.PN ---
CM MET WITH PT AND DAUGHTER AT BEDSIDE THEY REPORT THEY ARE INTERESTED IN PT GOING ON HOSPICE TO A SNF IN [facility] WHERE HIS DAUGHTER LIVES CM EXPLAINED WHAT WOULD BE COVERED BY INSURANCE AFTER SOME DISCUSSION, THEY REQUEST A REFERRAL BE MADE TO [facility] FOR [facility] AND REFERRALS BE MADE TO FACILITIES NEAR THE [facility]. REFERRAL SENT TO [facility]
--- NOTE | 2021-12-04 12:10 | HO.PM.IMPN ---
Subjective Subjective Date of Service: 12/04/21 Interval History: Pt more energetic today but also having some hallucinations which he recognizes as such Daughter Ailyn visiting [facility]. He would like to go on hospice. Does not want to pursue diagnosis and treatment of lung mass. Review of Systems Review of Systems: Yes all other systems are reviewed and are negative Physical Exam Vital Signs: Vital Signs: Last Vital Signs Temp 98.4 F 12/04/21 11:06 Pulse 70 12/04/21 11:06 Resp 18 12/04/21 11:06 BP 141/62 H 12/04/21 11:06 Pulse Ox 96 12/04/21 11:06 O2 Del Method 12/04/21 11:06 O2 Flow Rate 2 12/04/21 11:06 BMI result Body Mass Index 18.5 Gen: in no acute distress but cachectic HEENT: sclera anicteric, moist mucus membranes, bitemporal wasting Neck: supple Lungs: clear to auscultation bilaterally Heart: regular rate and rhythm, no murmurs Abd: soft, non-tender, non-distended Ext: no edema Skin: warm/well-perfused Neuro: alert and oriented x3, no focal findings Psych: restricted affect Objective Data Active Medications Al Hydroxide/Mg Hydroxide (Magnesium Hydrox/Alum Hydrox 30 Ml Oral.Susp) 30 ml PO Q4H PRN PRN Reason: Heartburn/Nausea Guaifenesin (Guaifenesin 100 Mg/5 Ml Liquid) 5 ml PO Q4H PRN PRN Reason: Cough Last Admin: 12/02/21 09:12 Dose: 5 ml Documented By: KIESHA Hydromorphone HCl (Hydromorphone Hcl 0.5 Mg/0.5 Ml Syringe) 0.5 mg IVPUSH Q4H PRN; Protocol PRN Reason: Breakthrough Pain Last Admin: 12/04/21 06:20 Dose: 0.5 mg Documented By: DEWAYNE Melatonin (Melatonin 3 Mg Tablet) 6 mg PO BEDTIME PRN PRN Reason: Insomnia Last Admin: 12/03/21 21:35 Dose: 6 mg Documented By: KALIN Sodium Chloride (0.9 % Sodium Chloride Flush 3 Ml Syringe) 3 ml IVFLUSH QSHIFT RIGOBERTO Last Admin: 12/04/21 07:47 Dose: Not Given Documented By: KIESHA Non-Admin Reason: IV Running Labs CBC & Chem 7: 12/03/21 09:05 12/04/21 10:03 Labs: Laboratory Results - last 24 hr 12/03/21 12/03/21 12/04/21 16:02 19:36 07:33 Anion Gap Estim Creat Clear Calc Estimated GFR POC Glucose 179 H 215 H 136 H Random Glucose Calcium 12/04/21 12/04/21 10:03 11:12 Anion Gap 20 Estim Creat Clear Calc 26.3 Estimated GFR 40 POC Glucose 176 H Random Glucose 233 H D Calcium 7.6 L Assessment and Plan (1) Pulmonary nodules: Status: Acute (2) Acute kidney failure: Status: Acute (3) Right lower lobe lung mass: Status: Acute Plan hospital d#9 81yo M with CAD s/p AICD, DM2, HTN presenting with weakness + weight loss in setting of lung mass for which he is undergoing outpatient workup by Dr Cespedes, admitted with prerenal MAYELA, acute hypoxic respiratory failure, fall, and moderate protein/calorie malnutrition - declines invasive workup or procedures - wishes to transition to hospice care, preferably at SNF in [place] area near daughter; will discuss with CM - in meanwhile, d/c non-comfort medications + laboratory studies. give IV hydromorphone prn pain/dyspnea. In my clinical judgment, the patient requires continued hospitalization for the following reasons: placement Quality Stroke Does the patient have a stroke diagnosis?: No VTE Prior VTE?: No VTE Risk Level:: Medical - moderate - high VTE Device Contraindication: N/A - Device Ordered VTE Drug Contraindication: N/A - Med Ordered
[2021-12-04 15:39] VITALS: BP 114/56; PULSE 84; RESP 20; TEMP 36.3; O2SAT 95
[2021-12-04 15:55] LABS: Glucose, Whole Blood 247 mg/dL (60-115)
[2021-12-04] MEDS: Melatonin 3 MG TABLET 6 MG PO (19:12)
[2021-12-04] MEDS: 0.9 % Sodium Chloride Flush 3 ML SYRINGE IVFLUSH (19:19)
[2021-12-05 07:27] LABS: Glucose, Whole Blood 226 mg/dL (60-115)
[2021-12-05 07:44] VITALS: BP 156/72; PULSE 75; RESP 20; TEMP 36.5; O2SAT 91
[2021-12-05] MEDS: 0.9 % Sodium Chloride Flush 3 ML SYRINGE IVFLUSH ×3 (10:20→20:56)
--- NOTE | 2021-12-05 11:13 | PC.NURSE ---
Patient K+ level 5.5, lokelma ordered. This RN attempted to give patient lokelma and educated patient on the medication. Patient refused to take the medication. Dr. Patel made aware.
[2021-12-05 11:14] LABS: Glucose, Whole Blood 338 mg/dL (60-115)
[2021-12-05 11:25] VITALS: BP 118/69; PULSE 84; RESP 20; TEMP 37; O2SAT 94
--- NOTE | 2021-12-05 12:46 | MHC.CLN ---
F/U PATIENT WISHES TO TRANSITION TO HOSPICE CARE AT SNF WITH NO FURTHER WORKUP FOR LUNG MASS. DIET=REGULAR WITH ENSURE TID. ENSURE PROVIDES 1050 KCALS, 60 G PROTEIN. INTAKE CONTINUES USUALLY POOR. FOLLOW FOR INTAKE/DIET TOLERANCE.
--- NOTE | 2021-12-05 13:00 | HO.PM.IMPN ---
Subjective Subjective Date of Service: 12/05/21 Interval History: comfortable, no breathing problems, at peace with decision to pursue hospice care Review of Systems Review of Systems: Yes all other systems are reviewed and are negative Physical Exam Vital Signs: Vital Signs: Last Vital Signs Temp 98.6 F 12/05/21 11:25 Pulse 84 12/05/21 11:25 Resp 20 12/05/21 11:25 BP 118/69 12/05/21 11:25 Pulse Ox 94 12/05/21 11:25 O2 Del Method 12/05/21 11:25 O2 Flow Rate 2 12/04/21 15:39 BMI result Body Mass Index 18.5 Gen: in no acute distress but cachectic HEENT: sclera anicteric, moist mucus membranes, bitemporal wasting Neck: supple Lungs: clear to auscultation bilaterally Heart: regular rate and rhythm, no murmurs Abd: soft, non-tender, non-distended Ext: no edema Skin: warm/well-perfused Neuro: alert and oriented x3, no focal findings Psych: restricted affect Objective Data Active Medications Al Hydroxide/Mg Hydroxide (Magnesium Hydrox/Alum Hydrox 30 Ml Oral.Susp) 30 ml PO Q4H PRN PRN Reason: Heartburn/Nausea Guaifenesin (Guaifenesin 100 Mg/5 Ml Liquid) 5 ml PO Q4H PRN PRN Reason: Cough Last Admin: 12/02/21 09:12 Dose: 5 ml Documented By: KIESHA Hydromorphone HCl (Hydromorphone Hcl 0.5 Mg/0.5 Ml Syringe) 0.5 mg IVPUSH Q4H PRN; Protocol PRN Reason: Breakthrough Pain Last Admin: 12/04/21 06:20 Dose: 0.5 mg Documented By: DEWAYNE Melatonin (Melatonin 3 Mg Tablet) 6 mg PO BEDTIME PRN PRN Reason: Insomnia Last Admin: 12/04/21 19:12 Dose: 6 mg Documented By: DEWAYNE Sodium Chloride (0.9 % Sodium Chloride Flush 3 Ml Syringe) 3 ml IVFLUSH QSHIFT RIGOBERTO Last Admin: 12/05/21 10:20 Dose: 3 ml Documented By: RACHEL Labs CBC & Chem 7: 12/03/21 09:05 12/04/21 10:03 Labs: Laboratory Results - last 24 hr 12/04/21 12/05/21 12/05/21 15:43 07:22 11:09 POC Glucose 247 H 226 H 338 H Assessment and Plan (1) Pulmonary nodules: Status: Acute (2) Acute kidney failure: Status: Acute (3) Right lower lobe lung mass: Status: Acute Plan hospital d#10 81yo M with CAD s/p AICD, DM2, HTN presenting with weakness + weight loss in setting of lung mass for which he is undergoing outpatient workup by Dr Cespedes, admitted with prerenal MAYELA, acute hypoxic respiratory failure, fall, and moderate protein/calorie malnutrition - declines invasive workup or procedures - wishes to transition to hospice care, preferably at SNF in [place] area near daughter; CM working on [employer] application then placement - in meanwhile, d/c'ed non-comfort medications + laboratory studies. give IV hydromorphone prn pain/dyspnea. In my clinical judgment, the patient requires continued hospitalization for the following reasons: placement, unable to take care of self at home Quality Stroke Does the patient have a stroke diagnosis?: No VTE Prior VTE?: No VTE Risk Level:: Medical - moderate - high VTE Device Contraindication: N/A - Device Ordered VTE Drug Contraindication: N/A - Med Ordered
[2021-12-05 14:10] VITALS: BP 118/69; PULSE 84; O2SAT 94
[2021-12-05 15:05] VITALS: BP 143/64; PULSE 83; RESP 20; TEMP 36.8; O2SAT 99
--- NOTE | 2021-12-05 15:12 | MHC.CM.PN ---
CALL FROM DAUGHTER RICHARD WHO REPORTS THAT PATIENT WILL NOT QUALIFY FOR MEDICAID. SHE DOES ASK FOR A REFERRAL TO [facility] IN [place], NOW PLACED CLINICALS ALSO FAXED DIRECTLY TO CATHERINE DELGADO AT [phone] IN THE EVENT THAT FACILITY DOES NOT USE [facility].
[2021-12-05 15:30] LABS: Glucose, Whole Blood 353 mg/dL (60-115)
[2021-12-05 19:22] VITALS: BP 145/64; PULSE 148; RESP 18; TEMP 36.8; O2SAT 91
[2021-12-06 07:34] VITALS: BP 117/78; PULSE 112; RESP 18; TEMP 36.3
[2021-12-06 08:00] VITALS: O2SAT 89
--- NOTE | 2021-12-06 10:12 | HO.PM.IMPN ---
Subjective Subjective Date of Service: 12/06/21 Interval History: no pain confused awaiting placement Review of Systems Review of Systems: Yes all other systems are reviewed and are negative Physical Exam Vital Signs: Vital Signs: Last Vital Signs Temp 97.4 F 12/06/21 07:34 Pulse 112 H 12/06/21 07:34 Resp 18 12/06/21 07:34 BP 117/78 12/06/21 07:34 Pulse Ox 89 L 12/06/21 08:00 O2 Del Method 12/06/21 08:00 O2 Flow Rate 4 12/06/21 08:00 BMI result Body Mass Index 18.5 Gen: in no acute distress but cachectic HEENT: sclera anicteric, moist mucus membranes, bitemporal wasting Neck: supple Lungs: clear to auscultation bilaterally Heart: regular rate and rhythm, no murmurs Abd: soft, non-tender, non-distended Ext: no edema Skin: warm/well-perfused Neuro: alert and oriented x3, no focal findings Psych: restricted affect ? Objective Data Active Medications Al Hydroxide/Mg Hydroxide (Magnesium Hydrox/Alum Hydrox 30 Ml Oral.Susp) 30 ml PO Q4H PRN PRN Reason: Heartburn/Nausea Guaifenesin (Guaifenesin 100 Mg/5 Ml Liquid) 5 ml PO Q4H PRN PRN Reason: Cough Last Admin: 12/02/21 09:12 Dose: 5 ml Documented By: KIESHA Hydromorphone HCl (Hydromorphone Hcl 0.5 Mg/0.5 Ml Syringe) 0.5 mg IVPUSH Q4H PRN; Protocol PRN Reason: Breakthrough Pain Last Admin: 12/04/21 06:20 Dose: 0.5 mg Documented By: DEWAYNE Melatonin (Melatonin 3 Mg Tablet) 6 mg PO BEDTIME PRN PRN Reason: Insomnia Last Admin: 12/04/21 19:12 Dose: 6 mg Documented By: DEWAYNE Sodium Chloride (0.9 % Sodium Chloride Flush 3 Ml Syringe) [facility] Last Admin: 12/05/21 20:56 Dose: 3 ml Documented By: YON Labs CBC & Chem 7: 12/03/21 09:05 12/04/21 10:03 Labs: Laboratory Results - last 24 hr 12/05/21 12/05/21 11:09 15:14 POC Glucose 338 H 353 H* Assessment and Plan (1) Pulmonary nodules: Status: Acute (2) Acute kidney failure: Status: Acute (3) Right lower lobe lung mass: Status: Acute Plan hospital d#11 81yo M with CAD s/p AICD, DM2, HTN presenting with weakness + weight loss in setting of lung mass for which he is undergoing outpatient workup by Dr Cespedes, admitted with prerenal MAYELA, acute hypoxic respiratory failure, fall, and moderate protein/calorie malnutrition - declines invasive workup or procedures - wishes to transition to hospice care, preferably at SNF in [place] area near daughter; CM working on this - in meanwhile, d/c'ed non-comfort medications + laboratory studies. give IV hydromorphone prn pain/dyspnea. In my clinical judgment, the patient requires continued hospitalization for the following reasons: placement, unable to take care of self at home Quality Stroke Does the patient have a stroke diagnosis?: No VTE Prior VTE?: No VTE Risk Level:: Medical - moderate - high VTE Device Contraindication: N/A - Device Ordered VTE Drug Contraindication: N/A - Med Ordered
[2021-12-06 11:20] VITALS: BP 120/73; PULSE 110; RESP 18; TEMP 36.4; O2SAT 92
[2021-12-06] MEDS: 0.9 % Sodium Chloride Flush 3 ML SYRINGE IVFLUSH ×2 (11:31→18:47)
[2021-12-06 15:26] VITALS: BP 131/58; PULSE 60; RESP 18; TEMP 36.2; O2SAT 94
[2021-12-06 19:23] VITALS: BP 158/86; PULSE 110; RESP 17; TEMP 36.1; O2SAT 90
[2021-12-07] MEDS: 0.9 % Sodium Chloride Flush 3 ML SYRINGE IVFLUSH ×4 (00:30→21:35)
[2021-12-07 07:45] VITALS: BP 160/77; PULSE 108; RESP 20; TEMP 36.4; O2SAT 89
--- NOTE | 2021-12-07 10:17 | P.PNIM_ITS ---
Subjective Subjective Date of Service: 12/07/21 Interval History: Pt comfortable. Still wishes to pursue hospice/SNF placement. Review of Systems Review of Systems: Yes all other systems are reviewed and are negative Physical Exam Vital Signs: Vital Signs: Last Vital Signs Temp 97.6 F 12/07/21 07:45 Pulse 108 H 12/07/21 07:45 Resp 20 12/07/21 07:45 BP 160/77 H 12/07/21 07:45 Pulse Ox 89 L 12/07/21 07:45 O2 Del Method 12/07/21 07:45 O2 Flow Rate 2 12/06/21 11:20 BMI result Body Mass Index 18.5 Gen: in no acute distress but cachectic HEENT: sclera anicteric, moist mucus membranes, bitemporal wasting Neck: supple Lungs: clear to auscultation bilaterally Heart: regular rate and rhythm, no murmurs Abd: soft, non-tender, non-distended Ext: no edema Skin: warm/well-perfused Neuro: alert and oriented x3, no focal findings Psych: restricted affect Objective Data Active Medications Al Hydroxide/Mg Hydroxide (Magnesium Hydrox/Alum Hydrox 30 Ml Oral.Susp) 30 ml PO Q4H PRN PRN Reason: Heartburn/Nausea Guaifenesin (Guaifenesin 100 Mg/5 Ml Liquid) 5 ml PO Q4H PRN PRN Reason: Cough Last Admin: 12/02/21 09:12 Dose: 5 ml Documented By: KIESHA Hydromorphone HCl (Hydromorphone Hcl 0.5 Mg/0.5 Ml Syringe) 0.5 mg IVPUSH Q4H PRN; Protocol PRN Reason: Breakthrough Pain Last Admin: 12/04/21 06:20 Dose: 0.5 mg Documented By: DEWAYNE Melatonin (Melatonin 3 Mg Tablet) 6 mg PO BEDTIME PRN PRN Reason: Insomnia Last Admin: 12/04/21 19:12 Dose: 6 mg Documented By: DEWAYNE Sodium Chloride (0.9 % Sodium Chloride Flush 3 Ml Syringe) 3 ml IVFLUSH QSHIFT [facility] Last Admin: 12/07/21 08:15 Dose: 3 ml Documented By: JACINTO Labs CBC & Chem 7: 12/03/21 09:05 12/04/21 10:03 Assessment and Plan (1) Pulmonary nodules: Status: Acute (2) Acute kidney failure: Status: Acute (3) Right lower lobe lung mass: Status: Acute Plan hospital d#12 81yo M with CAD s/p AICD, DM2, HTN presenting with weakness + weight loss in setting of lung mass for which he is undergoing outpatient workup by Dr Cespedes, admitted with prerenal MAYELA, acute hypoxic respiratory failure, fall, and moderate protein/calorie malnutrition - declines invasive workup or procedures - wishes to transition to hospice care, preferably at SNF in [place] area near daughter; NENA working on this - in meanwhile, d/c'ed non-comfort medications + laboratory studies. give IV hydromorphone prn pain/dyspnea. In my clinical judgment, the patient requires continued hospitalization for the following reasons: placement, unable to take care of self at home Quality Stroke Does the patient have a stroke diagnosis?: No VTE Prior VTE?: No VTE Risk Level:: Medical - moderate - high VTE Device Contraindication: N/A - Device Ordered VTE Drug Contraindication: N/A - Med Ordered
[2021-12-07 12:00] VITALS: BP 99/74; RESP 20; TEMP 36.6
[2021-12-07 13:23] LABS: Glucose, Whole Blood 348 mg/dL (60-115)
[2021-12-07 15:35] VITALS: BP 118/68; PULSE 103; RESP 17; TEMP 36.6; O2SAT 93
[2021-12-07 16:14] LABS: Glucose, Whole Blood 356 mg/dL (60-115)
[2021-12-07] MEDS: Insulin Lispro 100 UNIT/ML 3 ML VIAL SUBCUT ×2 (16:27→21:30)
[2021-12-07 19:31] VITALS: BP 113/64; PULSE 90; RESP 17; TEMP 36.3; O2SAT 94
[2021-12-07 19:58] LABS: Glucose, Whole Blood 199 mg/dL (60-115)
[2021-12-07] MEDS: Melatonin 3 MG TABLET 6 MG PO (21:30)
[2021-12-08 07:50] LABS: Glucose, Whole Blood 226 mg/dL (60-115)
[2021-12-08 07:52] VITALS: BP 126/74; PULSE 99; RESP 26; TEMP 36.9; O2SAT 91
[2021-12-08] MEDS: Insulin Lispro 100 UNIT/ML 3 ML VIAL SUBCUT (07:55)
[2021-12-08] MEDS: 0.9 % Sodium Chloride Flush 3 ML SYRINGE IVFLUSH (07:59)
--- NOTE | 2021-12-08 09:18 | MHC.CLN ---
Addendum entered by Nancy Brenner, MEAGHAN 12/08/21 14:09: PATIENT WITH MULTIPLE UNOPENED BOTTLES OF ENSURE IN ROOM. CHANGED ENSURE TO BID. Original Note: F/U PATIENT WISHES TO TRANSITION TO HOSPICE CARE AT SNF. DIET=REGULAR WITH ENSURE TID. ENSURE PROVIDES 1050 KCALS, 60 G PROTEIN. INTAKE APPEARS VARIABLE, 0-50%. SKIN WITH REDDENED BILATERAL HEELS AND STAGE II TO COCCYX. CONTINUE NUTRITIONAL SUPPLEMENT TO PROVIDE ADDITIONAL KCALS AND PROTEIN. FOLLOW FOR INTAKE/DIET TOLERANCE.
--- NOTE | 2021-12-08 10:36 | HO.PM.IMPN ---
Subjective Subjective Date of Service: 12/08/21 Interval History: C/o nausea No pain Still plan SNF/hospice in [facility] near daughter Review of Systems Review of Systems: Yes all other systems are reviewed and are negative Physical Exam Vital Signs: Vital Signs: Last Vital Signs Temp 98.5 F 12/08/21 07:52 Pulse 99 12/08/21 07:52 Resp 26 H 12/08/21 07:52 BP 126/74 12/08/21 07:52 Pulse Ox 91 L 12/08/21 07:52 O2 Del Method 12/08/21 07:52 O2 Flow Rate 2 12/08/21 07:52 BMI result Body Mass Index 18.5 Gen: in no acute distress but cachectic HEENT: sclera anicteric, moist mucus membranes, bitemporal wasting Neck: supple Lungs: clear to auscultation bilaterally Heart: regular rate and rhythm, no murmurs Abd: soft, non-tender, non-distended Ext: no edema Skin: warm/well-perfused Neuro: alert and oriented x3, no focal findings Psych: restricted affect Objective Data Active Medications Al Hydroxide/Mg Hydroxide (Magnesium Hydrox/Alum Hydrox 30 Ml Oral.Susp) 30 ml PO Q4H PRN PRN Reason: Heartburn/Nausea Dextrose (Dextrose 50 % 25 Gm/50 Ml Syringe) 25 gm IVPUSH Q15M PRN; Protocol PRN Reason: per Hypoglycemia Standing Ord. Glucose (Glucose Gel 15 Gm Gel..Gram.) 15 gm PO Q15M PRN; Protocol PRN Reason: per Hypoglycemia Standing Ord. Guaifenesin (Guaifenesin 100 Mg/5 Ml Liquid) 5 ml PO Q4H PRN PRN Reason: Cough Last Admin: 12/02/21 09:12 Dose: 5 ml Documented By: KIESHA Hydromorphone HCl (Hydromorphone Hcl 0.5 Mg/0.5 Ml Syringe) 0.5 mg IVPUSH Q4H PRN; Protocol PRN Reason: Breakthrough Pain Last Admin: 12/04/21 06:20 Dose: 0.5 mg Documented By: DEWAYNE Insulin Human Lispro (Insulin Lispro 100 Unit/Ml 3 Ml Vial) 0 unit SUBCUT QIDAS COUNTS INCLUDE 234 BEDS AT THE [facility]; Protocol Last Admin: 12/08/21 07:55 Dose: 4 unit Documented By: JACINTO Melatonin (Melatonin 3 Mg Tablet) 6 mg PO BEDTIME PRN PRN Reason: Insomnia Last Admin: 12/07/21 21:30 Dose: 6 mg Documented By: JENNIFER Ondansetron HCl (Ondansetron Odt 8 Mg Tab.Rapdis) 8 mg TRANSLINGU Q8H PRN PRN Reason: nausea/vomiting Quetiapine Fumarate (Quetiapine Fumarate 25 Mg Tablet) 12.5 mg PO Q12H PRN PRN Reason: agitation Sodium Chloride (0.9 % Sodium Chloride Flush 3 Ml Syringe) 3 ml IVFLUSH QSHIFT COUNTS INCLUDE 234 BEDS AT THE [facility] Last Admin: 12/08/21 07:59 Dose: 3 ml Documented By: JACINTO Labs CBC & Chem 7: 12/03/21 09:05 12/04/21 10:03 Labs: Laboratory Results - last 24 hr 12/07/21 12/07/21 12/07/21 13:19 16:10 19:46 POC Glucose 348 H 356 H* 199 H 12/08/21 07:33 POC Glucose 226 H Assessment and Plan (1) Pulmonary nodules: Status: Acute (2) Acute kidney failure: Status: Acute (3) Right lower lobe lung mass: Status: Acute Plan hospital d#13 81yo M with CAD s/p AICD, DM2, HTN presenting with weakness + weight loss in setting of lung mass for which he is undergoing outpatient workup by Dr Cespedes, admitted with prerenal MAYELA, acute hypoxic respiratory failure, fall, and moderate protein/calorie malnutrition - declines invasive workup or procedures - wishes to transition to hospice care, preferably at SNF in [place] area near daughter; CM working on this - in meanwhile, d/c'ed non-comfort medications + laboratory studies. give PO morphine prn pain/dyspnea, PO ondansetron prn nausea/vomiting, PO lorazepam prn anxiety. In my clinical judgment, the patient requires continued hospitalization for the following reasons: placement, unable to take care of self at home Quality Stroke Does the patient have a stroke diagnosis?: No VTE Prior VTE?: No VTE Risk Level:: Medical - moderate - high VTE Device Contraindication: N/A - Device Ordered VTE Drug Contraindication: N/A - Med Ordered
[2021-12-08] MEDS: Ondansetron ODT 8 MG TAB.RAPDIS TRANSLINGU (10:41)
[2021-12-08 13:00] LABS: Glucose, Whole Blood 137 mg/dL (60-115)
[2021-12-08 13:04] VITALS: BP 126/74; PULSE 99; O2SAT 91
--- NOTE | 2021-12-08 13:05 | MHC.CM.PN ---
[facility] IS CURRENTLY UNABLE TO ACCEPT ADMISSIONS PER CONVERSATION WITH ADMISSIONS LIAISON, MARCELINA ([phone]), SANDY ([employer]) IS LOCATED AT THE SISTER FACILITY, [facility] ([phone]) MESSAGE LEFT FOR SANDY TO CALL THIS WRITE BACK. [facility] REFERRAL LIST UPDATED TO INCLUDE [facility]
[2021-12-08] MEDS: Morphine Sulfate Oral Sol 10 MG/5 ML SOLUTION 5 MG PO ×2 (14:34→21:13)
[2021-12-08 16:00] VITALS: BP 109/55; PULSE 97; RESP 18; TEMP 36.6; O2SAT 97
[2021-12-08 16:44] LABS: Glucose, Whole Blood 131 mg/dL (60-115)
--- NOTE | 2021-12-08 18:16 | PC.NURSE ---
Pt medicated this shift with po zofran and po morphine for c/o nausea and back pain. Good effect. Pt drowsy but arousable throughout the day. Not eating meals but is drinking a small amount of fluids
[2021-12-08 19:53] VITALS: BP 100/52; PULSE 100; RESP 18; TEMP 36.2; O2SAT 94
[2021-12-08 20:25] LABS: Glucose, Whole Blood 94 mg/dL (60-115)
--- NOTE | 2021-12-09 06:03 | PM.EVENT ---
Event Note Date of Service: 12/09/21 Event Note: note: RN mentioned that patient around 05:45AM on examination patient was not respond to verbal stimuli, no corneal reflex, pupils are fixed and nonreactive to light. Patient pronounced at 05:50AM on 12/09/2021. Family notified.
--- NOTE | 2021-12-09 06:13 | PC.NURSE ---
Pt found with no resp no pulse notified pronounced pt at 0550.Organ bank notified pt declined.Daughter Ailyn notified she will call with arrangements.
--- NOTE | 2021-12-09 07:33 | P.DN_ITS ---
Discharge Sum: Prov Provider Primary care physician: Vernon Guido MD Consults: 11/27/21 07:54 Consult to Hematology / Oncology Routine Consulting Provider: Braden Cespedes Reason for consultation: lung mass Has provider been notified: No 11/27/21 08:07 Consult to Thoracic Surgery Routine Consulting Provider: Michelle Aguilar Reason for consultation: lung mass, had office appointment for 11/28/21 Has provider been notified: No 12/03/21 12:10 Consult to Care Team Routine Comment: Reason for consultation: adjustment depression from bereavment; best friend 2 wk ago Discharge Sum: Diag Contributing Factors (1) Pulmonary nodules: (2) Acute kidney failure: (3) Right lower lobe lung mass: (4) Acute respiratory failure with hypoxia: Discharge Sum: Summary Date and Time Date of admission: 11/26/21 15:41 Date of : 12/09/21 Time of : 05:50 Summary Details: from admission H+P by hospitalist Rakan [facility], 11/26/21: 81 year male with Diabetes controlled with Metformin and Glipizide, h/o CAD with no agnia symptoms, s/p pace maker for history of bradycardia, HLD on statin. In october was diagnosed with??a 2.2 x 3 cm mass/nodule in the superior segment of theright lower lobe of th lung by CT and subsequent PET scan showed no metastic activity. He is was planned to see thoracic surgery ( Dr. Aguilar)? on 11/28/21, wa oncologist is Dr. Cespedes. He presents on this occasion with weakness, fatigue, poor apette, decrease oral for 2 to 3 weeks, and has lost about 30 Ib onver the last 3 months, in fact he has not felt well since May. He smoked for nearly 52 years. ? He is found to have MAYELA? and started on intravenous fluid and is bein admitted. This 81yo M with CAD s/p AICD, DM2, HTN presenting with weakness + weight loss in setting of lung mass for which he is undergoing outpatient workup by Dr Cespedes was admitted with prerenal MAYELA, acute hypoxic respiratory failure, falls, and moderate protein/calorie malnutrition. Ultimately, after extensive conversation with him and his healthcare proxy, his daughter Ailyn, he declined curative intent including invasive workup or procedures, and planned to transition to hospice care at a SNF in [facility] near his daughter. He suddenly without distress in the hospital on 12/09/21 at 05:50. Additional Data Attending physician: Samuel Patel MD
== END 2021-12-09 05:50 | disposition expired | DRG 682 ==
LOC: HO.ED 13:52 → HO.EDOVER 15:53 → HO.S3 11-27 16:12
PROVIDERS: Admitting Provider Internal Medicine; Emergency Provider Emergency Medicine; PCP Internal Medicine; Visit Provider Family Medicine
DX: N17.9 Acute kidney failure, unspecified (principal); J96.01 Acute respiratory failure with hypoxia; C34.31 Malignant neoplasm of lower lobe, right bronchus or lung; R64 Cachexia; Z68.1 Body mass index [BMI] 19.9 or less, adult; E44.0 Moderate protein-calorie malnutrition; E86.0 Dehydration; R62.7 Adult failure to thrive; I25.10 Atherosclerotic heart disease of native coronary artery without angina pectoris; Z66 Do not resuscitate; E78.5 Hyperlipidemia, unspecified; E11.9 Type 2 diabetes mellitus without complications; Z20.822 Contact with and (suspected) exposure to COVID-19; Z95.810 Presence of automatic (implantable) cardiac defibrillator; Z87.891 Personal history of nicotine dependence; Z79.82 Long term (current) use of aspirin; Z79.84 Long term (current) use of oral hypoglycemic drugs; Z79.899 Other long term (current) drug therapy
CPT/HCPCS: 36415; 70450; 71045; 71101; 72100; 72125; 80048; 80076; 81001; 82272; 82947; 83605; 83690; 84443; 85025; 85027; 87040; 87086; 87635; 93005; 96360; 96361; 97110; 97116; 97162; 99285; J1170